=== PATIENT | female | born 1975 | race Caucasian/White ===

== ENCOUNTER 2019-01-23 21:19 | Inpatient (IN) | payer BC ==
[~2019-01-23] VITALS: Ht 167.6 cm; Wt 119.1 kg
[2019-01-23] MEDS: SODIUM CHLORIDE 0.9% 1000ML 1,000 ML IV SCH (01:00)
[~2019-01-23 21:19] MED LIST: METOPROLOL TART50 MG PO; NEXIUM40 MG PO; XANAX0.25 MG PO
--- OUTSIDE RECORDS SUMMARY | 2019-01-23 21:22 | XMS REPORT | Summary of Care ---
Author Organization Unknown Address Unknown Phone Unavailable Encounter HQ Alex(MARIAN) [id number] Date(s): 04/15/14 - 04/16/14 [facility] [address] [address] Discharge Disposition: Home Physician Attending: Rebecca De Dios MD Physician_Referring: Rebecca De Dios MD Reason for Visit 625.3/626.2/218.9 Vital Signs 1 2 3 Most recent to oldest [Reference Range]: 167.64 cm (04/10/14 11:31 AM) Height 98.6 DegF (04/16/14 11:45 AM) 98.0 DegF (04/16/14 8:07 AM) 97.7 DegF (04/16/14 4:16 AM) Temperature Oral [96.4-99.1 DegF] 126 mmHg (04/16/14 11:45 AM) 116 mmHg (04/16/14 8:07 AM) 100 mmHg (04/16/14 4:16 AM) Systolic Blood Pressure [90-140 mmHg] 78 mmHg (04/16/14 11:45 AM) 72 mmHg (04/16/14 8:07 AM) 66 mmHg (04/16/14 4:16 AM) Diastolic Blood Pressure [60-90 mmHg] 16 BRMIN (04/16/14 11:45 AM) 16 BRMIN (04/16/14 8:07 AM) 16 BRMIN (04/16/14 4:16 AM) Respiratory Rate [14-20 BRMIN] 81 bpm (04/16/14 11:45 AM) 76 bpm (04/16/14 8:07 AM) 84 bpm (04/16/14 4:16 AM) Peripheral Pulse Rate [60-100 bpm] 113.182 kg (04/10/14 11:31 AM) Weight 40.27 m2 (04/10/14 11:31 AM) Body Mass Index Problem List Condition Effective Dates Status Health Status Informant Back pain(Confirmed) Active Dysmenorrhea(Confirm Active ed) GERD - Active Gastro-esophageal reflux disease(Confirmed) Hypertension(Confirm Active ed) Menorrhagia(Confirme Active d) Uterine Active fibroid(Confirmed) Allergies, Adverse Reactions, Alerts Substance Reaction Severity Status Advil Cold & Sinus Active Bactrim Active Vicodin Active Medications Al hydroxide/Mg hydroxide/simethicone 200 mg-200 mg-20 mg/5 mL oral suspension 30 mL, Route: PO, Drug Form: SUSP, Dosing Weight 113.182, kg, Q4H, PRN Indigesti on, Start date: 04/15/14 10:59:00, Duration: 30 day, Stop date: 05/15/14 10:58:0 0 Notes: (aluminum hydroxide-magnesium hyd-simethicone [phone]/5ml 30 ml S ) Start Date: 04/15/14 Stop Date: 04/16/14 Status: Discontinued bisacodyl 10 mg, 1 supp, Route: MS, Drug form: SUPP, Q12H, Dosing Weight 113.182, kg, PRN Constipation, Start date: 04/15/14 10:59:00, Duration: 30 day, Stop date: 10:58:00 Notes: (Same As: Dulcolax, Bisco-Lax) Start Date: 04/15/14 Stop Date: 04/16/14 Status: Discontinued cefOXitin (SCIP) + Sodium Chloride 0.9% IV 100 mL 1 gm, Route: IVPB, Q6H, Dosing Weight 113.182, kg, Start date: 04/15/14 18:00:00 , Duration: 1 doses or times, Stop date: 04/15/14 18:00:00 Notes: (Same As: Mefoxin) Start Date: 04/15/14 Stop Date: 04/15/14 Status: Completed cefOXitin (SCIP) + Sodium Chloride 0.9% IV 100 mL 1 gm, Route: IVPB, Q6H, Dosing Weight 113.182, kg, Start date: 04/15/14 12:00:00 , Duration: 1 doses or times, Stop date: 04/15/14 12:00:00 Notes: (Same As: Mefoxin) Start Date: 04/15/14 Stop Date: 04/15/14 Status: Deleted cefOXitin + Sodium Chloride 0.9% IV 100 mL 2 gm, Route: IVPB, ONCALL, Dosing Weight 113.182, kg, Start date: 04/10/14 12:00 :00, Duration: 6 day, Stop date: 04/16/14 11:59:00 Notes: (Same As: Mefoxin) Start Date: 04/10/14 Stop Date: 04/15/14 Status: Completed cyclobenzaprine 5 mg, PO, as needed for muscle spasm, 0 Refill(s) Start Date: 04/10/14 Status: Ordered Demerol HCl 50 mg, 1 mL, Route: IV, Drug form: INJ, Q6H, Dosing Weight 113.182, kg, PRN Pain Score 7-10, Start date: 04/15/14 11:08:00, Duration: 3 doses or times, Stop yunior e: Limited # of times Notes: (Same as: Demerol) "Use Precaution in Elderly, Seizure disorders, and Re nal impairment" Start Date: 04/15/14 Stop Date: 04/16/14 Status: Completed diphenhydrAMINE 12.5 mg, Route: IVP, Drug form: INJ, Q6H, Dosing Weight 113.182, kg, PRN Itching , Start date: 04/15/14 11:14:00, Duration: 30 day, Stop date: 05/15/14 11:13:00 Start Date: 04/15/14 Stop Date: 04/15/14 Status: Discontinued fentaNYL 50 microgram, Route: IVP, Q5Min, Dosing Weight 113.182, kg, PRN Pain Score 7-10, Start date: 04/15/14 11:14:00, Duration: 2 doses or times, Stop date: Limited # of times Start Date: 04/15/14 Stop Date: 04/15/14 Status: Discontinued fentaNYL 25 microgram, Route: IVP, Q5Min, Dosing Weight 113.182, kg, PRN Pain Score 4-6, Start date: 04/15/14 11:14:00, Duration: 4 doses or times, Stop date: Limited # of times Start Date: 04/15/14 Stop Date: 04/15/14 Status: Discontinued flumazenil 0.2 mg, Route: IVP, PRN, Dosing Weight 113.182, kg, PRN Benzodiazepine Reversal, Initial dose, Start date: 04/15/14 11:14:00, Duration: 30 day, Stop date: 05/15 11:13:00 Start Date: 04/15/14 Stop Date: 04/15/14 Status: Discontinued hydromorphone 0.5 mg, Route: IVP, Q5Min, Dosing Weight 113.182, kg, PRN Pain Score 7-10, Start date: 04/15/14 11:14:00, Duration: 4 doses or times, Stop date: Limited # of ti mes Start Date: 04/15/14 Stop Date: 04/15/14 Status: Discontinued Lactated Ringers Injection IV 1,000 mL 1,000 mL, Rate: 125 ml/hr, Infuse over: 8 hr, Route: IV, Dosing Weight 113.182 k g, Total Volume: 1,000, Start date: 04/15/14 10:59:00, Duration: 30 day, Stop da te: 05/15/14 10:58:00 Start Date: 04/15/14 Stop Date: 04/16/14 Status: Discontinued Lactated Ringers Injection IV 1000 mL 1,000 mL, Rate: 125 ml/hr, Infuse over: 8 hr, Route: IV, Dosing Weight 113.182 k g, Total Volume: 1,000, Start date: 04/15/14 11:14:00, Duration: 30 day, Stop da te: 05/15/14 11:13:00 Start Date: 04/15/14 Stop Date: 04/15/14 Status: Discontinued Lactated Ringers Injection IV 1000 mL 1,000 mL, Rate: 25 ml/hr, Infuse over: 40 hr, Route: IV, Dosing Weight 113.182 k g, Total Volume: 1,000, Start date: 04/15/14 7:41:00, Duration: 30 day, Stop yunior e: 05/15/14 7:40:00 Start Date: 04/15/14 Stop Date: 04/15/14 Status: Discontinued magnesium hydroxide 30 ml, Route: PO, Drug Form: SUSP, Dosing Weight 113.182, kg, Daily, PRN Constip ation, Start date: 04/15/14 10:59:00, Duration: 30 day, Stop date: 05/15/14 10:5 8:00 Notes: (Same as: Milk of Page, MOM) Start Date: 04/15/14 Stop Date: 04/16/14 Status: Discontinued meloxicam 15 mg oral tablet 15 mg=1 tab, PO, Daily, 0 Refill(s) Start Date: 04/10/14 Status: Ordered meperidine 12.5 mg, Route: IVP, Q30Min, Dosing Weight 113.182, kg, PRN Other -See Comment, For shivering, Start date: 04/15/14 11:14:00, Duration: 2 doses or times, Stop d ate: Limited # of times Start Date: 04/15/14 Stop Date: 04/15/14 Status: Discontinued metoprolol 50 mg oral tablet, extended release 50 mg=1 tab, PO, Daily, 0 Refill(s) Start Date: 04/10/14 Status: Ordered morphine Sulfate 4 mg, Route: IVP, Q5Min, Dosing Weight 113.182, kg, PRN Pain Score 7-10, Start d ate: 04/15/14 11:14:00, Duration: 3 doses or times, Stop date: Limited # of time s Start Date: 04/15/14 Stop Date: 04/15/14 Status: Discontinued morphine Sulfate 2 mg, Route: IVP, Q5Min, Dosing Weight 113.182, kg, PRN Pain Score 4-6, Start da te: 04/15/14 11:14:00, Duration: 5 doses or times, Stop date: Limited # of times Start Date: 04/15/14 Stop Date: 04/15/14 Status: Discontinued naloxone 0.04 mg, Route: IVP, Q2MIN, Dosing Weight 113.182, kg, PRN Narcotic Reversal, St art date: 04/15/14 11:14:00, Duration: 8 doses or times, Stop date: Limited # of times Start Date: 04/15/14 Stop Date: 04/15/14 Status: Discontinued NexIUM 40 mg oral delayed release capsule 40 mg=1 cap, PO, Daily, 0 Refill(s) Start Date: 04/10/14 Status: Ordered ondansetron 4 mg, Route: IVP, ONCE, Dosing Weight 113.182, kg, PRN Nausea & Vomiting, Start date: 04/15/14 11:14:00 Start Date: 04/15/14 Stop Date: 04/15/14 Status: Discontinued ondansetron 4 mg, 2 mL, Route: IVP, Drug form: INJ, Q6H, Dosing Weight 113.182, kg, PRN Naus ea & Vomiting, Start date: 04/15/14 10:59:00, Duration: 30 day, Stop date: 05/15/14 10:58:00 Notes: (Same as: Bhupendra) Start Date: 04/15/14 Stop Date: 04/16/14 Status: Discontinued oxyCODONE 5 mg, Route: PO, Drug form: TAB, Q4H, Dosing Weight 113.182, kg, PRN Pain Score 4-6, Start date: 04/15/14 11:14:00, Duration: 30 day, Stop date: 05/15/14 11:13: 00 Start Date: 04/15/14 Stop Date: 04/15/14 Status: Discontinued oxyCODONE 10 mg, Route: PO, Drug form: TAB, Q4H, Dosing Weight 113.182, kg, PRN Pain Score 7-10, Start date: 04/15/14 11:14:00, Duration: 30 day, Stop date: 05/15/14 11:1 3:00 Start Date: 04/15/14 Stop Date: 04/15/14 Status: Discontinued oxyCODONE 5 mg/5 mL oral solution 5 mg, Route: NG, Drug form: LIQ, Q4H, Dosing Weight 113.182, kg, PRN Pain Score 4-6, Start date: 04/15/14 11:14:00, Duration: 30 day, Stop date: 05/15/14 11:13: 00 Start Date: 04/15/14 Stop Date: 04/15/14 Status: Discontinued oxyCODONE 5 mg/5 mL oral solution 10 mg, Route: NG, Drug form: LIQ, Q4H, Dosing Weight 113.182, kg, PRN Pain Score 7-10, Start date: 04/15/14 11:14:00, Duration: 30 day, Stop date: 05/15/14 11:1 3:00 Start Date: 04/15/14 Stop Date: 04/15/14 Status: Discontinued promethazine 6.25 mg, Route: IVPB, ONCE, Dosing Weight 113.182, kg, PRN Nausea & Vomiting, Start date: 04/15/14 11:14:00 Start Date: 04/15/14 Stop Date: 04/15/14 Status: Discontinued promethazine 12.5 mg, 0.5 mL, Route: IM, Drug form: INJ, Q4H, Dosing Weight 113.182, kg, PRN Nausea & Vomiting, Start date: 04/15/14 10:59:00, Duration: 30 day, Stop date: 05/15/14 10:58:00 Notes: Do not give IV push. (Same as: Phenergan) Start Date: 04/15/14 Stop Date: 04/16/14 Status: Discontinued simethicone 160 mg, 2 tab, Route: PO, Drug form: CHEWTAB, Q2H, Dosing Weight 113.182, kg, MS N Gas, Start date: 04/15/14 10:59:00, Duration: 30 day, Stop date: 05/15/14 10:5 8:00 Notes: (Same as: Mylicon) Start Date: 04/15/14 Stop Date: 04/16/14 Status: Discontinued Tylenol with Codeine #3 oral tablet 2 tab, Route: PO, Drug Form: TAB, Dosing Weight 113.182, kg, Q6H, PRN Pain Score 4-6, Start date: 04/16/14 9:13:00, Duration: 30 day, Stop date: 05/16/14 9:12:00 Notes: Do not exceed 4gm/day of acetaminophen. (Same as: Tylenol with Codeine # 3) Start Date: 04/16/14 Stop Date: 04/16/14 Status: Discontinued Tylenol with Codeine #3 oral tablet 1 tab, PO, Q6H, for pain, # 30 tab, 0 Refill(s) Start Date: 04/16/14 Status: Ordered Tylenol with Codeine #3 oral tablet 1 tab, Route: PO, Drug Form: TAB, Dosing Weight 113.182, kg, Q6H, PRN Pain Score 1-3, Start date: 04/16/14 9:11:00, Duration: 30 day, Stop date: 05/16/14 9:10:00 Notes: Do not exceed 4gm/day of acetaminophen. (Same as: Tylenol with Codeine # 3) Start Date: 04/16/14 Stop Date: 04/16/14 Status: Discontinued Results BLOOD BANK RESULTS Most recent to 1 2 oldest [Reference Range]: ABO/Rh A POS *Unknown* (04/10/14 12:35 PM) Antibody Scrn Negative (04/10/14 12:35 PM) CHEM PANEL Most recent to 1 2 oldest [Reference Range]: Glucose Lvl [70-99 92 mg/dL 1 mg/dL] (04/10/14 12:35 PM) 1Interpretive Data: Adult reference range values reflect the clinical guidelines of the [place] [employer]. URINE CHEM Most recent to 1 2 oldest [Reference Range]: U Preg [Negative] Negative (04/15/14 6:15 AM) IMMUNOLOGY Most recent to 1 2 oldest [Reference Range]: Treponemal Scr [Non Non Reactive Reactive] *NA* (04/10/14 12:35 PM) HIV 1/2 Ab Negative [Negative] *NA* (04/10/14 12:35 PM) Hep Bs Ag [Negative] Negative *NA* (04/10/14 12:35 PM) Hep C Ab Negative *NA* (04/10/14 12:35 PM) HEMATOLOGY Most recent to 1 2 oldest [Reference Range]: WBC [3.7-10.4 K/CMM] 10.3 K/CMM 10.6 K/CMM (04/16/14 6:20 AM) *HI* (04/10/14 12:35 PM) RBC [4.20-5.40 4.25 M/CMM 5.14 M/CMM M/CMM] (04/16/14 6:20 AM) (04/10/14 12:35 PM) Hgb [12.0-16.0 g/dL] 12.3 g/dL 14.9 g/dL (04/16/14 6:20 AM) (04/10/14 12:35 PM) Hct [36.0-48.0 %] 37.1 % 44.9 % (04/16/14 6:20 AM) (04/10/14 12:35 PM) MCV [80.0-98.0 fL] 87.3 fL 87.2 fL (04/16/14 6:20 AM) (04/10/14 12:35 PM) MCH [27.0-31.0 pg] 29.0 pg 29.0 pg (04/16/14 6:20 AM) (04/10/14 12:35 PM) MCHC [32.0-36.0 33.3 g/dL 33.2 g/dL g/dL] (04/16/14 6:20 AM) (04/10/14 12:35 PM) RDW [11.5-14.5 %] 13.6 % 13.3 % (04/16/14 6:20 AM) (04/10/14 12:35 PM) Platelet [133-450 241 K/CMM 275 K/CMM K/CMM] (04/16/14 6:20 AM) (04/10/14 12:35 PM) MPV [7.4-10.4 fL] 7.8 fL 8.2 fL (04/16/14 6:20 AM) (04/10/14 12:35 PM) Segs [45.0-75.0 %] 73.3 % 66.7 % (04/16/14 6:20 AM) (04/10/14 12:35 PM) Lymphocytes 19.2 % 25.8 % [20.0-40.0 %] *LOW* (04/10/14 12:35 PM) (04/16/14 6:20 AM) Monocytes [2.0-12.0 5.7 % 5.0 % %] (04/16/14 6:20 AM) (04/10/14 12:35 PM) Eosinophils [0.0-4.0 1.3 % 1.4 % %] (04/16/14 6:20 AM) (04/10/14 12:35 PM) Basophils [0.0-1.0 0.5 % 1.1 % %] (04/16/14 6:20 AM) *HI* (04/10/14 12:35 PM) Segs-Bands # 7.5 K/CMM 7.1 K/CMM [1.5-8.1 K/CMM] (04/16/14 6:20 AM) (04/10/14 12:35 PM) Lymphocytes # 2.0 K/CMM 2.7 K/CMM [1.0-5.5 K/CMM] (04/16/14 6:20 AM) (04/10/14 12:35 PM) Monocytes # [0.0-0.8 0.6 K/CMM 0.5 K/CMM K/CMM] (04/16/14 6:20 AM) (04/10/14 12:35 PM) Eosinophils # 0.1 K/CMM 0.2 K/CMM [0.0-0.5 K/CMM] (04/16/14 6:20 AM) (04/10/14 12:35 PM) Basophils # [0.0-0.2 0.1 K/CMM K/CMM] (04/10/14 12:35 PM) Medications Administered During Your Visit No data available for this section Immunizations No data available for this section Procedures Procedure Type Body Site Date of Procedure Related Diagnosis Arm repair1 Cholecystectomy Foot joint operations Lumpectomy of breast Tonsillectomy 1unable to full extend due to tension bands Social History Social History Type Response Substance Abuse Use: None Alcohol Use: Never Smoking Status Never smoker, Exposure to Tobacco Smoke None, Cigarette Smoking Last 365 Days No, Reg Smoking Cessation Counseling No
--- OUTSIDE RECORDS SUMMARY | 2019-01-23 21:22 | XMS REPORT | Summary of Care ---
Author Author [facility] Organization [facility] Address Unknown Phone Unavailable Encounter HQ Deannantr_nicole(FIN) [id number] Date(s): 06/02/17 - 06/03/17 [facility] [address], [address] [place], [place] [id number]- [phone] Vital Signs No data available for this section Problem List Condition Effective Dates Status Health Status Informant Anxiety(Confirmed) Resolved Asthma(Confirmed) Active Depression(Confirmed Resolved ) GERD - Active Gastro-esophageal reflux disease(Confirmed) History of liver Active disease(Confirmed) Hypertension(Confirm Active ed) Hypertriglyceridemia Active (Confirmed) Morbid Active obesity(Confirmed) Allergies, Adverse Reactions, Alerts Substance Reaction Severity Status acetaminophen1 Active sulfamethoxazole-trimetho Active prim2 ibuprofen-pseudoephedrine Active 3 Advil Cold & Sinus Active Bactrim Active Vicodin Active acetaminophen-HYDROcodone Active 4 guaiFENesin5 Active 1Data migrated from [employer] on 09/30/14. Originally documented as TYLENOL. 2Data migrated from [employer] on 09/30/14. Originally documented as BACTRIM. 3Data migrated from [employer] on 09/30/14. Originally documented as ADVIL COLD SINUS. 4Data migrated from [employer] on 09/30/14. Originally documented as VICODIN. 5Data migrated from [employer] on 09/30/14. Originally documented as ROBITUSIN. Medications No data available for this section Results No data available for this section Immunizations Given and Recorded Vaccine Date Status Refusal Reason Hx influenza vaccine-unspecified 05/05/17 Recorded Procedures Procedure Date Related Diagnosis Body Site Microscopic examination of cervical 03/05/15 Papanicolaou smear1 Partial hysterectomy 04/05/14 Colonoscopy2 03/05/14 Arm repair3 Cholecystectomy Foot joint operations Lumpectomy of breast Mammogram4 Tonsillectomy 1negative 2negative 3unable to full extend due to tension bands 4negative Social History Social History Type Response Substance Abuse Use: None. Exercise 1 Employment/School Status: Employed. Work/School description: [employer]. Alcohol Never Smoking Status Never smoker; Exposure to Tobacco Smoke None; Cigarette Smoking Last 365 Days No; Reg Smoking Cessation Counseling No 1not currently Assessment and Plan No data available for this section
--- OUTSIDE RECORDS SUMMARY | 2019-01-23 21:22 | XMS REPORT | Summary of Care ---
Author Author [facility] Organization [facility] Address Unknown Phone Unavailable Encounter NAKIA Johnson(MARIAN) [id number] Date(s): 01/15/16 - 01/15/16 [facility] [address] [place] [address]- [phone] Discharge Disposition: Home or Self Care Attending Physician: Job Ryder Referring Physician: Job Ryder Vital Signs No data available for this section Problem List Condition Effective Dates Status Health Status Informant Allergy(Confirmed)1 Resolved Anxiety(Confirmed) Resolved Back pain(Confirmed) Active Depression(Confirmed Resolved ) Dysmenorrhea(Confirm Active ed) GERD - Active Gastro-esophageal reflux disease(Confirmed) History of liver Resolved disease(Confirmed) Hypertension(Confirm Active ed) Menorrhagia(Confirme Active d) Morbid Active obesity(Confirmed) Uterine Active fibroid(Confirmed) 1multiple Allergies, Adverse Reactions, Alerts Substance Reaction Severity Status acetaminophen1 Active acetaminophen-HYDROcodone Active 2 Advil Cold & Sinus Active Bactrim Active guaiFENesin3 Active ibuprofen-pseudoephedrine Active 4 sulfamethoxazole-trimetho Active prim5 Vicodin Active 1Data migrated from [employer] on 09/30/14. Originally documented as TYLENOL. 2Data migrated from [employer] on 09/30/14. Originally documented as VICODIN. 3Data migrated from [employer] on 09/30/14. Originally documented as ROBITUSIN. 4Data migrated from [employer] on 09/30/14. Originally documented as ADVIL COLD SINUS. 5Data migrated from [employer] on 09/30/14. Originally documented as BACTRIM. Medications No data available for this section Results No data available for this section Immunizations No data available for this section Procedures Procedure Date Related Diagnosis Body Site Microscopic examination of cervical 03/05/15 Papanicolaou smear1 Partial hysterectomy 04/05/14 Colonoscopy2 03/05/14 Arm repair3 Cholecystectomy Foot joint operations Lumpectomy of breast Mammogram4 Tonsillectomy 1negative 2negative 3unable to full extend due to tension bands 4negative Social History Social History Type Response Substance Abuse Use: None. Exercise 1 Employment/School Status: Employed. Alcohol Never Smoking Status Never smoker; Exposure to Tobacco Smoke None; Cigarette Smoking Last 365 Days No; Reg Smoking Cessation Counseling No 1not currently Assessment and Plan No data available for this section
--- OUTSIDE RECORDS SUMMARY | 2019-01-23 21:22 | XMS REPORT | Summary of Care ---
Author Organization Unknown Address Unknown Phone Unavailable Encounter HQ Encntr_nicole([facility]) [id number] Date(s): 11/15/13 - 11/15/13 [facility] Outpatient Imaging - [address] [address] [place] Discharge Disposition: Home Physician Attending: Roel Parker MD Reason for Visit 724.5 - BACKACHE NOS Problem List No data available for this section Allergies, Adverse Reactions, Alerts Substance Reaction Severity Status Advil Cold & Sinus Active Medications No data available for this section Medications Administered During Your Visit No data available for this section Immunizations No data available for this section
--- OUTSIDE RECORDS SUMMARY | 2019-01-23 21:22 | XMS REPORT | Summary of Care ---
Author Organization Unknown Address Unknown Phone Unavailable Encounter HQ Deannantr_nicole(MARIAN) [id number] Date(s): 03/05/14 - 03/05/14 [facility] [address] Discharge Disposition: Home Physician Attending: Rebecca De Dios MD Physician_Referring: Rebecca De Dois MD Reason for Visit 626.2-ABNORMAL MENSTRUAL PERIODS Problem List No data available for this section Allergies, Adverse Reactions, Alerts Substance Reaction Severity Status Advil Cold & Sinus Active Medications No data available for this section Medications Administered During Your Visit No data available for this section Immunizations No data available for this section
--- OUTSIDE RECORDS SUMMARY | 2019-01-23 21:22 | XMS REPORT | Summary of Care ---
Author Author [facility] Organization [facility] Address Unknown Phone Unavailable Encounter NAKIA Johnson(MARIAN) [id number] Date(s): 01/01/18 - 01/01/18 [facility] [address] [place] [address]- Discharge Disposition: Home or Self Care Attending Physician: Rebecca De Dios MD Referring Physician: Rebecca De Dios MD Vital Signs No data available for this [...] Procedures Procedure Date Related Diagnosis Body Site Status Microscopic examination of cervical 03/05/15 Completed Papanicolaou smear1 Partial hysterectomy 04/05/14 Completed Colonoscopy2 03/05/14 Completed Arm repair3 Completed Cholecystectomy Completed Foot joint operations Completed Lumpectomy of breast Completed Mammogram4 Completed Tonsillectomy Completed 1negative 2negative 3unable to full extend due to tension bands 4negative Social History Social History Type Response Substance Abuse Use: None. Exercise 1 Employment/School Status: Employed. Work/School description: [employer]. Alcohol Never Smoking Status Never smoker; Exposure to Tobacco Smoke None; Cigarette Smoking Last 365 Days No; Reg Smoking Cessation Counseling No entered on: 05/31/17 1not currently Assessment and Plan No data available for this section
--- OUTSIDE RECORDS SUMMARY | 2019-01-23 21:22 | XMS REPORT | Summary of Care ---
Author Author [facility] Outpatient Imaging [facility] Outpatient Imaging [facility] Address Unknown Phone Unavailable Encounter NAKIA Johnson(MARIAN) [id number] Date(s): 12/31/14 - 12/31/14 [facility] Outpatient Imaging [facility] [address] [facility] [place], [place] [address] [place] [address] [phone] Discharge Disposition: Home Attending Physician: Rosalie Mcpherson MD Vital Signs No data available for [...] Procedures Procedure Date Related Diagnosis Body Site Arm repair1 Cholecystectomy Foot joint operations Lumpectomy of breast Tonsillectomy 1unable to full extend due to tension bands Social History Social History Type Response Substance Abuse Use: None. Alcohol Never Smoking Status Never smoker; Exposure to Tobacco Smoke None; Cigarette Smoking Last 365 Days No; Reg Smoking Cessation Counseling No Assessment and Plan No data available for this section
--- OUTSIDE RECORDS SUMMARY | 2019-01-23 21:22 | XMS REPORT | Summary of Care ---
Author Author [facility] Outpatient Imaging [facility] Outpatient Imaging [facility] Address Unknown Phone Unavailable Encounter NAKIA Johnson(MARIAN) [id number] Date(s): 03/03/15 - 03/03/15 [facility] Outpatient Imaging [facility] [address] [facility] [address] [address] [phone] Final: Abdominal Pain, Right Upper Quadrant Final: HEPATOMEGALY Final: Unspecified Disorder of Liver Discharge Disposition: Home Attending Physician: Luis Schafer MD Vital Signs No data available for [...]
--- OUTSIDE RECORDS SUMMARY | 2019-01-23 21:22 | XMS REPORT | Summary of Care ---
Author Organization Unknown Address Unknown Phone Unavailable Encounter HQ Samir_nicole(FIN) [id number] Date(s): 09/03/14 - 09/03/14 [facility] Outpatient Imaging - [place] [address] [place] [address] [facility] [phone] Discharge Disposition: Home Physician Attending: JASE HUNTER Vital Signs No data available for this section Problem List Condition Effective Dates Status Health Status Informant Back pain(Confirmed) Active Dysmenorrhea(Confirm Active ed) GERD - Active Gastro-esophageal reflux disease(Confirmed) Hypertension(Confirm Active ed) Menorrhagia(Confirme Active d) Uterine Active fibroid(Confirmed) Allergies, Adverse Reactions, Alerts Substance Reaction Severity Status Advil Cold & Sinus Active Bactrim Active Vicodin Active Medications No data available for this [...]
--- OUTSIDE RECORDS SUMMARY | 2019-01-23 21:22 | XMS REPORT | Continuity of Care Document ---
Author Author [employer] Organization [employer] Address Unknown Phone Unavailable Care Team Providers Care Carton Folder Name Role Phone [employer] Unavailable Unavailable Problems Problem Status Onset Date Classification Date Reported Comments Source Unspecified ovarian cyst, left side 01/06/2018 07/21/2018 [facility] R10.2 Active 12/25/2017 [facility] DX: M79.661=PAIN IN RIGHT LOWER LEG/S86. Active 01/11/2016 [facility] 789.01 - ABDMNAL PAIN RT Active 03/03/2015 [facility] 625.3/626.2/218.9 Active 03/28/2014 [facility] UNK Active 03/28/2014 [facility] 626.2-ABNORMAL MENSTRUAL PERIODS Active 03/03/2014 [facility] 724.5 - BACKACHE NOS Active 11/19/2013 [facility] Anxiety (finding) Resolved Problem 07/21/2018 [facility] Asthma (disorder) Active Problem 07/21/2018 [facility] Depressive disorder (disorder) Resolved Problem 07/21/2018 [facility] Gastroesophageal reflux disease (disorder) Active Problem 07/21/2018 [facility] [place] History of - liver disease (context-dependent category) Active Problem 07/21/2018 [facility] Hypertensive disorder, systemic arterial (disorder) Active Problem 07/21/2018 [facility] [place] Hypertriglyceridemia (disorder) Active Problem 07/21/2018 [facility] Morbid obesity (disorder) Active Problem 07/21/2018 [facility] Final: Abdominal Pain, Right Upper Quadrant 03/06/2015 [facility] Mahajan Final: HEPATOMEGALY 03/06/2015 [facility] [place] Final: Unspecified Disorder of Liver 03/06/2015 [facility] Mahajan Backache (finding) Active Problem [facility]/18[facility]2016 [facility] Dysmenorrhea (disorder) Active Problem 01/18/2016 [facility] Wu,[facility] Menorrhagia (finding) Active Problem 01/18/2016 [facility] Wu,[facility] Uterine leiomyoma (disorder) Active Problem 01/18/2016 [facility] Wu,[facility] Allergic disposition (disorder) Resolved Problem 01/18/2016 multiple [facility] Acquired absence of both cervix and uterus 07/21/2018 [facility] Medications Medication Details Route Status Patient Instructions Ordering Provider Order Date Source amoxicillin 500 mg oral tablet 500 mg=1 tab, PO, BID, X 10 day, # 20 tab, 0 Refill(s), Pharmacy: [facility] [id number] Active 06/02/2017 [facility] Fluticasone propionate 0.05 MG/ACTUAT Metered Dose Nasal [place] See Instructions, # 48 mL, Refill(s) 2, SHAKE LIQUID AND USE 1 SPRAY IN EACH NOSTRIL DAILY, Pharmacy: [facility] [id number] Active 06/01/2017 [facility] Fluticasone propionate 0.05 MG/ACTUAT Metered Dose Nasal [place] 1 spray, NASAL, Daily, # 1 ea, 2 Refill(s), Pharmacy: [facility] [id number] No Longer Active 05/31/2017 [facility] benzonatate 100 mg oral capsule 100 mg=1 cap, PO, TID, do not crush or chew, X 10 day, # 30 cap, 0 Refill(s), Pharmacy: [facility] [id number] Active 05/31/2017 [facility] 200 ACTUAT Albuterol 0.09 MG/ACTUAT Metered Dose Inhaler [ProAir HFA] 1 puff, INHALER, Q4H, PRN for wheezing, # 8.5 gm, 0 Refill(s), [facility] [id number] Active 05/31/2017 [facility] Acetaminophen 300 MG / Codeine Phosphate 30 MG Oral Tablet [Tylenol with Codeine #3] 1 tab, PO, Q6H, for pain, # 30 tab, 0 Refill(s) Active 04/16/2014 [facility] Acetaminophen 300 MG / Codeine Phosphate 30 MG Oral Tablet [Tylenol with Codeine #3] 2 tab, Route: PO, Drug Form: TAB, Dosing Weight 113.182, kg, Q6H, PRN Pain Score 4-6, Start date: 04/16/14 9:13:00, Duration: 30 day, Stop date: 05/16/14 9:12:00Notes: Do not exceed 4gm/day of acetaminophen. (Same as: Tylenol with Codeine # 3) Inactive 04/16/2014 [facility] Acetaminophen 300 MG / Codeine Phosphate 30 MG Oral Tablet [Tylenol with Codeine #3] 1 tab, Route: PO, Drug Form: TAB, Dosing Weight 113.182, kg, Q6H, PRN Pain Score 1-3, Start date: 04/16/14 9:11:00, Duration: 30 day, Stop date: 05/16/14 9:10:00Notes: Do not exceed 4gm/day of acetaminophen. (Same as: Tylenol with Codeine # 3) Inactive 04/16/2014 [facility] cefOXitin (SCIP) + Sodium Chloride 0.9% IV 100 mL 1 gm, Route: IVPB, Q6H, Dosing Weight 113.182, kg, Start date: 04/15/14 18:00:00, Duration: 1 doses or times, Stop date: 04/15/14 18:00:00Notes: (Same As: Mefoxin) Inactive 04/16/2014 [facility] Cefoxitin 20 MG/ML Injectable Solution 1 gm, Route: IVPB, Q6H, Dosing Weight 113.182, kg, Start date: 04/15/14 12:00:00, Duration: 1 doses or times, Stop date: 04/15/14 12:00:00Notes: (Same As: Mefoxin) Inactive 04/15/2014 [facility] Oxycodone 5 mg, Route: PO, Drug form: TAB, Q4H, Dosing Weight 113.182, kg, PRN Pain Score 4-6, Start date: 04/15/14 11:14:00, Duration: 30 day, Stop date: 05/15/14 11:13:00 Inactive 04/15/2014 [facility] Promethazine 6.25 mg, Route: IVPB, ONCE, Dosing Weight 113.182, kg, PRN Nausea & Vomiting, Start date: 04/15/14 11:14:00 Inactive 04/15/2014 [facility] Ondansetron 4 mg, Route: IVP, ONCE, Dosing Weight 113.182, kg, PRN Nausea & Vomiting, Start date: 04/15/14 11:14:00 Inactive 04/15/2014 [facility] Fentanyl 50 microgram, Route: IVP, Q5Min, Dosing Weight 113.182, kg, PRN Pain Score 7-10, Start date: 04/15/14 11:14:00, Duration: 2 doses or times, Stop date: Limited # of times Inactive 04/15/2014 [facility] Morphine 4 mg, Route: IVP, Q5Min, Dosing Weight 113.182, kg, PRN Pain Score 7-10, Start date: 04/15/14 11:14:00, Duration: 3 doses or times, Stop date: Limited # of times Inactive 04/15/2014 [facility] Meperidine 12.5 mg, Route: IVP, Q30Min, Dosing Weight 113.182, kg, PRN Other -See Comment, For shivering, Start date: 04/15/14 11:14:00, Duration: 2 doses or times, Stop date: Limited # of times Inactive 04/15/2014 [facility] Oxycodone Hydrochloride 1 MG/ML Oral Solution 5 mg, Route: NG, Drug form: LIQ, Q4H, Dosing Weight 113.182, kg, PRN Pain Score 4-6, Start date: 04/15/14 11:14:00, Duration: 30 day, Stop date: 05/15/14 11:13:00 Inactive 04/15/2014 [facility] Diphenhydramine 12.5 mg, Route: IVP, Drug form: INJ, Q6H, Dosing Weight 113.182, kg, PRN Itching, Start date: 04/15/14 11:14:00, Duration: 30 day, Stop date: 05/15/14 11:13:00 Inactive 04/15/2014 [facility] Naloxone 0.04 mg, Route: IVP, Q2MIN, Dosing Weight 113.182, kg, PRN Narcotic Reversal, Start date: 04/15/14 11:14:00, Duration: 8 doses or times, Stop date: Limited # of times Inactive 04/15/2014 [facility] Flumazenil 0.2 mg, Route: IVP, PRN, Dosing Weight 113.182, kg, PRN Benzodiazepine Reversal, Initial dose, Start date: 04/15/14 11:14:00, Duration: 30 day, Stop date: 05/15/14 11:13:00 Inactive 04/15/2014 [facility] Hydromorphone 0.5 mg, Route: IVP, Q5Min, Dosing Weight 113.182, kg, PRN Pain Score 7-10, Start date: 04/15/14 11:14:00, Duration: 4 doses or times, Stop date: Limited # of times Inactive 04/15/2014 [facility] Calcium Chloride 0.0014 MEQ/ML / Potassium Chloride 0.004 MEQ/ML / Sodium Chloride 0.103 MEQ/ML / Sodium Lactate 0.028 MEQ/ML Injectable Solution 1,000 mL, Rate: 125 ml/hr, Infuse over: 8 hr, Route: IV, Dosing Weight 113.182 kg, Total Volume: 1,000, Start date: 04/15/14 11:14:00, Duration: 30 day, Stop date: 05/15/14 11:13:00 Inactive 04/15/2014 [facility] Demerol HCl 50 mg, 1 mL, Route: IV, Drug form: INJ, Q6H, Dosing Weight 113.182, kg, PRN Pain Score 7-10, Start date: 04/15/14 11:08:00, Duration: 3 doses or times, Stop date: Limited # of timesNotes: (Same as: Emiliano gruber) "Use Precaution in Elderly, Seizure disorders, and Renal impairment" No Longer Active 04/15/2014 [facility] Magnesium Hydroxide 30 ml, Route: PO, Drug Form: SUSP, Dosing Weight 113.182, kg, Daily, PRN Constipation, Start date: 04/15/14 10:59:00, Duration: 30 day, Stop date: 05/15/14 10:58:00Notes: (Same as: Milk of Magnesia, MOM) No Longer Active 04/15/2014 [facility] Aluminum Hydroxide 40 MG/ML / Magnesium Hydroxide 40 MG/ML / Simethicone 4 MG/ML Oral Suspension 30 mL, Route: PO, Drug Form: SUSP, Dosing Weight 113.182, kg, Q4H, PRN Indigestion, Start date: 04/15/14 10:59:00, Duration: 30 day, Stop date: 05/15/14 10:58:00Notes: (aluminum hydroxide- magnesium hyd-simethicone [phone]/5ml 30 ml ud MELODY) No Longer Active 04/15/2014 [facility] Calcium Chloride 0.0014 MEQ/ML / Potassium Chloride 0.004 MEQ/ML / Sodium Chloride 0.103 MEQ/ML / Sodium Lactate 0.028 MEQ/ML Injectable Solution 1,000 mL, Rate: 125 ml/hr, Infuse over: 8 hr, Route: IV, Dosing Weight 113.182 kg, Total Volume: 1,000, Start date: 04/15/14 10:59:00, Duration: 30 day, Stop date: 05/15/14 10:58:00 No Longer Active 04/15/2014 [facility] Promethazine 12.5 mg, 0.5 mL, Route: IM, Drug form: INJ, Q4H, Dosing Weight 113.182, kg, PRN Nausea & Vomiting, Start date: 04/15/14 10:59:00, Duration: 30 day, Stop date: 05/15/14 10:58:00Notes: Do not give IV p ush. (Same as: Phenergan) No Longer Active 04/15/2014 [facility] Bisacodyl 10 mg, 1 supp, Route: VA, Drug form: SUPP, Q12H, Dosing Weight 113.182, kg, PRN Constipation, Start date: 04/15/14 10:59:00, Duration: 30 day, Stop date: 05/15/14 10:58:00Notes: (Same As: Dulcolax, Bisco- Lax) No Longer Active 04/15/2014 [facility] Simethicone 160 mg, 2 tab, Route: PO, Drug form: [place]AB, Q2H, Dosing Weight 113.182, kg, PRN Gas, Start date: 04/15/14 10:59:00, Duration: 30 day, Stop date: 05/15/14 10:58:00Notes: (Same as: Mylicon) No Longer Active 04/15/2014 [facility] Ondansetron 4 mg, 2 mL, Route: IVP, Drug form: INJ, Q6H, Dosing Weight 113.182, kg, PRN Nausea & Vomiting, Start date: 04/15/14 10:59:00, Duration: 30 day, Stop date: 05/15/14 10:58:00Notes: (Same as: Zofran) No Longer Active 04/15/2014 [facility] Calcium Chloride 0.0014 MEQ/ML / Potassium Chloride 0.004 MEQ/ML / Sodium Chloride 0.103 MEQ/ML / Sodium Lactate 0.028 MEQ/ML Injectable Solution 1,000 mL, Rate: 25 ml/hr, Infuse over: 40 hr, Route: IV, Dosing Weight 113.182 kg, Total Volume: 1,000, Start date: 04/15/14 7:41:00, Duration: 30 day, Stop date: 05/15/14 7:40:00 Inactive 04/15/2014 [facility] meloxicam 15 mg oral tablet 15 mg=1 tab, PO, Daily, 0 Refill(s) Active 04/10/2014 [facility] cyclobenzaprine 5 mg, PO, as needed for muscle spasm, 0 Refill(s) Active 04/10/2014 [facility] Esomeprazole 40 MG Enteric Coated Capsule [Nexium] 40 mg=1 cap, PO, Daily, 0 Refill(s) Active 04/10/2014 [facility] metoprolol 50 mg oral tablet, extended release 50 mg=1 tab, PO, Daily, 0 Refill(s) Active 04/10/2014 [facility] Cefoxitin 2 gm, Route: IVPB, ONCALL, Dosing Weight 113.182, kg, Start date: 04/10/14 12:00:00, Duration: 6 day, Stop date: 04/16/14 11:59:00Notes: (Same As: Mefoxin) No Longer Active 04/10/2014 [facility] Allergies, Adverse Reactions, Alerts Substance Category Reaction Severity Reaction type Status Date Reported Comments Source acetaminophen<sup>1</sup> Assertion Drug allergy Active Data migrated from [employer] on 09/30/14. Originally documented as TYLENOL. [facility] sulfamethoxazole-trimethoprim<sup>2</sup> Assertion Drug allergy Active Data migrated from [employer] on 09/30/14. Originally documented as BACTRIM. [facility] ibuprofen-pseudoephedrine<sup>3</sup> Assertion Drug allergy Active Data migrated from [employer] on 09/30/14. Originally documented as ADVIL COLD SINUS. [facility] Advil Cold & Sinus Assertion Drug allergy Active [facility] Bactrim Assertion Drug allergy Active [facility] Vicodin Assertion Drug allergy Active [facility] acetaminophen-HYDROcodone<sup>4</sup> Assertion Drug allergy Active Data migrated from [employer] on 09/30/14. Originally documented as VICODIN. [facility] guaiFENesin<sup>5</sup> Assertion Drug allergy Active Data migrated from [employer] on 09/30/14. Originally documented as ROBITUSIN. [facility] acetaminophen-HYDROcodone<sup>2</sup> Assertion Drug allergy Active Data migrated from [employer] on 09/30/14. Originally documented as VICODIN. [facility] guaiFENesin<sup>3</sup> Assertion Drug allergy Active Data migrated from [employer] on 09/30/14. Originally documented as ROBITUSIN. [facility] ibuprofen-pseudoephedrine<sup>4</sup> Assertion Drug allergy Active Data migrated from [employer] on 09/30/14. Originally documented as ADVIL COLD SINUS. [facility] sulfamethoxazole-trimethoprim<sup>5</sup> Assertion Drug allergy Active Data migrated from [employer] on 09/30/14. Originally documented as BACTRIM. [facility] Immunizations Immunization Date Given Site Status Last Updated Comments Source Hx influenza vaccine-unspecified 05/05/2017 completed [facility] Results Order Name Results Value Reference Range Date Interpretation Comments Source HEMATOLOGY Lymphocytes 19.2 20.0 - 40.0 04/16/2014 [facility] HEMATOLOGY Segs 73.3 45.0 - 75.0 04/16/2014 [facility] HEMATOLOGY Monocytes 5.7 2.0 - 12.0 04/16/2014 [facility] HEMATOLOGY Eosinophils 1.3 0.0 - 4.0 04/16/2014 [facility] HEMATOLOGY Basophils 0.5 0.0 - 1.0 04/16/2014 [facility] HEMATOLOGY Lymphocytes # 2.0 1.0 - 5.5 04/16/2014 [facility] HEMATOLOGY Segs-Bands # 7.5 1.5 - 8.1 04/16/2014 [facility] HEMATOLOGY Monocytes # 0.6 0.0 - 0.8 04/16/2014 [facility] HEMATOLOGY Eosinophils # 0.1 0.0 - 0.5 04/16/2014 [facility] RBC 4.25 4.20 - 5.40 04/16/2014 [facility] Hgb 12.3 12.0 - 16.0 04/16/2014 [facility] MCHC 33.3 32.0 - 36.0 04/16/2014 [facility] MCH 29.0 27.0 - 31.0 04/16/2014 [facility] MCV 87.3 80.0 - 98.0 04/16/2014 [facility] HEMATOLOGY MPV 7.8 7.4 - 10.4 04/16/2014 [facility] Hct 37.1 36.0 - 48.0 04/16/2014 [facility] Platelet 241 133 - 450 04/16/2014 [facility] RDW 13.6 11.5 - 14.5 04/16/2014 [facility] WBC 10.3 3.7 - 10.4 04/16/2014 [facility] URINE CHEM U Preg Negative (04/15/14 6:15 AM) Negative 04/15/2014 [facility] BLOOD BANK RESULTS ABO/Rh A POS 04/10/2014 [facility] BLOOD BANK RESULTS Antibody Scrn Negative (04/10/14 12:35 PM) 04/10/2014 [facility] CHEM PANEL Glucose Lvl 92 70 - 99 04/10/2014 <sup>1</sup>Interpretive Data: Adult reference range values reflect the clinical guidelines
of the [place] [employer]. [facility] Platelet 275 133 - 450 04/10/2014 [facility] MPV 8.2 7.4 - 10.4 04/10/2014 [facility] RDW 13.3 11.5 - 14.5 04/10/2014 [facility] WBC 10.6 3.7 - 10.4 04/10/2014 [facility] Hgb 14.9 12.0 - 16.0 04/10/2014 [facility] RBC 5.14 4.20 - 5.40 04/10/2014 [facility] MCV 87.2 80.0 - 98.0 04/10/2014 [facility] Hct 44.9 36.0 - 48.0 04/10/2014 [facility] MCHC 33.2 32.0 - 36.0 04/10/2014 [facility] MCH 29.0 27.0 - 31.0 04/10/2014 [facility] HEMATOLOGY Monocytes # 0.5 0.0 - 0.8 04/10/2014 [facility] HEMATOLOGY Eosinophils # 0.2 0.0 - 0.5 04/10/2014 [facility] HEMATOLOGY Basophils # 0.1 0.0 - 0.2 04/10/2014 [facility] HEMATOLOGY Segs 66.7 45.0 - 75.0 04/10/2014 [facility] Lymphocytes 25.8 20.0 - 40.0 04/10/2014 [facility] HEMATOLOGY Eosinophils 1.4 0.0 - 4.0 04/10/2014 [facility] Monocytes 5.0 2.0 - 12.0 04/10/2014 [facility] Basophils 1.1 0.0 - 1.0 04/10/2014 [facility] Lymphocytes # 2.7 1.0 - 5.5 04/10/2014 [facility] Segs-Bands # 7.1 1.5 - 8.1 04/10/2014 [facility] Treponemal Scr Non Reactive *NA* (04/10/14 12:35 PM) Non Reactive 04/10/2014 [facility] HIV 1/2 Ab Negative *NA* (04/10/14 12:35 PM) Negative 04/10/2014 [facility] Hep C Ab Negative *NA* (04/10/14 12:35 PM) 04/10/2014 [facility] Hep Bs Ag Negative *NA* (04/10/14 12:35 PM) Negative 04/10/2014 [facility] Pathology Reports No Data Provided for This Section Diagnostic Reports Report Value Date Source Pelvis w Pelvis Transvaginal US EXAM: US PELVIS HISTORY: 42 years year-old Female with - pelvic pain COMPARISON: US Pelvis 03/05/2014. TECHNIQUE: Real-time grayscale and Doppler ultrasound of the pelvis was obtained via transabdominal and transvaginal approaches. Endovaginal ultrasound was performed to try and better evaluate the endometrial stripe and adnexal regions. FINDINGS: Uterus: Prior hysterectomy. Ovaries \\T\\ Adnexa: Of note, the bilateral ovaries are seen only on the transabdominal view. The right ovary measures 4.6 x 2.2 x 3.0 cm and the left measures 4.5 x 3.0 x 3.2 cm. A complex 2.4 x 1.4 x 2.1 cm cyst is noted in the left ovary. No adnexal masses identified. Color flow is preserved to both ovaries. Other: No free fluid. IMPRESSION: 1. Prior hysterectomy. 2. Complex left ovarian cyst, possibly a hemorrhagic cyst. Can consider repeat ultrasound in 6-12 weeks to document resolution. SL: [id number] 01/01/2018 [facility] Fib wo contrast MRI MRI RIGHT TIBIA-FIBULA WITHOUT CONTRAST HISTORY: Right leg pain. Medial gastrocnemius tear. 40-year-old female reports right leg pain posteriorly for approximately one month, felt a pop while walking COMPARISON: None available. FINDINGS: There is mild feathery intramuscular edema/inflammatory signal in both the medial and lateral gastrocnemius muscles. The signal abnormality is most prominent at the distalmost aspect of the medial gastrocnemius along the gastrocnemius-soleus myotendinous complex. Trace fluid collects between the distal medial gastrocnemius and soleus. There is no soft tissue hematoma. No muscular or tendon tear is seen. No musculotendinous retraction is identified. Bone marrow signal is normal. No soft tissue mass is identified. IMPRESSION: 1. Grade 1 medial and lateral gastrocnemius myotendinous strain, slightly greater involving the medial gastrocnemius. 2. Trace fluid between the distal medial gastrocnemius and soleus muscle without soft tissue hematoma, tendon tear, or muscle tear. SL: [id number] 01/15/2016 [facility] Abdomen complete US EXAM: ABDOMINAL ULTRASOUND CLINICAL INDICATION: Right upper quadrant abdominal pain COMPARISON: September 03, 2014 DISCUSSION: Transverse and longitudinal images of the upper abdomen were obtained. Examination is somewhat limited by patient body habitus and large amount of overlying bowel gas. The liver demonstrates diffuse increased echogenicity compatible fatty infiltration. The liver is enlarged measuring 19.9 cm the midclavicular line.. The spleen is normal in echogenicity and size measuring 10.8 centimeters in length. No focal masses are seen in either the liver or spleen. The gallbladder has been removed. The sonographic Schafer's sign is negative. There is no intrahepatic biliary dilatation. The common bile duct is normal in caliber and measure 4 mm. Pancreas is obscured. The right kidney measures 10.4 centimeters in length and the left kidney measures 11.0 centimeters. There is normal renal cortical echogenicity and no hydronephrosis. The previously seen echogenic focus within the right kidney is not identified on today's study. An 8mm echogenic focus is seen within the superior pole of the right kidney. This is thought to be associated with a cyst on the prior study although a cystic component is not well visualized on today's exam. The visualized portions of the great vessels are normal. No free fluid is seen. IMPRESSION: 1. Hepatomegaly with increased echogenicity compatible with diffuse fatty infiltration and or other underlying liver disease. 2. Previously seen right renal echogenic focus is not identified on today's study. This may represent a passed stone versus limitations on today's exam. No hydronephrosis is seen 3. Echogenic focus in the superior pole of the left kidney was thought to be associated with a renal cyst on the previous study. Today, the cystic component is not well visualized. No hydronephrosis is seen. 4. Status post cholecystectomy Dictated by staff: Dr. Milton. 03/03/2015 [facility] Sacroiliac joints series DX EXAM: X-RAY SACROILIAC JOINTS 2 VIEWS DATE: 12/31/2014 COMPARISON EXAMS: Lumbar spine 3 views of 11/16/2003 CLINICAL INDICATION: Unspecified polyarthropathy. DATA: None TECHNIQUE: AP and oblique views of the sacroiliac joints DISCUSSION: No fractures, osseous malalignment, or osseous destructive lesions are seen. The bilateral sacroiliac joint spaces are well-maintained with no ankylosis, diastases, erosive changes, or other osseous pathology. Surgical clips are again demonstrated within the pelvis. IMPRESSION: No abnormalities of the sacroiliac joints are demonstrated. 12/31/2014 [facility] Knee 3 Views Bilateral DX EXAM: X-RAY BILATERAL KNEES 3 VIEWS DATE: 12/31/2014 COMPARISON EXAMS: Right knee series of 11/15/2013 CLINICAL INDICATION: Unspecified polyarthropathy DATA: None TECHNIQUE: AP, lateral, and patellar sunrise views. DISCUSSION: No fractures, osseous malalignment, or osseous destructive lesions are seen. No periarticular erosive changes are seen. Bilateral knee joint spaces are well-maintained with no knee joint effusions or soft tissue abnormalities. IMPRESSION: No abnormalities of the bilateral knees are seen. A small right knee joint effusion has resolved. 12/31/2014 [facility] Foot 3 views bilateral DX EXAM: X-RAY BILATERAL FEET 3 VIEWS DATE: 12/31/2014 COMPARISON EXAMS: None. CLINICAL INDICATION: Unspecified polyarthropathy. DATA: None TECHNIQUE: AP, lateral, and oblique views of the bilateral feet DISCUSSION: There is mild narrowing of multiple interphalangeal joints of both toes. No associated osseous erosive changes are seen. There is mild medial subluxation of the proximal interphalangeal joint of the right fifth digit with some osseous deformity of the fused middle and distal phalanx, all likely posttraumatic in nature. No acute fractures are seen. Bilateral plantar calcaneal spurs and Achilles tendon insertion site enthesophytes are demonstrated. Mineralization is normal in appearance. No regional soft tissue pathology is seen. IMPRESSION: 1. Nonspecific narrowing of multiple interphalangeal joints of the toes, likely from mild osteoarthritis. 2. Bilateral plantar calcaneal spurs and Achilles tendon insertion site enthesophytes. 3. Deformity of the right fifth toe at the proximal interphalangeal joint, as described above, likely from prior trauma. 12/31/2014 [facility] Spine cervical 2 or 3 view DX EXAM: X-RAY CERVICAL SPINE 3 VIEWS DATE: 12/31/2014 COMPARISON EXAMS: None. CLINICAL INDICATION: Unspecified polyarthropathy DATA: None TECHNIQUE: AP, lateral, and open-mouth odontoid views DISCUSSION: C1 through the top of T1 are adequate visualized on the lateral view. No fractures, osseous malalignment, or osseous destructive lesions are seen. Vertebral body heights and intervertebral disc space heights are well- maintained. Trace anterior spondylosis is present at C4-C5 and at C5-C6. No osseous spinal stenosis or paravertebral soft tissue abnormalities are noted. No abnormalities of the atlantoaxial articulation are seen with portions of this articulation and odontoid process obscured by overlying osseous and soft tissue structures. Hair artifact is seen on the AP and odontoid views. IMPRESSION: 1. Mild anterior spondylosis at C4-C5 and at C5-C6. No associated disc space narrowing is seen. 2. No other abnormalities of the cervical spine are seen. 12/31/2014 [facility] Abdomen complete US EXAM: Abdomen ultrasound. INDICATION: Chronic nonalcoholic liver disease. TECHNIQUE: Grayscale and Doppler sonogram of the abdomen. COMPARISON: None. FINDINGS: Pancreas: Visualized portion is unremarkable. Aorta: Visualized portion is unremarkable. IVC: Visualized portion is unremarkable. Liver: Echotexture: Echogenic and mildly heterogeneous. Length: 19.7 cm. Main portal vein: Measures 1.6 cm. Normal directional flow. Gallbladder: Not identified, presumably surgically absent. Common bile duct: Measures 0.4 cm. Right kidney: Length 12.3 cm. No hydronephrosis. Lower pole 1 cm echogenic focus is likely a nonobstructing calculus. Left kidney: Length 11.7 cm. No hydronephrosis. Upper pole 1.8 cm cyst with dependent echogenicity which may represent layering milk of calcium. Spleen: Measures 10.4 cm. No splenomegaly. IMPRESSION: 1. Echogenic and mildly heterogeneous liver consistent with fatty infiltration or other chronic hepatocellular disease. 2. Nonvisualization of the gallbladder. Correlate with surgical history. 3. Right renal nonobstructing calculus. 4. Left renal cyst with probable layering milk of calcium. Consider followup. 09[facility]03[facility] K[facility] 3 views No fracture is identified. No radiopaque foreign body is identified. Small volume suprapatellar bursal effusion is present. Impression: 1. No acute osseous abnormality. [facility] [place] Spine lumbar 2 or 3 views No acute osseous injury is identified. Minimal levocurvature of the lumbar spine is present. There are 5 lumbar type vertebra. Moderate L3-L4 to L5-S1 facet osteoarthritis is present. Minimal anterior osteophytes seen at several lumbar spine levels. No vertebral compression fracture is seen. Right pelvic presumed surgical clip is noted. IMPRESSION: 1. Mild to moderate degenerative changes as above. [facility] [place] [facility] Notes No Data Provided for This Section Discharge Summaries No Data Provided for This Section History and Physicals No Data Provided for This Section Vital Signs Vital Sign Value Date Comments Source Heart Rate 103 05/31/2017 [facility] Systolic (mm Hg) 132 05/31/2017 [facility] Diastolic (mm Hg) 84 05/31/2017 [facility] Heart Rate 100 05/31/2017 [facility] Temperature Oral (F) 98.4 F 05/31/2017 [facility] Height 167.64 cm 05/31/2017 [facility] Respitory Rate 14 05/31/2017 [facility] BMI Calculated 45.77 05/31/2017 [facility] Weight 128.636 05/31/2017 [facility] Systolic (mm Hg) 132 05/31/2017 [facility] Diastolic (mm Hg) 84 05/31/2017 [facility] Temperature Oral (F) 98.6 F 04/16/2014 [facility] Heart Rate 81 04/16/2014 [facility] Respitory Rate 16 04/16/2014 [facility] Diastolic (mm Hg) 78 04/16/2014 [facility] Systolic (mm Hg) 126 04/16/2014 [facility] Respitory Rate 16 04/16/2014 [facility] Heart Rate 76 04/16/2014 [facility] Temperature Oral (F) 98.0 F 04/16/2014 [facility] Systolic (mm Hg) 116 04/16/2014 [facility] Diastolic (mm Hg) 72 04/16/2014 [facility] Heart Rate 84 04/16/2014 [facility] Respitory Rate 16 04/16/2014 [facility] Temperature Oral (F) 97.7 F 04/16/2014 [facility] Diastolic (mm Hg) 66 04/16/2014 [facility] Systolic (mm Hg) 100 04/16/2014 [facility] Height 167.64 cm 04/10/2014 [facility] BMI Calculated 40.27 04/10/2014 [facility] Weight 113.182 04/10/2014 [facility] Encounters Location Location Details Encounter Type Encounter Number Reason For Visit Attending Provider ADM Date DC Date Status Source [facility] [place] [facility] [id number] Roel Parker 11/15/2013 11/16/2013 [facility] Outpatient [id number] Rebecca De Dios 03/05/2014 03/06/2014 [facility] OBS Observation Patient [id number] Dennissinancarly Va 04/15/2014 04/16/2014 [facility] [place] [facility] [id number] JASE HUNTER 09/03/2014 09/04/2014 [facility] [place] [facility] [id number] Rosalie Mcpherson 12/31/2014 01/01/2015 [facility] [place] [facility] [id number] Luis Schafer 03/03/2015 03/04/2015 [facility] Outpatient [id number] RL LEONE 11/09/2015 [facility] Outpatient [id number] Job Ryder 01/15/2016 01/16/2016 [facility] Outpatient [id number] RL LEONE 02/03/2016 [facility] [id number] LINH DHALIWAL 05/31/2017 Active [facility] Outpatient [id number] Caleb Hamilton 05/31/2017 06/01/2017 Medical [facility] Phone Message [id number] 06/02/2017 06/04/2017 Medical [facility] Outpatient [id number] Rebecca De Dios 01/01/2018 01/02/2018 [facility] Procedures Procedure Code Date Perfomer Comments Source Microscopic examination of cervical Papanicolaou smear<sup>1</sup> [id number] 03/05/2015 negative [facility] Partial hysterectomy [id number] 04/05/2014 [facility] Colonoscopy<sup>2</sup> [id number] 03/05/2014 negative [facility] Arm repair<sup>3</sup> [id number] unable to full extend due to tension bands [facility] Cholecystectomy [id number] [facility] [place], [facility] [place] Foot joint operations [id number] [facility] [place], [facility] [place] Lumpectomy of breast [id number] [facility] [place] [place] Mammogram<sup>4</sup> [id number] negative [facility] Tonsillectomy [id number] [facility] [place],[facility], [facility] [place] Arm repair<sup>1</sup> [id number] unable to full extend due to tension bands [facility] [place],[facility], [facility] [place] Assessment and Plan No Data Provided for This Section Plan of Care No Data Provided for This Section Social History Social History Date Source Social History TypeResponse Substance Abuse Use: None. Exercise 1 Employment/School Status: Employed. Work/School description: [employer]. Alcohol Never Smoking Status Never smoker; Exposure to Tobacco Smoke None; Cigarette Smoking Last 365 Days No; Reg Smoking Cessation Counseling No entered on: 05/31/17 1not currently 04/10/2014 [facility] Social History TypeResponse Substance Abuse Use: None. Exercise 1 Employment/School Status: Employed. Work/School description: [employer]. Alcohol Never Smoking Status Never smoker; Exposure to Tobacco Smoke None; Cigarette Smoking Last 365 Days No; Reg Smoking Cessation Counseling No 1not currently 04/10/2014 [facility] Social History TypeResponse Substance Abuse Use: None. Alcohol Never Smoking Status Never smoker; Exposure to Tobacco Smoke None; Cigarette Smoking Last 365 Days No; Reg Smoking Cessation Counseling No 04/10/2014 [facility] Social History TypeResponse Substance Abuse Use: None. Alcohol Never Smoking Status Never smoker; Exposure to Tobacco Smoke None; Cigarette Smoking Last 365 Days No; Reg Smoking Cessation Counseling No 04/10/2014 [facility] Family History No Data Provided for This Section Advance Directives No Data Provided for This Section Functional Status No Data Provided for This Section
--- OUTSIDE RECORDS SUMMARY | 2019-01-23 21:22 | XMS REPORT | Summary of Care ---
Author Author [facility] Organization [facility] Address Unknown Phone Unavailable Encounter HQ Alex(FIN) [id number] Date(s): 05/31/17 - 05/31/17 [facility] [address], [address] [place], [place] [address]- [phone] Discharge Disposition: Home or Self Care Attending Physician: Caleb Hamilton MD Vital Signs Most recent to 1 2 oldest [Reference Range]: Height 167.64 cm (05/31/17 12:57 PM) Temperature Oral 98.4 DegF [96.4-99.1 DegF] (05/31/17 12:57 PM) Blood Pressure 132/84 mmHg 132/84 mmHg [90-140/60-90 mmHg] (05/31/17 1:17 PM) (05/31/17 12:57 PM) Respiratory Rate 14 BRMIN [14-20 BRMIN] (05/31/17 12:57 PM) Peripheral Pulse 103 bpm 100 bpm Rate [60-100 bpm] *HI* (05/31/17 12:57 PM) (05/31/17 1:17 PM) Weight 128.636 kg (05/31/17 12:57 PM) Body Mass Index 45.77 m2 (05/31/17 12:57 PM) Problem List Condition Effective Dates Status Health [...] Active 4 [id number] Active [facility] 09[facility] Originally documented as TYLENOL. 2Data migrated from [employer] on 09/30/14. Originally documented as BACTRIM. 3Data migrated from [employer] on 09/30/14. Originally documented as ADVIL COLD SINUS. 4Data migrated from [employer] on 09/30/14. Originally documented as VICODIN. 5Data migrated from [employer] on 09/30/14. Originally documented as ROBITUSIN. Medications amoxicillin 500 mg oral tablet 500 mg=1 tab, PO, BID, X 10 day, # 20 tab, 0 Refill(s), Pharmacy: [facility] [id number] Start Date: 06/02/17 Stop Date: 06/12/17 Status: Ordered benzonatate 100 mg oral capsule 100 mg=1 cap, PO, TID, do not crush or chew, X 10 day, # 30 cap, 0 Refill(s), Ph armacy: [facility] [id number] Start Date: 05/31/17 Stop Date: 06/10/17 Status: Ordered fluticasone nasal 0.05 mg/inh spray 1 spray, NASAL, Daily, # 1 ea, 2 Refill(s), [id number] Start Date: 05/31/17 Stop Date: 06/01/17 Status: Completed fluticasone nasal 0.05 mg/inh spray See Instructions, # 48 mL, Refill(s) 2, SHAKE LIQUID AND USE 1 SPRAY IN EACH NOS TRIL DAILY, Pharmacy: [facility] [id number] Start Date: 06/01/17 Status: Ordered ProAir HFA 90 mcg/inh inhalation aerosol with adapter 1 puff, INHALER, Q4H, PRN for wheezing, # 8.5 gm, 0 Refill(s), Pharmacy: [facility] [id number] Start Date: 05/31/17 Status: Ordered Results No data available for this section [...]
--- OUTSIDE RECORDS SUMMARY | 2019-01-23 21:23 | XMS REPORT | Summary of Care ---
Author Author [facility] Organization [facility] Address Unknown Phone Unavailable Encounter HQ Alex(MARIAN) [id number] Date(s): 01/01/18 - 01/01/18 [facility] [address] [place] [address]- Encounter Diagnosis Unspecified ovarian cyst, left side (Final) - 01/05/18 Acquired absence of both cervix and uterus (Final) - Discharge Disposition: Home or Self Care Attending [...]
[2019-01-23] MEDS ORDERED: DONNATAL/LIDOCAINE/MAALOX 30 ML SUSP PO ONE (21:45)
[2019-01-23] MEDS ORDERED: LIDOCAINE VISC 2% SOLN 15 ML UDC ONE (22:06)
[2019-01-23] MEDS ORDERED: BELLADONNA ALK/PHENOBARBITAL 5 ML UDC ONE (22:06)
[2019-01-23] MEDS ORDERED: BELLADONNA ALK/PHENOBARBITAL 5 ML UDC PO ONE (22:15)
[2019-01-23] MEDS ORDERED: MAGNESIUM/ALUMINUM/SIMETHICONE 30 ML UDC PO ONE (22:15)
[2019-01-23] MEDS ORDERED: LIDOCAINE VISC 2% SOLN 15 ML UDC PO ONE (22:15)
--- NOTE | 2019-01-23 23:07 | Diagnostic Imaging Report ---
EXAM: CT Abdomen and Pelvis WITHOUT contrast INDICATION: Abdominal pain epigastric pain COMPARISON: None. TECHNIQUE: Abdomen and pelvis were scanned utilizing a multidetector helical scanner from the lung base to the pubic symphysis without administration of IV contrast. Absence of intravenous contrast decreases sensitivity for detection of focal lesions and vascular pathology. Coronal and sagittal reformations were obtained. Routine protocol was performed. IV CONTRAST: None ORAL CONTRAST: None COMPLICATIONS: None RADIATION DOSE: Total DLP: 799 mGy*cm Estimated effective dose: (DLP x 0.015 x size factor) mSv CTDIvol has been reviewed. It is below the limits set by the Radiation Protocol Committee (RPC). Dose modulation, iterative reconstruction, and/or weight based adjustment of the mA/kV was utilized to reduce the radiation dose to as low as reasonably achievable. FINDINGS: LINES and TUBES: None. LOWER THORAX: Unremarkable HEPATOBILIARY: Diffuse decreased hepatic attenuation. Mild hepatic enlargement. No focal hepatic lesions. No biliary ductal dilation. GALLBLADDER: There are cholecystectomy clips. SPLEEN: No splenomegaly. PANCREAS: Mild peripancreatic fat stranding at the uncinate process. No Focal masses or ductal dilatation. ADRENALS: No adrenal nodules KIDNEYS/URETERS: No hydronephrosis. No cystic or solid mass lesions. Punctate nonobstructive calculus in a left renal interpolar calyx seen on coronal series. GI TRACT: No abnormal distention, wall thickening, or evidence of bowel obstruction. Appendix is normal. PELVIC ORGANS/BLADDER: Hysterectomy. No adnexal masses.. LYMPH NODES: No lymphadenopathy. VESSELS: Unremarkable. PERITONEUM / RETROPERITONEUM: No free air or fluid. BONES: Unremarkable. SOFT TISSUES: Unremarkable. IMPRESSION: 1. Findings suspicious for mild acute edematous pancreatitis at the pancreatic uncinate process. No fluid collections. Correlate with laboratory values. 2. Punctate nonobstructive left renal nephrolithiasis. 3. Hepatomegaly with hepatic steatosis. Signed by: Bennett Michael DO on 01/23/2019 11:04 PM
[2019-01-23] MEDS ORDERED: FAMOTIDINE 20 MG/2 ML VIAL IV ONE (23:32)
[2019-01-23] MEDS ORDERED: SODIUM CHLORIDE 0.9% 1000ML 1,000 ML ONE (23:33)
[2019-01-23] MEDS ORDERED: FAMOTIDINE 20 MG/2 ML VIAL IV STA (23:38)
[2019-01-23] MEDS ORDERED: MORPHINE SULFATE 2 MG/ML SYR 1ML IV PRN (23:45)
[2019-01-23] MEDS ORDERED: ONDANSETRON HCL INJ 2MG/ML 2ML 2 MG/ML VIAL IV PRN (23:45)
[2019-01-23] MEDS ORDERED: SODIUM CHLORIDE 0.9% 1000ML 1,000 ML IV SCH (23:45)
--- NOTE | 2019-01-23 23:52 | NUR ---
[facility] NOTIFIED ETA 30 MINUTES
--- OUTSIDE RECORDS SUMMARY | 2019-01-23 23:58 | XMS REPORT | Continuity of Care Document ---
Author Author [employer] Organization [employer] Address Unknown Phone Unavailable Care Team Providers Care Service Administrator Name Role Phone [employer] Unavailable Unavailable Problems Problem Status Onset Date Classification Date Reported Comments Source Unspecified ovarian cyst, left side 01/06/2018 07/21/2018 [facility] R10.2 Active 12/25/2017 [facility] DX: M79.661=PAIN IN RIGHT LOWER LEG/S86. Active 01/11/2016 [facility] 789.01 - ABDMNAL PAIN RT Active 03/03/2015 [facility] 625.3/626.2/218.9 Active 03/28/2014 [facility] UNK Active 03/28/2014 [facility] 626.2-ABNORMAL MENSTRUAL PERIODS Active 03/03/2014 [facility] 724.5 - BACKACHE NOS Active 11/19/2013 [facility] Anxiety (finding) Resolved Problem 07/21/2018 [facility] Asthma (disorder) Active Problem 07/21/2018 [facility] Depressive disorder (disorder) Resolved Problem 07/21/2018 [facility] Gastroesophageal reflux disease (disorder) Active Problem 07/21/2018 [facility] [place] History of - liver disease (context-dependent category) Active Problem 07/21/2018 [facility] Hypertensive disorder, systemic arterial (disorder) Active Problem 07/21/2018 [facility] [place] Hypertriglyceridemia (disorder) Active Problem 07/21/2018 [facility] Morbid obesity (disorder) Active Problem 07/21/2018 [facility] Final: Abdominal Pain, Right Upper Quadrant 03/06/2015 [facility] Mahajan Final: HEPATOMEGALY 03/06/2015 [facility] [place] Final: Unspecified Disorder of Liver 03/06/2015 [facility] Mahajan Backache (finding) Active Problem 01/18[facility]2016 [facility] Dysmenorrhea (disorder) Active Problem 01/18/2016 [facility] Wu,[facility] Menorrhagia (finding) Active Problem 01/18/2016 [facility] Wu,[facility] Uterine leiomyoma (disorder) Active Problem 01/18/2016 [facility] Wu,[facility] Allergic disposition (disorder) Resolved Problem 01/18/2016 multiple [facility] Acquired absence of both cervix and uterus 07/21/2018 [facility] Medications Medication Details Route Status Patient Instructions Ordering Provider Order Date Source amoxicillin 500 mg oral tablet 500 mg=1 tab, PO, BID, X 10 day, # 20 tab, 0 Refill(s), Pharmacy: [email or web address] [id number] Active 06/02/2017 [facility] Fluticasone propionate 0.05 MG/ACTUAT Metered Dose Nasal [place] See Instructions, # 48 mL, Refill(s) 2, SHAKE LIQUID AND USE 1 SPRAY IN EACH NOSTRIL DAILY, Pharmacy: [email or web address] [id number] Active 06/01/2017 [facility] Fluticasone propionate 0.05 MG/ACTUAT Metered Dose Nasal [place] 1 spray, NASAL, Daily, # 1 ea, 2 Refill(s), Pharmacy: [email or web address] [id number] No Longer Active 05/31/2017 [facility] benzonatate 100 mg oral capsule 100 mg=1 cap, PO, TID, do not crush or chew, X 10 day, # 30 cap, 0 Refill(s), Pharmacy: [email or web address] [id number] Active 05/31/2017 [facility] 200 ACTUAT Albuterol 0.09 MG/ACTUAT Metered Dose Inhaler [ProAir HFA] 1 puff, INHALER, Q4H, PRN for wheezing, # 8.5 gm, 0 Refill(s), [email or web address] [id number] Active 05/31/2017 [facility] Acetaminophen 300 MG / Codeine Phosphate 30 MG Oral Tablet [Tylenol with Codeine #3] 1 tab, PO, Q6H, for pain, # 30 tab, 0 Refill(s) Active 04/16/2014 [facility] Acetaminophen 300 MG / Codeine Phosphate 30 MG Oral Tablet [Tylenol with Codeine #3] 2 tab, Route: PO, Drug Form: TAB, Dosing Weight 113.182, kg, Q6H, PRN Pain Score 4-6, Start date: 04/16/14 9:13:00, Duration: 30 day, Stop date: 05/16/14 9:12:00Notes: Do not exceed 4gm/day of acetaminophen. (Same as: Tylenol with Codeine # 3) Inactive 04/16/2014 [facility] Acetaminophen 300 MG / Codeine Phosphate 30 MG Oral Tablet [Tylenol with Codeine #3] 1 tab, Route: PO, Drug Form: TAB, Dosing Weight 113.182, kg, Q6H, PRN Pain Score 1-3, Start date: 04/16/14 9:11:00, Duration: 30 day, Stop date: 05/16/14 9:10:00Notes: Do not exceed 4gm/day of acetaminophen. (Same as: Tylenol with Codeine # 3) Inactive 04/16/2014 [facility] cefOXitin (SCIP) + Sodium Chloride 0.9% IV 100 mL 1 gm, Route: IVPB, Q6H, Dosing Weight 113.182, kg, Start date: 04/15/14 18:00:00, Duration: 1 doses or times, Stop date: 04/15/14 18:00:00Notes: (Same As: Mefoxin) Inactive 04/16/2014 [facility] Cefoxitin 20 MG/ML Injectable Solution 1 gm, Route: IVPB, Q6H, Dosing Weight 113.182, kg, Start date: 04/15/14 12:00:00, Duration: 1 doses or times, Stop date: 04/15/14 12:00:00Notes: (Same As: Mefoxin) Inactive 04/15/2014 [facility] Oxycodone 5 mg, Route: PO, Drug form: TAB, Q4H, Dosing Weight 113.182, kg, PRN Pain Score 4-6, Start date: 04/15/14 11:14:00, Duration: 30 day, Stop date: 05/15/14 11:13:00 Inactive 04/15/2014 [facility] Promethazine 6.25 mg, Route: IVPB, ONCE, Dosing Weight 113.182, kg, PRN Nausea & Vomiting, Start date: 04/15/14 11:14:00 Inactive 04/15/2014 [facility] Ondansetron 4 mg, Route: IVP, ONCE, Dosing Weight 113.182, kg, PRN Nausea & Vomiting, Start date: 04/15/14 11:14:00 Inactive 04/15/2014 [facility] Fentanyl 50 microgram, Route: IVP, Q5Min, Dosing Weight 113.182, kg, PRN Pain Score 7-10, Start date: 04/15/14 11:14:00, Duration: 2 doses or times, Stop date: Limited # of times Inactive 04/15/2014 [facility] Morphine 4 mg, Route: IVP, Q5Min, Dosing Weight 113.182, kg, PRN Pain Score 7-10, Start date: 04/15/14 11:14:00, Duration: 3 doses or times, Stop date: Limited # of times Inactive 04/15/2014 [facility] Meperidine 12.5 mg, Route: IVP, Q30Min, Dosing Weight 113.182, kg, PRN Other -See Comment, For shivering, Start date: 04/15/14 11:14:00, Duration: 2 doses or times, Stop date: Limited # of times Inactive 04/15/2014 [facility] Oxycodone Hydrochloride 1 MG/ML Oral Solution 5 mg, Route: NG, Drug form: LIQ, Q4H, Dosing Weight 113.182, kg, PRN Pain Score 4-6, Start date: 04/15/14 11:14:00, Duration: 30 day, Stop date: 05/15/14 11:13:00 Inactive 04/15/2014 [facility] Diphenhydramine 12.5 mg, Route: IVP, Drug form: INJ, Q6H, Dosing Weight 113.182, kg, PRN Itching, Start date: 04/15/14 11:14:00, Duration: 30 day, Stop date: 05/15/14 11:13:00 Inactive 04/15/2014 [facility] Naloxone 0.04 mg, Route: IVP, Q2MIN, Dosing Weight 113.182, kg, PRN Narcotic Reversal, Start date: 04/15/14 11:14:00, Duration: 8 doses or times, Stop date: Limited # of times Inactive 04/15/2014 [facility] Flumazenil 0.2 mg, Route: IVP, PRN, Dosing Weight 113.182, kg, PRN Benzodiazepine Reversal, Initial dose, Start date: 04/15/14 11:14:00, Duration: 30 day, Stop date: 05/15/14 11:13:00 Inactive 04/15/2014 [facility] Hydromorphone 0.5 mg, Route: IVP, Q5Min, Dosing Weight 113.182, kg, PRN Pain Score 7-10, Start date: 04/15/14 11:14:00, Duration: 4 doses or times, Stop date: Limited # of times Inactive 04/15/2014 [facility] Calcium Chloride 0.0014 MEQ/ML / Potassium Chloride 0.004 MEQ/ML / Sodium Chloride 0.103 MEQ/ML / Sodium Lactate 0.028 MEQ/ML Injectable Solution 1,000 mL, Rate: 125 ml/hr, Infuse over: 8 hr, Route: IV, Dosing Weight 113.182 kg, Total Volume: 1,000, Start date: 04/15/14 11:14:00, Duration: 30 day, Stop date: 05/15/14 11:13:00 Inactive 04/15/2014 [facility] Demerol HCl 50 mg, 1 mL, Route: IV, Drug form: INJ, Q6H, Dosing Weight 113.182, kg, PRN Pain Score 7-10, Start date: 04/15/14 11:08:00, Duration: 3 doses or times, Stop date: Limited # of timesNotes: (Same as: Emiliano gruber) "Use Precaution in Elderly, Seizure disorders, and Renal impairment" No Longer Active 04/15/2014 [facility] Magnesium Hydroxide 30 ml, Route: PO, Drug Form: SUSP, Dosing Weight 113.182, kg, Daily, PRN Constipation, Start date: 04/15/14 10:59:00, Duration: 30 day, Stop date: 05/15/14 10:58:00Notes: (Same as: Milk of Magnesia, MOM) No Longer Active 04/15/2014 [facility] Aluminum Hydroxide 40 MG/ML / Magnesium Hydroxide 40 MG/ML / Simethicone 4 MG/ML Oral Suspension 30 mL, Route: PO, Drug Form: SUSP, Dosing Weight 113.182, kg, Q4H, PRN Indigestion, Start date: 04/15/14 10:59:00, Duration: 30 day, Stop date: 05/15/14 10:58:00Notes: (aluminum hydroxide- magnesium hyd-simethicone [phone]/5ml 30 ml ud MELODY) No Longer Active 04/15/2014 [facility] Calcium Chloride 0.0014 MEQ/ML / Potassium Chloride 0.004 MEQ/ML / Sodium Chloride 0.103 MEQ/ML / Sodium Lactate 0.028 MEQ/ML Injectable Solution 1,000 mL, Rate: 125 ml/hr, Infuse over: 8 hr, Route: IV, Dosing Weight 113.182 kg, Total Volume: 1,000, Start date: 04/15/14 10:59:00, Duration: 30 day, Stop date: 05/15/14 10:58:00 No Longer Active 04/15/2014 [facility] Promethazine 12.5 mg, 0.5 mL, Route: IM, Drug form: INJ, Q4H, Dosing Weight 113.182, kg, PRN Nausea & Vomiting, Start date: 04/15/14 10:59:00, Duration: 30 day, Stop date: 05/15/14 10:58:00Notes: Do not give IV p ush. (Same as: Phenergan) No Longer Active 04/15/2014 [facility] Bisacodyl 10 mg, 1 supp, Route: AL, Drug form: SUPP, Q12H, Dosing Weight 113.182, kg, PRN Constipation, Start date: 04/15/14 10:59:00, Duration: 30 day, Stop date: 05/15/14 10:58:00Notes: (Same As: Dulcolax, Bisco- Lax) No Longer Active 04/15/2014 [facility] Simethicone 160 mg, 2 tab, Route: PO, Drug form: CHEWTAB, Q2H, Dosing Weight 113.182, kg, PRN Gas, Start date: 04/15/14 10:59:00, Duration: 30 day, Stop date: 05/15/14 10:58:00Notes: (Same as: Mylicon) No Longer Active 04/15/2014 [facility] Ondansetron 4 mg, 2 mL, Route: IVP, Drug form: INJ, Q6H, Dosing Weight 113.182, kg, PRN Nausea & Vomiting, Start date: 04/15/14 10:59:00, Duration: 30 day, Stop date: 05/15/14 10:58:00Notes: (Same as: Zofran) No Longer Active 04/15/2014 [facility] Calcium Chloride 0.0014 MEQ/ML / Potassium Chloride 0.004 MEQ/ML / Sodium Chloride 0.103 MEQ/ML / Sodium Lactate 0.028 MEQ/ML Injectable Solution 1,000 mL, Rate: 25 ml/hr, Infuse over: 40 hr, Route: IV, Dosing Weight 113.182 kg, Total Volume: 1,000, Start date: 04/15/14 7:41:00, Duration: 30 day, Stop date: 05/15/14 7:40:00 Inactive 04/15/2014 [facility] meloxicam 15 mg oral tablet 15 mg=1 tab, PO, Daily, 0 Refill(s) Active 04/10/2014 [facility] cyclobenzaprine 5 mg, PO, as needed for muscle spasm, 0 Refill(s) Active 04/10/2014 [facility] Esomeprazole 40 MG Enteric Coated Capsule [Nexium] 40 mg=1 cap, PO, Daily, 0 Refill(s) Active 04/10/2014 [facility] metoprolol 50 mg oral tablet, extended release 50 mg=1 tab, PO, Daily, 0 Refill(s) Active 04/10/2014 [facility] Cefoxitin 2 gm, Route: IVPB, ONCALL, Dosing Weight 113.182, kg, Start date: 04/10/14 12:00:00, Duration: 6 day, Stop date: 04/16/14 11:59:00Notes: (Same As: Mefoxin) No Longer Active 04/10/2014 [facility] Allergies, Adverse Reactions, Alerts Substance Category Reaction Severity Reaction type Status Date Reported Comments Source acetaminophen<sup>1</sup> Assertion Drug allergy Active Data migrated from [employer] on 09/30/14. Originally documented as TYLENOL. [facility] sulfamethoxazole-trimethoprim<sup>2</sup> Assertion Drug allergy Active Data migrated from [employer] on 09/30/14. Originally documented as BACTRIM. [facility] ibuprofen-pseudoephedrine<sup>3</sup> Assertion Drug allergy Active Data migrated from [employer] on 09/30/14. Originally documented as ADVIL COLD SINUS. [facility] Advil Cold & Sinus Assertion Drug allergy Active [facility] Bactrim Assertion Drug allergy Active [facility] Vicodin Assertion Drug allergy Active [facility] acetaminophen-HYDROcodone<sup>4</sup> Assertion Drug allergy Active Data migrated from [employer] on 09/30/14. Originally documented as VICODIN. [facility] guaiFENesin<sup>5</sup> Assertion Drug allergy Active Data migrated from [employer] on 09/30/14. Originally documented as ROBITUSIN. [facility] acetaminophen-HYDROcodone<sup>2</sup> Assertion Drug allergy Active Data migrated from [employer] on 09/30/14. Originally documented as VICODIN. [facility] guaiFENesin<sup>3</sup> Assertion Drug allergy Active Data migrated from [employer] on 09/30/14. Originally documented as ROBITUSIN. [facility] ibuprofen-pseudoephedrine<sup>4</sup> Assertion Drug allergy Active Data migrated from [employer] on 09/30/14. Originally documented as ADVIL COLD SINUS. [facility] sulfamethoxazole-trimethoprim<sup>5</sup> Assertion Drug allergy Active Data migrated from [employer] on 09/30/14. Originally documented as BACTRIM. [facility] Immunizations Immunization Date Given Site Status Last Updated Comments Source Hx influenza vaccine-unspecified 05/05/2017 completed [facility] Results Order Name Results Value Reference Range Date Interpretation Comments Source HEMATOLOGY Lymphocytes 19.2 20.0 - 40.0 04/16/2014 [facility] HEMATOLOGY Segs 73.3 45.0 - 75.0 04/16/2014 [facility] HEMATOLOGY Monocytes 5.7 2.0 - 12.0 04/16/2014 [facility] HEMATOLOGY Eosinophils 1.3 0.0 - 4.0 04/16/2014 [facility] HEMATOLOGY Basophils 0.5 0.0 - 1.0 04/16/2014 [facility] HEMATOLOGY Lymphocytes # 2.0 1.0 - 5.5 04/16/2014 [facility] HEMATOLOGY Segs-Bands # 7.5 1.5 - 8.1 04/16/2014 [facility] HEMATOLOGY Monocytes # 0.6 0.0 - 0.8 04/16/2014 [facility] HEMATOLOGY Eosinophils # 0.1 0.0 - 0.5 04/16/2014 [facility] RBC 4.25 4.20 - 5.40 04/16/2014 [facility] Hgb 12.3 12.0 - 16.0 04/16/2014 [facility] MCHC 33.3 32.0 - 36.0 04/16/2014 [facility] MCH 29.0 27.0 - 31.0 04/16/2014 [facility] MCV 87.3 80.0 - 98.0 04/16/2014 [facility] HEMATOLOGY MPV 7.8 7.4 - 10.4 04/16/2014 [facility] Hct 37.1 36.0 - 48.0 04/16/2014 [facility] Platelet 241 133 - 450 04/16/2014 [facility] RDW 13.6 11.5 - 14.5 04/16/2014 [facility] WBC 10.3 3.7 - 10.4 04/16/2014 [facility] URINE CHEM U Preg Negative (04/15/14 6:15 AM) Negative 04/15/2014 [facility] BLOOD BANK RESULTS ABO/Rh A POS 04/10/2014 [facility] BLOOD BANK RESULTS Antibody Scrn Negative (04/10/14 12:35 PM) 04/10/2014 [facility] CHEM PANEL Glucose Lvl 92 70 - 99 04/10/2014 <sup>1</sup>Interpretive Data: Adult reference range values reflect the clinical guidelines
of the [place] [employer]. [facility] Platelet 275 133 - 450 04/10/2014 [facility] MPV 8.2 7.4 - 10.4 04/10/2014 [facility] RDW 13.3 11.5 - 14.5 04/10/2014 [facility] WBC 10.6 3.7 - 10.4 04/10/2014 [facility] Hgb 14.9 12.0 - 16.0 04/10/2014 [facility] RBC 5.14 4.20 - 5.40 04/10/2014 [facility] MCV 87.2 80.0 - 98.0 04/10/2014 [facility] Hct 44.9 36.0 - 48.0 04/10/2014 [facility] MCHC 33.2 32.0 - 36.0 04/10/2014 [facility] MCH 29.0 27.0 - 31.0 04/10/2014 [facility] HEMATOLOGY Monocytes # 0.5 0.0 - 0.8 04/10/2014 [facility] HEMATOLOGY Eosinophils # 0.2 0.0 - 0.5 04/10/2014 [facility] HEMATOLOGY Basophils # 0.1 0.0 - 0.2 04/10/2014 [facility] HEMATOLOGY Segs 66.7 45.0 - 75.0 04/10/2014 [facility] Lymphocytes 25.8 20.0 - 40.0 04/10/2014 [facility] HEMATOLOGY Eosinophils 1.4 0.0 - 4.0 04/10/2014 [facility] Monocytes 5.0 2.0 - 12.0 04/10/2014 [facility] Basophils 1.1 0.0 - 1.0 04/10/2014 [facility] Lymphocytes # 2.7 1.0 - 5.5 04/10/2014 [facility] Segs-Bands # 7.1 1.5 - 8.1 04/10/2014 [facility] Treponemal Scr Non Reactive *NA* (04/10/14 12:35 PM) Non Reactive 04/10/2014 [facility] HIV 1/2 Ab Negative *NA* (04/10/14 12:35 PM) Negative 04/10/2014 [facility] Hep C Ab Negative *NA* (04/10/14 12:35 PM) 04/10/2014 [facility] Hep Bs Ag Negative *NA* (04/10/14 12:35 PM) Negative 04/10/2014 [facility] Pathology Reports No Data Provided for [...] in 6-12 weeks to document resolution. SL: [id number] 01/01/2018 [facility] Fib wo contrast MRI MRI RIGHT [...] hematoma, tendon tear, or muscle tear. SL: [id number] 01/15/2016 [facility] Abdomen complete US EXAM: ABDOMINAL ULTRASOUND [...] cholecystectomy Dictated by staff: Dr. Milton. 03/03/2015 [facility] Sacroiliac joints series DX EXAM: X-RAY [...] of the sacroiliac joints are demonstrated. 12/31/2014 [facility] Knee 3 Views Bilateral DX EXAM: [...] right knee joint effusion has resolved. 12/31/2014 [facility] Foot 3 views bilateral DX EXAM: [...] described above, likely from prior trauma. 12/31/2014 [facility] Spine cervical 2 or 3 view [...] of the cervical spine are seen. 12/31/2014 [facility] Abdomen complete US EXAM: Abdomen ultrasound. [...] layering milk of calcium. Consider followup. [facility] No fracture is identified. No radiopaque foreign body is identified. Small volume suprapatellar bursal effusion is present. Impression: 1. No acute osseous abnormality. 11/15/2013 [facility] [place] Spine lumbar 2 or 3 views No [...] to moderate degenerative changes as above. [facility]/15[facility] [place] Consultation Notes No Data Provided for This [...] [facility] Diastolic (mm Hg) 84 05/31/2017 [facility] Temperature Oral (F) 98.6 F 04/16/2014 [facility] Heart Rate 81 04/16/2014 [facility] Respitory Rate 16 04/16/2014 [facility] Diastolic (mm Hg) 78 04/16/2014 [facility] Systolic (mm Hg) 126 04/16/2014 [facility] Respitory Rate 16 04/16/2014 [facility] Heart Rate 76 04/16/2014 [facility] Temperature Oral (F) 98.0 F 04/16/2014 [facility] Systolic (mm Hg) 116 04/16/2014 [facility] Diastolic (mm Hg) 72 04/16/2014 [facility] Heart Rate 84 04/16/2014 [facility] Respitory Rate 16 04/16/2014 [facility] Temperature Oral (F) 97.7 F 04/16/2014 [facility] Diastolic (mm Hg) 66 04/16/2014 [facility] Systolic (mm Hg) 100 04/16/2014 [facility] Height 167.64 cm 04/10/2014 [facility] BMI Calculated 40.27 04/10/2014 [facility] Weight 113.182 04/10/2014 [facility] Encounters Location Location Details Encounter Type Encounter Number Reason For Visit Attending Provider ADM Date DC Date Status Source [facility] [place] [facility] Di[facility] Services [id number] Roel Parker 11/15/2013 11/16/2013 [facility] Outpatient [id number] Rebecca De Dios 03/05/2014 03/06/2014 [facility] OBS Observation Patient [id number] Dennissinancarly Va 04/15/2014 04/16/2014 [facility] [place] Out[facility] [id number] JASE HUNTER 09/03/2014 09/04/2014 [facility] - [place] Outpt Diag Services [id number] Rosalie Mcpherson 12/31/2014 01/01/2015 [facility] - [place] Outpt Diag Services [id number] Luis Schafer 03/03/2015 03/04/2015 [facility] Outpatient [id number] RL LEONE 11/09/2015 [facility] Outpatient [id number] Job Ryder 01/15/2016 01/16/2016 [facility] Outpatient [id number] RL LEONE 02/03/2016 Active [facility] Outpatient [id number] LINH DHALIWAL 05/31/2017 Active [facility] Outpatient [id number] Caleb Hamilton 05/31/2017 06/01/2017 Medical [facility] Phone Message [id number] 06/02/2017 06/04/2017 Medical [facility] Outpatient [id number] Rebecca De Dios 01/01/2018 01/02/2018 [facility] Procedures Procedure Code Date Perfomer Comments Source Microscopic examination of cervical Papanicolaou smear<sup>1</sup> [id number] 03/05/2015 negative [facility] Partial hysterectomy [id number] 04/05/2014 [facility] Colonoscopy<sup>2</sup> [id number] 03/05/2014 negative [facility] Arm repair<sup>3</sup> [id number] unable to full extend due to tension bands [facility] Cholecystectomy [id number] [facility] [place], [facility] [place] Foot joint operations [id number] [facility] [place],[facility], [facility] [place] Lumpectomy of breast [id number] [facility], [facility] [place],[facility], [facility] [place] Mammogram<sup>4</sup> [id number] negative [facility] Tonsillectomy [id number] [facility], [facility] [place],[facility], [facility] [place] Arm repair<sup>1</sup> [id number] unable to full extend due to tension bands [facility] [place],[facility], [facility] [place] Assessment and Plan No Data Provided for [...] No entered on: 05/31/17 1not currently 04/10/2014 [facility] Social History TypeResponse Substance Abuse Use: [...]
--- OUTSIDE RECORDS SUMMARY | 2019-01-23 23:59 | XMS REPORT ---
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 Allergies, Adverse Reactions, Alerts This patient has no known allergies or adverse reactions. Medications This patient has no known medications. Results Test Description Test Time Test Comments Text Results Atomic Results Result Comments CT ABD/PEL WO CONTRAST-HOPD 2019-01-23 22:42:00 [place] [address] Patient Name: VIDHI GREENE MR #: [id number] : 1975 Age/Sex: 43/F Req #: [id number] Adm Physician: Ordered by: BRITTANI SANDERSON MD Report #: [id number] Location: [facility] Room/Bed: Procedure: [id number] HOPD/CT ABD/PEL WO CONTRAST-HOPD Exam Date: 01/23/19 Exam Time: 8 REPORT STATUS: Signed EXAM: CT Abdomen and Pelvis WITHOUT contrast INDICATION: Abdominal pain epigastric pain COMPARISON: None. TECHNIQUE: Abdomen and pelvis were scanned utilizing a multidetector helical scanner from the lung base to the pubic symphysis without administration of IV contrast. Absence of intravenous contrast decreases sensitivity for detection of focal lesions and vascular pathology. Coronal and sagittal reformations were obtain ed. Routine protocol was performed. IV CONTRAST: None ORAL CONTRAST: None COMPLICATIONS: None RADIATION DOSE: Total DLP: 799 mGy*cm Estimated effective dose: (DLP x 0.015 x size factor) mSv CTDIvol has been reviewed. It is below the limits set by the Radiation Protocol Committee (RPC). Dose modulation, iterative reconstruction, and/or weight based adjustment of the mA/kV was utilized to reduce the radiation dose to as low as reasonably achievable. FINDINGS: LINES and TUBES: None. LOWER THORAX: Unremarkable HEPATOBILIARY: Diffuse decreased hepatic attenuation. Mild hepatic enlargement. No focal hepatic lesions. No biliary ductal dilation. GALLBLADDER: There are cholecystectomy clips. SPLEEN: No splenomegaly. PANCREAS: Mild peripancreatic fat stranding at the uncinate process. No Focal masses or ductal dilatation. ADRENALS: No adrenal nodules KIDNEYS/URETERS: No hydronephrosis. No cystic or solid mass lesions. Punctate nonobstructive calculus in a left renal interpolar calyx seen on coronal series. GI TRACT: No abnormal distention, wall thickening, or evidence of bowel obstruction. Appendix is normal. PELVIC ORGANS/BLADDER: Hysterectomy. No adnexal masses.. LYMPH NODES: No lymphadenopathy. VESSELS: Unremarkable. PERITONEUM / RETROPERITONEUM: No free air or fluid. BONES: Unremarkable. SOFT TISSUES: Unremarkable. IMPRESSION: 1. Findings suspicious for mild acute edematous pancreatitis at the pancreatic uncinate process. No fluid collections. Correlate with laboratory values. 2. Punctate nonobstructive left renal nephrolithiasis. 3. Hepatomegaly with hepatic steatosis. Signed by: Bennett Michael DO on 01/23/2019 11:04 PM Dictated By: BENNETT MICHAEL DO Transcribed By: ANDREW on 01/23/191 COPY TO: BRITTANI SANDERSON MD
[2019-01-24] VITALS (7 sets, daily range): BP systolic 107–140; BP diastolic 58–74
--- NOTE | 2019-01-24 00:38 | NUR ---
Pt arrived on the unit (from [facility] free-standing ER)being escorted by EMT on a stretcher bed. Patient is a new admit with diagnosis of Acute Pancreatitis. Patient alert and oriented x4. Ambulatory in room prn. On IVF (NS at 100ml/hr). at bedside. Patient denies pain at this time. Call combs within reach. Will monitor pt closely.
--- NOTE | 2019-01-24 00:45 | NUR ---
REPORT GIVEN TO [facility], PT STABLE AT TIME OF TRANSFER.
[2019-01-24] MEDS ORDERED: METFORMIN HCL500 M2 PO (02:04)
[2019-01-24] MEDS ORDERED: HYDROCHLOROTHIA25 MG PO (02:04)
[2019-01-24] MEDS ORDERED: MELOXICAM7.5 MG PO (02:04)
[2019-01-24] MEDS ORDERED: ALBUTEROL0.63 MG/3 INH (02:04)
--- NOTE | 2019-01-24 07:00 | NUR ---
Pt received resting in bed. Alert and oriented x4 with right hand IV receiving IV fluid as ordered. Oriented to staff and surroundings. Encouraged to press call combs if help needed. Call combs within reach. Will monitor
[2019-01-24 08:25] LABS: BASOPHILS # (AUTO) 0.1 (0.0-0.1); BASOPHILS % 0.6 % (0.0-1.0); EOSINOPHILS # (AUTO) 0.2 (0.0-0.4); EOSINOPHILS % 2.3 % (0.0-6.0); HEMATOCRIT 40.9 % (34.2-44.1); HEMOGLOBIN 13.9 g/dL (12.0-16.0); LYMPHOCYTES # (AUTO) 2.2 (1.0-3.2); LYMPHOCYTES % 24.2 % (18.0-39.1); MEAN CORPUSCULAR HEMOGLOBIN 29.2 pg (28-32); MEAN CORPUSCULAR VOLUME 85.9 fL (81-99); MONOCYTES # (AUTO) 0.6 (0.2-0.8); MONOCYTES % 6.1 % (4.4-11.3); NEUTROPHILS % 66.4 % (38.7-80.0); PLATELET COUNT 271 x10e3/uL (140-360); RED BLOOD COUNT 4.76 x10e6/uL (3.6-5.1); RED CELL DISTRIBUTION WIDTH 13.2 % (11.7-14.4)
[2019-01-24] MEDS: FAMOTIDINE 20 MG/2 ML VIAL IV SCH (08:28)
[2019-01-24] MEDS: SODIUM CHLORIDE 0.9% 1000ML 1,000 ML IV SCH ×2 (08:28→15:40)
--- NOTE | 2019-01-24 08:28 | NUR ---
Saline lock #20 inserted into left forearm per pt's request. All meds given as ordered. Call cobms within reach. Will monitor
[2019-01-24 08:36] LABS: ALANINE AMINOTRANSFERASE 12 IU/L (0-55); ALBUMIN 3.2 g/dL (3.5-5.0); ALBUMIN/GLOBULIN RATIO 1.1 (0.8-2.0); ALKALINE PHOSPHATASE 76 IU/L (40-150); ANION GAP 10.7 mmol/L (8-16); BLOOD UREA NITROGEN 10 mg/dL (7-26); BUN/CREATININE RATIO 16 (6-25); CALCIUM 8.6 mg/dL (8.4-10.2); CARBON DIOXIDE 26 mmol/L (22-29); CHLORIDE 102 mmol/L (98-107); CREATININE, SERUM 0.61 mg/dL (0.57-1.11); EST GLOMERULAR FILTRATION RATE > 60 ML/MIN (60-); GLUCOSE 127 mg/dL (74-118); POTASSIUM 3.7 mmol/L (3.5-5.1); SODIUM 135 mmol/L (136-145)
[2019-01-24] MEDS: METOPROLOL TARTRATE 50 MG TAB PO SCH (09:00)
[2019-01-24] MEDS: ACETAMINOPHEN 325 MG TAB PO PRN (09:24)
[2019-01-24 10:49] LABS: CHOL/HDL RATIO 4.5 (3.0-3.6)
--- NOTE | 2019-01-24 11:09 | History and Physical ---
CHIEF COMPLAINT: Abdominal pain. HISTORY OF PRESENT ILLNESS: This is a 43-year-old female, morbidly obese, history of type 2 diabetes, hypertension, who presented to the emergency department with complaints of abdominal pain epigastrically that radiated through her back. The patient reports that she noticed this pain on Monday of this week suddenly after she ate a meal. She noticed the pain continued to get progressively worse and described it more as a stabbing sensation that went through her back. Reports some nausea, some vomiting, and decreased oral intake. She never experienced any pain like this before. No reports of any chest pain or any palpitations. She does report that she has been diagnosed with diabetes about 6 months ago, but has not followed up with her PCP. She is not aware of her having elevated triglycerides in the past. No reports or any history of any pancreatitis before. The patient is seen and evaluated at bedside on the medical floor. She is currently doing well and stable. Vital signs stable when I evaluated her. She is currently on IV fluids and n.p.o. GI has been consulted. REVIEW OF SYSTEMS: Pertinent positives: Epigastric abdominal pain with radiation to her back. Nausea, vomiting, decreased oral intake. Pertinent negatives: Denies any chest pain, palpitation, dysuria, hematuria, frequency, urgency, lightheadedness, dizziness, cough, congestion, shortness of breath, fever, or any other complaints. The rest of 14-point review of systems have been reviewed with the patient and are negative. ALLERGIES: CODEINE, IBUPROFEN, PSEUDOEPHEDRINE, SULFA, METHIMAZOLE, BACTRIM, TRIMETHOPRIM. MICROBIOLOGY: None. IMAGING STUDIES: CT abdomen and pelvis shows findings suspicious for mild acute edematous pancreatitis and pancreatic uncinate process. No fluid collections. Nonobstructive left renal nephrolithiasis. Hepatomegaly with hepatic steatosis. LABORATORY DATA: Labs show white count 9, hemoglobin 13.9, hematocrit 40.19, platelets of 271. Chemistry; sodium 135, potassium 3.7, chloride 102, bicarb 26, anion gap of 10, BUN is 10, creatinine is 0.61, glucose 127, calcium 8.6, total bilirubin is 0.7, AST 12, ALT 12, alkaline phosphatase 76, albumin 3.2, lipase is 23. MEDICATIONS: At home, the patient takes albuterol as needed, hydrochlorothiazide 12.5 mg daily, meloxicam 7.5 mg p.o. b.i.d., metformin 500 mg daily, metoprolol 50 mg daily. PAST MEDICAL HISTORY: Hypertension, morbidly obese, and diabetes. PAST SURGICAL HISTORY: Reports none. FAMILY HISTORY: Hypertension and diabetes. SOCIAL HISTORY: No drugs. She is a social drinker. Does not smoke. Works. We talked about the vitals now. PHYSICAL EXAMINATION: GENERAL: Not in acute distress. Alert and oriented x3. Cooperative on examination. HEENT: Head; normocephalic and atraumatic. Eyes; pupils are equal, round, and reactive to light bilaterally. Extraocular Movements are intact bilaterally. Throat; no evidence of erythema or exudates in the posterior pharynx. Has poor dentition. NECK: Supple. Good range of motion. PULMONARY: Clear to auscultation bilaterally. No wheezing, no rales, no rhonchi, and no crackles appreciated. CARDIOVASCULAR: Positive S1 and S2. No murmurs, rubs, or gallops appreciated. GI: Abdomen is soft, nondistended to palpation. Bowel sounds present. She is tender to palpation in the epigastric region on exam, but no rebound, no guarding. MUSCULOSKELETAL: Strength is 5/5 throughout. No evidence of any muscle deficits on examination. No weakness appreciated. NEUROLOGIC: Cranial nerves II through XII grossly intact. No evidence of any neurological deficits on exam. SKIN: Intact. Warm to touch. Good cap refill. PSYCHIATRIC: Normal affect and mood. EXTREMITIES: No edema. Good range of motion throughout. IMPRESSION: 1. Acute pancreatitis with history of cholecystectomy. 2. Hypertension. 3. Type 2 diabetes. 4. Morbid obesity. PLAN: At this time, continue with IV fluids, pain control, n.p.o. and GI consultation. Lipase level is actually normal, but it could have been high last night when she presented. Imaging studies are consistent with acute pancreatitis. We will get a lipid panel, TSH, A1c to evaluate for elevated glucose levels or hypertriglyceridemia. Restart all her home medications with no changes. She will continue n.p.o. with just ice chips. Put on Lovenox for DVT prophylaxis. Encourage ambulation as well. Await recommendations by GI. More orders will be placed based on the clinical course. At this time, we will continue following very closely. MD MINA Valencia/BAUTISTA /[id number]
[2019-01-24 11:12] LABS: THYROID STIMULATING HORMONE 1.615 uIU/mL (0.350-4.940)
[2019-01-24] MEDS ORDERED: ENOXAPARIN SOD INJ 40 MG/0.4 ML SYR SC SCH (17:00)
--- NOTE | 2019-01-24 18:21 | NUR ---
Dr. Amezquita here to see pt. Emotional support given. Call combs within reach. Will endorse to next shift
[2019-01-24] MEDS ORDERED: SODIUM CHLORIDE 0.9% 50ML 50 ML ONE (18:54)
[2019-01-24] MEDS ORDERED: IOPAMIDOL 370 MG/ML 200 ML INFUS..BTL INJ ONE (18:55)
--- NOTE | 2019-01-24 19:00 | NUR ---
Pt visited in room during nursing rounds. Patient is a new admit with diagnosis of Acute Pancreatitis. Patient alert and oriented x4. Ambulatory in room prn. On IVF (NS at 100ml/hr). NPO except ice chips diet. at bedside. Patient denies pain at this time. Call combs within reach. Will monitor pt closely.
--- NOTE | 2019-01-24 19:08 | Consultation ---
DATE OF CONSULTATION: 01/24/2019 HISTORY OF PRESENT ILLNESS: Ms. Vuong is a 43-year-old lady in good health except for overweight and hypertension. She also takes nonsteroidal anti-inflammatory drugs regularly for arthritis. She came with abdominal pain. She had a CT scan without contrast in emergency room, diagnosis was pancreatitis. The CT scan show edematous pancreas and was admitted, and I was asked to see her for evaluation. She stated her pain started 2 days ago after eating, it comes and goes in the epigastric area always after eating and lasts only a few minutes, [id number]. No relieving or contributing factor, using nonsteroidal anti-inflammatory drug regularly. Nausea, but no vomiting. No fever. She had loose bowel movements since her gallbladder surgery and she does complain of acid reflux, which she used OTC medication for. REVIEW OF SYSTEMS: Unremarkable. ALLERGIES: CODEINE, IBUPROFEN, PSEUDOEPHEDRINE, AND BACTRIM. CURRENT MEDICATIONS: 1. Lovenox. 2. Pepcid. 3. Lopressor. 4. Zofran. PAST SURGICAL HISTORY: Left breast biopsy, partial hysterectomy, left arm surgery and cholecystectomy. SOCIAL HISTORY: She does not smoke or drink. FAMILY HISTORY: Noncontributory. PHYSICAL EXAMINATION: GENERAL: Awake, alert, and oriented. VITAL SIGNS: Hemodynamically stable. Afebrile. HEENT: Normal sclerae. NECK: Supple. No node or mass. LUNGS: Clear to auscultation. HEART: Regular rate and regular rhythm. ABDOMEN: Obese, soft, not tender. No acute sign. Bowel sounds present. EXTREMITIES: No edema. CENTRAL NERVOUS SYSTEM: Motor function grossly intact. LABORATORY DATA: CBC normal. Comprehensive panel normal. TSH normal. Liver function normal. Lipase 23. IMPRESSION: Abdominal discomfort, probably related to using nonsteroidal anti-inflammatory drugs. Because of the CT scan without contrast showed edematous pancreas, I am repeating the CT with contrast of the pancreas. Also with her loose stools since the gallbladder surgery, I am ordering cholestyramine every day. I will change her Pepcid to Protonix and we will follow. Tamar Amezquita MD RD/MODL /[id number]
[2019-01-25] VITALS: BP 117/69
[2019-01-25] MEDS: SODIUM CHLORIDE 0.9% 1000ML 1,000 ML IV SCH ×2 (02:01→09:00)
[2019-01-25 04:00] VITALS: BP 125/69
[2019-01-25 06:10] LABS: BASOPHILS # (AUTO) 0.1 (0.0-0.1); BASOPHILS % 0.7 % (0.0-1.0); EOSINOPHILS # (AUTO) 0.2 (0.0-0.4); EOSINOPHILS % 2.4 % (0.0-6.0); HEMATOCRIT 38.5 % (34.2-44.1); HEMOGLOBIN 12.6 g/dL (12.0-16.0); LYMPHOCYTES % 27.4 % (18.0-39.1); MEAN CORPUSCULAR HEMOGLOBIN 28.8 pg (28-32); MEAN CORPUSCULAR HGB CONC 32.7 g/dL (31-35); MEAN CORPUSCULAR VOLUME 87.9 fL (81-99); MONOCYTES # (AUTO) 0.4 (0.2-0.8); MONOCYTES % 5.8 % (4.4-11.3); NEUTROPHILS # (AUTO) 4.7 (2.1-6.9); NEUTROPHILS % 63.4 % (38.7-80.0); PLATELET COUNT 233 x10e3/uL (140-360); RED BLOOD COUNT 4.38 x10e6/uL (3.6-5.1); RED CELL DISTRIBUTION WIDTH 13.2 % (11.7-14.4)
[2019-01-25 06:23] LABS: ANION GAP 11.6 mmol/L (8-16); BLOOD UREA NITROGEN 8 mg/dL (7-26); BUN/CREATININE RATIO 13 (6-25); CALCIUM 8.1 mg/dL (8.4-10.2); CARBON DIOXIDE 24 mmol/L (22-29); CHLORIDE 107 mmol/L (98-107); CREATININE, SERUM 0.61 mg/dL (0.57-1.11); EST GLOMERULAR FILTRATION RATE > 60 ML/MIN (60-); GLUCOSE 122 mg/dL (74-118); POTASSIUM 3.6 mmol/L (3.5-5.1); SODIUM 139 mmol/L (136-145)
--- NOTE | 2019-01-25 07:00 | NUR ---
received am report from GRETCHEN Fry and morning rounds done. pt is alert resting in bed, no s/s of distress. call light is within reach, instructed to call nurse for help
[2019-01-25] MEDS ORDERED: PANTOPRAZOLE SOD 40 MG TABEC PO SCH (07:30)
--- NOTE | 2019-01-25 07:53 | Diagnostic Imaging Report ---
EXAM: CT Abdomen and Pelvis WITH contrast INDICATION: Abdominal pain, pancreatitis COMPARISON: Abdominal CT 01/23/2019 TECHNIQUE: Abdomen and pelvis were scanned utilizing a multidetector helical scanner from the lung base to the pubic symphysis after administration of IV contrast. Coronal and sagittal reformations were obtained. Routine protocol was performed. Scan was performed when during portal venous phase. IV CONTRAST: 100 mL of Isovue 370 ORAL CONTRAST: None COMPLICATIONS: None RADIATION DOSE: Total DLP: 817 mGy*cm Estimated effective dose: (DLP x 0.015 x size factor) mSv CTDIvol has been reviewed. It is below the limits set by the Radiation Protocol Committee (RPC). Dose modulation, iterative reconstruction, and/or weight based adjustment of the mA/kV was utilized to reduce the radiation dose to as low as reasonably achievable. FINDINGS: LINES and TUBES: None. LOWER THORAX: Unremarkable HEPATOBILIARY: Diffuse decreased hepatic attenuation. The liver is mildly enlarged. No focal hepatic lesions. No biliary ductal dilation. GALLBLADDER: There are cholecystectomy clips. SPLEEN: No splenomegaly. PANCREAS: No focal masses or ductal dilatation. ADRENALS: No adrenal nodules KIDNEYS/URETERS: Kidneys enhance symmetrically. There are 2 simple cysts in the inferior pole of the right kidney, the largest measures 1.2 cm. No solid masses. No stones. GI TRACT: No abnormal distention, wall thickening, or evidence of bowel obstruction. Mild submucosal edema in the gastric antrum (series 2 image 34). Appendix is normal. PELVIC ORGANS/BLADDER: Surgical clips in the right pelvis. Hysterectomy. No adnexal masses.. LYMPH NODES: Slightly prominent mesenteric lymph nodes at the mesenteric root. VESSELS: Unremarkable. PERITONEUM / RETROPERITONEUM: Minimal fat stranding along the mesenteric root. No free air or fluid. BONES: Unremarkable. SOFT TISSUES: There is a fat containing para-umbilical hernia. 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 Low suspicion for pancreatitis. Subtle findings suggestive of mild antral gastritis. Signed by: Bennett Michael DO on 01/25/2019 7:50 AM
[2019-01-25 08:00] VITALS: BP 141/71
[2019-01-25 08:14] VITALS: BP 141/71
[2019-01-25] MEDS ORDERED: CHOLESTYRAMINE 4 GM PACKET PO SCH (09:00)
[2019-01-25] MEDS: METOPROLOL TARTRATE 50 MG TAB PO SCH (09:19)
[2019-01-25] MEDS: FAMOTIDINE 20 MG/2 ML VIAL IV SCH (09:19)
[2019-01-25] MEDS: ACETAMINOPHEN 325 MG TAB PO PRN (09:20)
[2019-01-25 12:00] VITALS: BP 110/69
[2019-01-25] MEDS ORDERED: ONDANSETRON HCL 4 MG ORAL DISINTEGRATING TAB PO PRN (13:00)
--- NOTE | 2019-01-26 01:09 | Discharge Summary ---
FINAL DISCHARGE DIAGNOSES: 1. Acute gastritis. There is no evidence of any acute pancreatitis on imaging studies. This is likely secondary to NSAID usage. 2. Hypertension. 3. Prediabetes. 4. Morbid obesity. CONSULTANTS: GI. PHYSICAL EXAMINATION: VITAL SIGNS: Temperature is 97, pulse 86, respiratory rate is 18, blood pressure 141/71, pulse ox 94% on room air. LAB FINDINGS: Show white count 7.4, hemoglobin 12.6, hematocrit is 38, and platelets of 233. Chemistry; sodium 139, potassium 3.6, chloride 107, bicarb 24, anion gap of 11, BUN is 8, creatinine 0.61, glucose is 122, calcium is 8.1, total bilirubin is 0.7, AST is 12, ALT 12, alkaline phosphatase 76. Troponins were negative. Albumin was 3.2. LDL was 72. Lipase level was 21. TSH was 1.6. MICROBIOLOGY: None. IMAGING STUDIES: Initial CT abdomen and pelvis without contrast shows suspicious for mild acute edematous pancreatitis with pancreatic uncinate process. No fluid collection. Splenomegaly with hepatic steatosis. Repeat CT abdomen and pelvis with IV contrast shows minimal fat stranding along the mesenteric root and slightly prominent mesenteric root. Lymph nodes can be seen as a mesenteric panniculitis. Low suspicious for pancreatitis. Subtle findings suggestive of mild antral gastritis. HOSPITAL COURSE: A 43-year-old female, who came into the ED with reportedly initially concern for underlying acute pancreatitis with a normal lipase level. The patient was admitted and GI was consulted. Repeat CT imaging finding with IV contrast shows no evidence of any pancreatitis, but does show evidence of antral gastritis, likely secondary to her NSAID usage she uses at home. While here, she was initially n.p.o., then advanced from clear liquid to advance as tolerated. She was on IV fluids. Pain control as well. Per GI, no further workup needed. Outpatient followup with him in his office. All lab findings were reviewed prior to being discharged and reviewed them with the patient as well. Her A1c is 5.9. I am recommending holding the metformin upon discharge and following up with her PCP. Also, discontinue the meloxicam upon discharge. On discharge, vital signs were stable. Labs reviewed and stable. The patient is seen and evaluated, examined thoroughly on the day of discharge. No other complaints. The patient verbalized understanding and agreed to plan of care to follow up accordingly as an outpatient with primary care physician in 1 week and GI specialist in 2 weeks' time. MEDICATIONS: See med reconciliation form. DISPOSITION: Home. CONDITION: Stable. DIET: Heart healthy. In the event of any worsening symptoms, the patient advised to come back to the ED for further evaluation. Discharge summary took greater than 35 minutes. MD MINA Valencia/BAUTISTA /[id number]
[2019-01-26] MEDS ORDERED: FAMOTIDINE 20 MG TAB PO SCH (07:30)
== END 2019-01-25 14:01 | disposition home or self-care (01) | DRG 439 ==
LOC: FSED 21:19 → ERHOLD 23:40 → MED/SURG3 01-24 00:41
PROVIDERS: ADMIT Internal Medicine; ATTEND Internal Medicine
DX: K85.90 Acute pancreatitis without necrosis or infection, unspecified (principal); Z68.41 Body mass index [BMI] 40.0-44.9, adult; I10 Essential (primary) hypertension; E11.9 Type 2 diabetes mellitus without complications; K29.70 Gastritis, unspecified, without bleeding; E66.01 Morbid (severe) obesity due to excess calories; E78.1 Pure hyperglyceridemia
CPT/HCPCS: 36415; 74176; 74177; 80048; 80053; 80061; 80076; 82948; 83036; 83690; 84443; 84484; 85025; 96361; 96374; 99284; J1650; J7030; Q9967

== ENCOUNTER 2020-04-03 19:51 | Emergency (ER) | payer BC, OTHER ==
[~2020-04-03] VITALS: Ht 167.6 cm; Wt 126.1 kg
[~2020-04-03 19:51] MED LIST changes: +ALBUTEROL0.63 MG/3 INH; +HYDROCHLOROTHIA25 MG PO; +MELOXICAM7.5 MG PO; +METFORMIN HCL500 M2 PO
[2020-04-03] MEDS ORDERED: ASPIRIN 325 MG TAB PO ONE (20:30)
[2020-04-03] MEDS ORDERED: SODIUM CHLORIDE FLUSH 10 ML SYR INJ PRN (20:30)
[2020-04-03] MEDS ORDERED: SODIUM CHLORIDE 0.9% 1000ML 1,000 ML IV STA (20:39)
[2020-04-03] MEDS ORDERED: SODIUM CHLORIDE 0.9% 1000ML 1,000 ML ONE (21:01)
[2020-04-03] MEDS ORDERED: ASPIRIN 325 MG TAB ONE (21:01)
--- NOTE | 2020-04-03 21:39 | Diagnostic Imaging Report ---
EXAMINATION: CXR 2 VIEW - HOPD INDICATION: CP COMPARISON: None FINDINGS: TUBES and LINES: None. LUNGS: Normal lung volumes. Lungs are clear. No consolidations. PLEURA: No pleural effusion or pneumothorax. HEART AND MEDIASTINUM: The cardiomediastinal silhouette is unremarkable. BONES AND SOFT TISSUES: No acute osseous lesion. Soft tissues are unremarkable. UPPER ABDOMEN: No free air under the diaphragm. IMPRESSION: No acute thoracic radiographic abnormality. Signed by: Rich Ya MD on 04/03/2020 9:36 PM
[2020-04-03] MEDS ORDERED: ONDANSETRON ODT8 MG PO (22:14)
--- NOTE | 2020-04-03 22:15 | Emergency Department Note ---
History of Present Illnes History of Present Illness Chief Complaint: PALPITATIONS/LIGHTHEADEDNESS History of Present Illness This is a 44 year old female . was doing well until 1 days ago then intermittent palpitations then lightheadness only when palpitations. h/o chronic diarrhea since cholecystectomy and stop taking taking antidiarrheal med x 2 days Historian: Patient Arrival Mode: Car History limited by: condition of the patient (normal) Direct Marketing Representative Required: No Onset (how long ago): day(s) (1) Location: see above Quality: moderate Radiation: Reports non-radiation Severity: moderate Onset quality: sudden Duration (how long): day(s) (1) Timing of current episode: intermittent Progression: unchanged Chronicity: new Context: Denies recent illness, Denies recent surgery, Denies recent immobilization, Denies recent travel, Denies trauma/injury, Denies new medi cations, Denies hx of DVT/PE, Denies non-compliance w/ medications Relieving factors: none Exacerbating factors: none Associated symptoms: Reports denies other symptoms Treatments prior to arrival: none Past Medical/Family History Physician Review I have reviewed the patient's past medical and family history. Any updates have been documented here. Past Medical History Recent Fever: No Clinical Suspicion of Infectio: No New/Unexplained Change in Ment: No Past Medical History: Hypertension, Diabetes Other Medical History: Arthritis (back),Asthma, Pneumonia Past Surgical History: Cholecysctectomy Other Surgery: Partial hysterectomy, breast biopsies (x3), left arm surgery Social History Smoking Cessation: Never Smoker Counseling Performed: No Alcohol Use: Social Any Illegal Drug Use: No TB Exposure/Symptoms: No Physically hurt or threatened: No Family History Family history of heart diseas: No Other Last Tetanus: UNK Any Pre-Existing Lines (PICC,: No Is patient up to date on immun: No Review of Systems Review of Systems Constitutional: Reports no symptoms EENTM: Reports no symptoms Cardiovascular: Reports as per HPI Respiratory: Reports no symptoms Gastrointestinal: Reports no symptoms Genitourinary: Reports no symptoms Musculoskeletal: Reports no symptoms Integumentary: Reports no symptoms Neurological: Reports as per HPI Psychological: Reports no symptoms Endocrine: Reports no symptoms Hematological/Lymphatic: Reports no symptoms Review of other systems: All other systems negative Physical Exam Related Data Allergies: Coded Allergies: codeine (Verified Allergy, Unknown, 01/23/19) ibuprofen (Verified Allergy, Unknown, 01/23/19) pseudoephedrine HCl (Verified Allergy, Unknown, 01/23/19) sulfamethoxazole (Verified Allergy, Unknown, 01/23/19) trimethoprim (Verified Allergy, Unknown, 01/23/19) Vital signs reviewed: Yes Physical Exam CONSTITUTIONAL Constitutional: Present well-developed, Present well-nourished HENT HENT: Present normocephalic, Present atraumatic, Present mucosae dry, Present nose normal HENT L/R: Present left ext ear normal, Present right ext ear normal EYES Eyes: Reports PERRL, Reports conjunctivae normal NECK Neck: Present ROM normal, Present supple PULMONARY Pulmonary: Present effort normal, Present breath sounds normal CARDIOVASCULAR Cardiovascular: Present regular rhythm, Present heart sounds normal, Present capillary refill normal, Present normal rate GASTROINTESTINAL Abdominal: Present soft, Present nontender, Present bowel sounds normal GENITOURINARY Genitourinary: Present exam deferred SKIN Skin: Present warm, Present dry MUSCULOSKELETAL Musculoskeletal: Present ROM normal NEUROLOGICAL Neurological: Present alert, Present oriented x 3, Present no gross motor or sensory deficits PSYCHOLOGICAL Psychological: Present mood/affect normal, Present judgement normal Results Laboratory Lab results reviewed: Yes Laboratory comments CBC/CMP/D DIMER/CARDIAC ENZYMES NORMAL, Imaging Imaging results reviewed: Yes Impressions [place] [address] Patient Name: VIDHI GREENE MR #: [id number] : 1975 Age/Sex: 44/F Req #: [id number] Adm Physician: Ordered by: NIKO PUGA Report #: [id number] Location: [facility] Room/Bed: Procedure: [id number] HOPD/CXR 2 VIEW - HOPD Exam Date: 04/03/20 Exam Time: 2039 REPORT STATUS: Signed EXAMINATION: CXR 2 VIEW - HOPD INDICATION: CP COMPARISON: None FINDINGS: TUBES and LINES: None. LUNGS: Normal lung volumes. Lungs are clear. No consolidations. PLEURA: No pleural effusion or pneumothorax. HEART AND MEDIASTINUM: The cardiomediastinal silhouette is unremarkable. BONES AND SOFT TISSUES: No acute osseous lesion. Soft tissues are unremarkable. UPPER ABDOMEN: No free air under the diaphragm. IMPRESSION: No acute thoracic radiographic abnormality. Signed by: Nena Melara MD on 04/03/2020 9:36 PM Dictated By: NENA MELARA MD 35 Transcribed By: ANDREW on 04/03/202135 COPY TO: NIKO PUGA~ Procedures 12 Lead ECG Interpretation ECG Interpretation : ECG: ECG 1 Direct Marketing Representative: Interpreted by ED physician Date: Apr 03, 2020 Time: 20:04 Rhythm: sinus rhythm (NORMAL) Rate: normal BPM: 81 QRS axis: normal ST segments normal: Yes T waves normal: Yes Clinical Impression: abnormal ECG (POOR R WAVE PROGRESSION IN ANTERIOR LEADS) Assessment & Plan Medical Decision Making MDM see below Reassessment Reassessment time: 22:00 Reassessment feels much better Assessment & Plan Final Impression: (1) Palpitations (2) Dehydration (3) Chronic diarrhea Depart Disposition: HOME, SELF-detention Meds Active Scripts Ondansetron (ONDANSETRON ODT) 8 Mg Tab.rapdis, 4 MG PO Q4HR PRN for NAUSEA AND VOMITING, #30 TAB Prov:NIKO PUGA 04/03/20 Reported Medications Albuterol Sulfate (ALBUTEROL SULFATE) 0.63 Mg/3 Ml Vial.neb, 1 INH DAILY PRN for shortness of breath 01/24/19 Hydrochlorothiazide (HYDROCHLOROTHIAZIDE) 25 Mg Tablet, 12.5 MG PO DAILY, #30 TAB 01/24/19 Metoprolol Tartrate (METOPROLOL TARTRATE) 50 Mg Tablet, 50 MG PO DAILY 01/13/13 Medications in the ED Sodium Chloride 10 ml PRN PRN INJ IV SITE FLUSH Last administered on 04/03/20at 21:00; Admin Dose 10 ML; Start 04/03/20 at 20:30; Stop 05/03/20 at 20:29 Aspirin 324 mg ONCE ONCE PO Last administered on 04/03/20at 21:00; Admin Dose 324 MG; Start 04/03/20 at 20:30; Stop 04/03/20 at 20:40; Status DC Sodium Chloride 1,000 ml @ 1,000 mls/hr Q1H STAT IV Last administered on 04/03at 21:00; Admin Dose 1,000 MLS/HR; Start 04/03/20 at 20:39; Stop 04/03/20 at 21:38; Status DC Aspirin 325 mg STK-MED ONCE .ROUTE ; Start 04/03/20 at 21:01; Stop 04/03/20 at 20:54; Status DC Sodium Chloride 1,000 ml @ ud STK-MED ONCE .ROUTE ; Start 04/03/20 at 21:01; Stop 04/03/20 at 20:54; Status DC NIKO PUGA Apr 03, 2020 22:15
--- OUTSIDE RECORDS SUMMARY | 2020-04-09 18:15 | XMS REPORT | Continuity of Care Document ---
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 [place] UNK Active 1 [facility] Unspecified ovarian cyst, left side 01/06/2018 07/21/2018 [facility] R10.2 Active 12/25/2017 [facility] DX: M79.661=PAIN IN RIGHT LOWER LEG/S86. Active 01/11/2016 [facility] 789.01 - ABDMNAL PAIN RT Active 03/03/2015 [facility] 625.3/626.2/218.9 Active 03/28/2014 [facility] 626.2-ABNORMAL MENSTRUAL PERIODS Active 03/03/2014 [facility] 724.5 - BACKACHE NOS Active 11/19/2013 [facility] Acquired absence of both cervix and uterus 07/21/2018 [facility] Gastroesophageal reflux disease (disorder) Active Problem 06/07/2019 [facility] [place] Hypertensive disorder, systemic arterial (disorder) Active Problem 06/07/2019 [facility] [place] Final: Abdominal Pain, Right Upper Quadrant 03/06/2015 [facility] [place] Final: HEPATOMEGALY 03/06/2015 [facility] [place] Final: Unspecified Disorder of Liver 03/06/2015 [facility] [place] Backache (finding) Active Problem 01/18/2016 [facility] [place] [place] Dysmenorrhea (disorder) Active Problem 01/18/2016 [facility] [place] [place] Menorrhagia (finding) Active Problem 01/18/2016 [facility] [place] [place] Uterine leiomyoma (disorder) A ctive Problem [facility] [place] [place] [place] Anxiety (finding) Resolved Problem 06/07/2019 [facility] [place] [place] Asthma (disorder) Active Problem 06/07/2019 [facility] [place] [place] Depressive disorder (disorder) Resolved Problem 08/2019 [facility] [place] [place] History of - liver disease (context-dependent category ) Active Problem 06/07/2019 [facility] [place] [place] Hypertriglyceridemia (disorder) Active Problem 08/2019 [facility] [place] [place] Morbid obesity (disorder) Acti ve Problem 08/2019 [facility] [place] [place] Allergic disposition (disorder) Resolved Problem multiple [facility] Hypertension Active 08/07/2013 [facility] Lower Back Pain Active 08/07/2013 [facility] Irritable Bowel Syndrome Active 08/07/2013 [facility] Back Pain Active 08/07/2013 [facility] Upper Back Pain (Between Shoulder Blades) Active 08/07/2013 [facility] Vitamin D Deficiency Active 08/07/2013 [facility] Acute Gastritis Active 08/07/2013 [facility] Acute Upper Respiratory Infection Active 08/07/2013 [facility] Acute Pharyngitis Active 08/07/2013 [facility] Medications Medication Details Route Status Patient Instructions Ordering Provider Order Date Source amoxicillin 500 mg oral tablet 500 mg = 1 tab, PO, BID, X 10 day, # 20 tab, 0 Refill(s), Pharmacy: [facility] [id number] Active 06/02/2017 [facility] Fluticasone propionate 0.05 MG/ACTUAT Me tered Dose Nasal [place] See Instructions, # 48 mL, Refill(s) 2, SHAKE LIQUID AND USE 1 SPRAY IN EACH NOSTRIL DAILY, Pharmacy: [facility] [id number] Active 06/01/2017 [facility] Fluticasone propionate 0.05 MG/ACTUAT Me tered Dose Nasal [place] 1 spray, NASAL, Daily, # 1 ea, 2 Refill( s), Pharmacy: [facility] [id number] No Longer Active 05/31/2017 [facility] benzonatate 100 mg oral capsule 100 mg = 1 cap, PO, TID, do not crush or chew, X 10 day, # 30 cap, 0 Refill(s), Pharmacy: [facility] [id number] Active 05/31/2017 [facility] 200 ACTUAT Albuterol 0.09 MG/ACTUAT [place] red Dose Inhaler [ProAir HFA] 1 puff, INHALER, Q4H, PRN for wheezing, # 8.5 gm, 0 Refill(s), Pharmacy: [facility] [id number] Active 05/31/2017 [facility] Acetaminophen 300 MG / Codeine Phosphate 30 MG Oral Tablet [Tylenol with Codeine #3] 1 tab, PO, Q6H, for pain, # 30 tab, 0 Re fill(s) Active 04/16/2014 [facility] Acetaminophen 300 MG / Codeine Phosphate 30 MG Oral Tablet [Tylenol with Codeine #3] Notes: Do not exceed 4gm/day of acetamin ophen. (Same as: Tylenol with Codeine # 3) Inactive 04/16/2014 [facility] Acetaminophen 300 MG / Codeine Phosphate 30 MG Oral Tablet [Tylenol with Codeine #3] Notes: Do not exceed 4gm/day of acetamin ophen. (Same as: Tylenol with Codeine # 3) Inactive 04/16/2014 [facility] cefOXitin (SCIP) + Sodium Chloride 0.9% IV 100 mL Notes: (Same As: Mefoxin) Inactive 04/16/2014 [facility] Cefoxitin 20 MG/ML Injectable Solution Notes: (Same As: Mefoxin) Inactive 04/15/2014 [facility] Oxycodone 5 mg, Route: PO, Ashutosh g form: TAB, Q4H, Dosing Weight 113.182, kg, PRN Pain Score 4-6, Start date: 04/15/14 11:14:00, Duration: 30 day, Stop date: 05/15/14 11:13:00 Inactive 04/15/2014 [facility] Promethazine 6.25 mg, Route: I VPB, ONCE, Dosing Weight 113.182, kg, PRN Nausea & Vomiting, Start date: 04/15/14 11:14:00 Inactive 04/15/2014 [facility] Ondansetron 4 mg, Route: IVP, ONCE, Dosing Weight 113.182, kg, PRN Nausea & Vomiting, Start date: 04/15/14 11:14:00 Inactive 04/15/2014 [facility] Fentanyl 50 microgram, Route: IVP, Q5Min, Dosing Weight 113.182, kg, PRN Pain Score 7-10, Start date: 04/15/14 11:14:00, Duration: 2 doses or times, Stop date: Limited # of times Inactive 04/15/2014 [facility] Morphine 4 mg, Route: IVP, Q5M in, Dosing Weight 113.182, kg, PRN Pain Score 7-10, Start date: 04/15/14 11:14:00, Duration: 3 doses or times, Stop date: Limited # of times Inactive 04/15/2014 [facility] Meperidine 12.5 mg, Route: IVP , Q30Min, Dosing Weight 113.182, kg, PRN Other -See Comment, For shivering, Start date: 04/15/14 11:14:00, Duration: 2 doses or times, Stop date: Limited # of times Inactive 04/15/2014 [facility] Oxycodone Hydrochloride 1 MG/ML Oral Solution 5 mg, Route: NG, Drug form: LIQ, Q4H, Dosing Weight 113.182, kg, PRN Pain Score 4-6, Start date: 04/15/14 11:14:00, Duration: 30 day, Stop date: 05/15/14 11:13:00 Inactive 04/15/2014 [facility] Diphenhydramine 12.5 mg, Route : IVP, Drug form: INJ, Q6H, Dosing Weight 113.182, kg, PRN Itching, Start date: 04/15/14 11:14:00, Duration: 30 day, Stop date: 05/15/14 11:13:00 Inactive 04/15/2014 [facility] Naloxone 0.04 mg, Route: IVP, Q2MIN, Dosing Weight 113.182, kg, PRN Narcotic Reversal, Start date: 04/15/14 11:14:00, Duration: 8 doses or times, Stop date: Limited # of times Inactive 04/15/2014 [facility] Flumazenil 0.2 mg, Route: IVP, PRN, Dosing Weight 113.182, kg, PRN Benzodiazepine Reversal, Initial dose, Start date: 04/15/14 11:14:00, Duration: 30 day, Stop date: 05/15/14 11:13:00 Inactive 04/15/2014 [facility] Hydromorphone 0.5 mg, Route: I PROCESS EXPERT, Q5Min, Dosing Weight 113.182, kg, PRN Pain Score 7-10, Start date: 04/15/14 11:14:00, Duration: 4 doses or times, Stop date: Limited # of times Inactive 04/15/2014 [facility] Calcium Chloride 0.0014 MEQ/ML / Potassi um Chloride 0.004 MEQ/ML / Sodium Chloride 0.103 MEQ/ML / Sodium Lactate 0.028 MEQ/ML Injectable Solution 1,000 mL, Rate: 125 ml/hr, Infuse over: 8 hr, Route: IV, Dosing Weight 113.182 kg, Total Volume: 1,000, Start date: 04/15/14 11:14:00, Duration: 30 day, Stop date: 05/15/14 11:13:00 Inactive 04/15/2014 [facility] Demerol HCl Notes: (Same as: Sade avendano) "Use Precaution in Elderly, Seizure disorders, and Renal impairment" No Longer Active 04/15/2014 [facility] Magnesium Hydroxide Notes: (Sa me as: Milk of Magnesia, MOM) No Longer Active 04/15/2014 [facility] Aluminum Hydroxide 40 MG/ML / Magnesium Hydroxide 40 MG/ML / Simethicone 4 MG/ML Oral Suspension Notes: (aluminum hydroxide-magnesium hyd-simethicone [phone]/5ml 30 ml ud MELODY) No Longer Active 04/15/2014 [facility] Calcium Chloride 0.0014 MEQ/ML / Potassi um Chloride 0.004 MEQ/ML / Sodium Chloride 0.103 MEQ/ML / Sodium Lactate 0.028 MEQ/ML Injectable Solution 1,000 mL, Rate: 125 ml/hr, Infuse over: 8 hr, Route: IV, Dosing Weight 113.182 kg, Total Volume: 1,000, Start date: 04/15/14 10:59:00, Duration: 30 day, Stop date: 05/15/14 10:58:00 No Longer Active 04/15/2014 [facility] Promethazine Notes: Do not giv e IV push. (Same as: Phenergan) No Longer Active 04/15/2014 [facility] Bisacodyl Notes: (Same As: Kyle colax, Bisco-Lax) No Longer Active 04/15/2014 [facility] Simethicone Notes: (Same as: Leeroy ylicon) No Longer Active 04/15/2014 [facility] Ondansetron Notes: (Same as: [place] spence) No Longer Active 04/15/2014 [facility] Calcium Chloride 0.0014 MEQ/ML / Potassi um Chloride 0.004 MEQ/ML / Sodium Chloride 0.103 MEQ/ML / Sodium Lactate 0.028 MEQ/ML Injectable Solution 1,000 mL, Rate: 25 ml/hr, Infuse over: 4 0 hr, Route: IV, Dosing Weight 113.182 kg, Total Volume: 1,000, Start date: 04/15/14 7:41:00, Duration: 30 day, Stop date: 05/15/14 7:40:00 Inactive 04/15/2014 [facility] meloxicam 15 mg oral tablet 15 mg = 1 tab, PO, Daily, 0 Refill(s) Active 04/10/2014 [facility] cyclobenzaprine 5 mg, PO, as n eeded for muscle spasm, 0 Refill(s) Active 04/10/2014 [facility] Esomeprazole 40 MG Enteric Coated Capsule [Nexium] 40 mg = 1 cap, PO, Daily, 0 Refill(s) Active 04/10/2014 [facility] metoprolol 50 mg oral tablet, extended release 50 mg = 1 tab, PO, Daily, 0 Refill(s) Active 04/10/2014 [facility] Cefoxitin Notes: (Same As: Mef oxin) No Longer Active 04/10/2014 [facility] Azithromycin 250 MG Oral Tablet ; Start Date: 08/07/2013; End Date: (Active) Active 08/07/2013 [facility] Dexamethasone 4 MG Oral Tablet ; Start Date: 08/07/2013; End Date: 08/17/2013 (Active) Active 08/07/2013 [facility] Dexamethasone 4 MG Oral Tablet ; Start Date: 06/28/2013; End Date: 07/08/2013 (Active) Active 06/28/2013 [facility] Azithromycin 250 MG Oral Tablet ; Start Date: 06/28/2013; End Date: (Active) Active 06/28/2013 [facility] Cyclobenzaprine HCl 5 MG Oral Tablet ; Start Date: 03/30/2013; End Date: 04/29/2013 (Active) Active 03/30/2013 [facility] Levbid 0.375 MG Oral Tablet Extended Release 12 Hour ; Start Date: 03/30/2013; End Date: (Active) Active 03/30/2013 [facility] Vitamin D3 5000 UNIT Oral Capsule ; Start Date: 03/30/2013 (Active) Active 03/30/2013 [facility] NexIUM 40 MG Oral Capsule Delayed Release ; Start Date: 03/30/2013; End Date: (Active) Active 03/30/2013 [facility] Metoprolol Succinate ER 50 MG Oral Table t Extended Release 24 Hour ; Start Date: 01/12/2013; End Date: 06/1899 (Active) Active 01/12/2013 [facility] Dexilant 60 MG Oral Capsule Delayed Release ; Start Date: 01/12/2013 (Active) Active 01/12/2013 [facility] Xanax 0.25 MG Oral Tablet ; St art Date: 01/12/2013 (Active) Active 01/12/2013 [facility] Allergies, Adverse Reactions, Alerts Substance Category Reaction Severity Reaction type Status Date Reported Comments Source acetaminophen<sup>1</sup> Asse rtion Drug aller gy [facility] 09/30/14[facility] Originally documented [facility]. [facility]sup>2</sup> Assertion Drug allergy [facility] 09/30. Originally documented as BACTRIM. [facility] ibuprofen-pseudoephedrine<sup>3</sup> Assertion Drug aller gy Active [facility] 09/30/14. Originally documented as ADVIL COLD SINUS. [facility] Advil Cold & Sinus Assertion Drug allergy Active [facility] Bactrim Assertion Drug allergy Active [facility] Vicodin Assertion Drug allergy Active [facility] acetaminophen-HYDROcodone<sup>4</sup> Assertion Drug aller gy Active [facility] 09/30/14. Originally documented as VICODIN. [facility] guaiFENesin<sup>5</sup> Assert ion Drug aller gy Active Data migrated from [employer] on 09/30/14. Originally documented as ROBITUSIN. [facility] acetaminophen-HYDROcodone<sup>2</sup> Assertion Drug aller gy Active Data migrated from [employer] on 09/30/14. Originally documented as VICODIN. [facility] guaiFENesin<sup>3</sup> Assert ion Drug aller gy Active Data migrated from [employer] on 09/30/14. Originally documented as ROBITUSIN. [facility] ibuprofen-pseudoephedrine<sup>4</sup> Assertion Drug aller gy Active Data migrated from [employer] on 09/30/14. Originally documented as ADVIL COLD SINUS. [facility] sulfamethoxazole-trimethoprim<sup>5</sup> Assertion Drug allergy Active Data migrated from [employer] on 09/30. Originally documented as BACTRIM. [facility] Codeine Derivatives drug aller gy drug aller gy Active [facility] Uncoded Nonscreenable Allergen drug allergy drug aller gy Active [facility] Bactrim TABS drug allergy drug allergy Active [facility] Cough & Cold TABS drug allergy drug allergy Active [facility] Immunizations Immunization Date Given Site Status Last Updated Comments Source Hx influenza vaccine-unspecified 05/05/2017 completed [facility] Influenza 02/02/2010 completed [facility] Results Order Name Results Value Reference Range Date Interpretation Comments Source HEMATOLOGY Lymphocytes 19.2 20.0 - 40.0 04/16/2014 [facility] HEMATOLOGY Segs 73.3 45.0 - 75.0 04/16/2014 [facility] HEMATOLOGY Monocytes 5.7 2.0 - 12.0 04/16/2014 [facility] HEMATOLOGY Eosinophils 1.3 0.0 - 4.0 04/16/2014 [facility] HEMATOLOGY Basophils 0.5 0.0 - 1.0 04/16/2014 [facility] HEMATOLOGY Lymphocytes # 2.0 1.0 - 5.5 04/16/2014 [facility] HEMATOLOGY Segs-Bands # 7.5 1.5 - 8.1 04/16/2014 [facility] HEMATOLOGY Monocytes # 0.6 0.0 - 0.8 04/16/2014 [facility] HEMATOLOGY Eosinophils # 0.1 0.0 - 0.5 04/16/2014 [facility] HEMATOLOGY RBC 4.25 4.20 - 5.40 04/16/2014 [facility] Hgb 12.3 12.0 - 16.0 04/16/2014 [facility] MCHC 33.3 32.0 - 36.0 04/16/2014 [facility] MCH 29.0 27.0 - 31.0 04/16/2014 [facility] MCV 87.3 80.0 - 98.0 04/16/2014 [facility] MPV 7.8 7.4 - 10.4 04/16/2014 [facility] Hct 37.1 36.0 - 48.0 04/16/2014 [facility] Platelet 241 133 - 450 04/16/2014 [facility] RDW 13.6 11.5 - 14.5 04/16/2014 [facility] WBC 10.3 3.7 - 10.4 04/16/2014 [facility] URINE CHEM U Preg Negat annika (04/15/14 6:15 AM) Negative 04/15/2014 [facility] BLOOD BANK RESULTS ABO/Rh A POS 04/10/2014 [facility] BLOOD BANK RESULTS Antibody Scrn Negative (04/10/14 12:35 PM) 04/10/2014 [facility] CHEM PANEL Glucose Lvl 92 70 - 99 04/10/2014 <sup>1</sup>Interpretive Data: Adult ref erence range values reflect the clinical guidelines
of the [place] [employer]. [facility] Platelet 275 133 - 450 04/10/2014 [facility] MPV 8.2 7.4 - 10.4 04/10/2014 [facility] RDW 13.3 11.5 - 14.5 04/10/2014 [facility] WBC 10.6 3.7 - 10.4 04/10/2014 [facility] Hgb 14.9 12.0 - 16.0 04/10/2014 [facility] RBC 5.14 4.20 - 5.40 04/10/2014 [facility] MCV 87.2 80.0 - 98.0 04/10/2014 [facility] Hct 44.9 36.0 - 48.0 04/10/2014 [facility] MCHC 33.2 32.0 - 36.0 04/10/2014 [facility] MCH 29.0 27.0 - 31.0 04/10/2014 [facility] Monocytes # 0.5 0.0 - 0.8 04/10/2014 [facility] HEMATOLOGY Eosinophils # 0.2 0.0 - 0.5 04/10/2014 [facility] HEMATOLOGY Basophils # 0.1 0.0 - 0.2 04/10/2014 [facility] HEMATOLOGY Segs 66.7 45.0 - 75.0 04/10/2014 [facility] Lymphocytes 25.8 20.0 - 40.0 04/10/2014 [facility] Eosinophils 1.4 0.0 - 4.0 04/10/2014 [facility] Monocytes 5.0 2.0 - 12.0 04/10/2014 [facility] Basophils 1.1 0.0 - 1.0 04/10/2014 [facility] Lymphocytes # 2.7 1.0 - 5.5 04/10/2014 [facility] Segs-Bands # 7.1 1.5 - 8.1 04/10/2014 [facility] Treponemal Scr Non R eactive *NA* (04/10/14 12:35 PM) Non Reactive 04/10/2014 [facility] HIV 1/2 Ab Negat annika *NA* (04/10/14 12:35 PM) Negative 04/10/2014 [facility] Hep C Ab Negat annika *NA* (04/10/14 12:35 PM) 04/10/2014 [facility] Hep Bs Ag Negat annika *NA* (04/10/14 12:35 PM) Negative 04/10/2014 [facility] Pathology Reports No Data Provided for This Section Diagnostic Reports Report Value Date Source Chest 2 views DX EXAM: XR CHES T 2 VIEWS DATE: 06/04/2019 13:02 STEWARD/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 [place] and pulmonary vasculature are normal. Cardiomediastinal silhouette is normal in appearance. No acute bony abnormality is identified. Multilevel spondylosis is seen in the thoracic spine. IMPRESSION: No acute cardiopulmonary abnormality. 06/04/2019 [facility] Pelvis Transvaginal US EXAM: US PELVIS HISTORY: [...] in 6-12 weeks to document resolution. SL: [id number] 01/01/2018 [facility] Tib Fib wo contrast MRI [facility] TIBIA[facility] WITHOUT CONTRAST HISTORY: Right leg pain. [...] IMPRESSION: 1. Grade 1 medial and lateral gastrocnem ius myotendinous strain, slightly greater involving the medial gastrocnemius. 2. Trace fluid between the distal medial gastrocnemius and soleus muscle without soft tissue hematoma, tendon tear, or muscle tear. SL: [id number] 01/15/2016 [facility] Abdomen complete US EXAM: ABDO SIVA ULTRASOUND CLINICAL INDICATION: Right upper quadrant abdominal [...] is seen. IMPRESSION: 1. Hepatomegaly with increased echogenic ity compatible with diffuse fatty infiltration and or [...] cholecystectomy Dictated by staff: Dr. Milton. 03/03/2015 [facility] Foot 3 views bilateral DX EXAM : X-RAY BILATERAL FEET 3 VIEWS DATE: 12/31/2014 [...] seen. IMPRESSION: 1. Nonspecific narrowing of multiple int erphalangeal joints of the toes, likely from mild osteoarthritis. 2. Bilateral plantar calcaneal spurs and Achilles tendon insertion site enthesophytes. 3. Deformity of the right fifth toe at t he proximal interphalangeal joint, as described above, likely from prior trauma. 12/31/2014 [facility] Knee 3 Views Bilateral DX EXAM : X-RAY BILATERAL KNEES 3 VIEWS DATE: 12/31/2014 [...] right knee joint effusion has resolved. 12/31/2014 [facility] Sacroiliac joints series DX EX AM: X-RAY SACROILIAC JOINTS 2 VIEWS DATE: 12/31/2014 [...] of the sacroiliac joints are demonstrated. 12/31/2014 [facility] Spine cervical 2 or 3 view DX [...] IMPRESSION: 1. Mild anterior spondylosis at C4-C5 an d at C5-C6. No associated disc space narrowing is seen. 2. No other abnormalities of the cervica l spine are seen. 12/31/2014 [facility] Abdomen complete US EXAM: Abdomen ultrasound. INDICATION: [...] splenomegaly. IMPRESSION: 1. Echogenic and mildly heterogeneous li sally consistent with fatty infiltration or other chronic hepatocellular disease. 2. Nonvisualization of the gallbladder. Correlate with surgical history. 3. Right renal nonobstructing calculus. 4. Left renal cyst with probable layerin g milk of calcium. Consider followup. 09/03/2014 [facility] [place] Knee 3 views No fracture is id entified. No radiopaque foreign body is identified. Small volume suprapatellar bursal effusion is present. Impression: 1. No acute osseous abnormality. [facility] 2 or 3 views No a cute osseous injury is identified. Minimal levocurvature of the lumbar spine is present. There are 5 lumbar type vertebra. Moderate L3-L4 to L5-S1 facet osteoarthritis is present. Minimal anterior osteophytes seen at several lumbar spine levels. No vertebral compression fracture is seen. Right pelvic presumed surgical clip is noted. IMPRESSION: 1. Mild to moderate degenerative changes as above. 11/15/2013 [facility] [place] Consultation Notes No Data Provided for This Section Discharge Summaries No Data Provided for This Section History and Physicals No Data Provided for This Section Vital Signs Vital Sign Value Date Comments Source Heart Rate 103 05/31/[facility] Systolic (mm Hg) 132 05/31/2017 [facility] Diastolic (mm Hg) 84 05/31/2017 [facility] Heart Rate 100 05/31/2017 [facility] Temperature Oral (F) 98.4 F 05/31/2017 [facility] Height 167.64 cm 05/31/2017 [facility] Respitory Rate 14 05/31/2017 [facility] BMI Calculated 45.77 05/31/2017 [facility] Weight 128.636 05/31/2017 [facility] Systolic (mm Hg) 132 05/31/2017 [facility] Diastolic (mm Hg) 84 05/31/2017 [facility] Temperature Oral (F) 98.6 F 04/16/2014 [facility] Heart Rate 81 04/16/2014 [facility] Respitory Rate 16 04/16/2014 [facility] Diastolic (mm Hg) 78 04/16/2014 [facility] Systolic (mm Hg) 126 04/16/2014 [facility] Respitory Rate 16 04/16/2014 [facility] Heart Rate 76 04/16/2014 [facility] Temperature Oral (F) 98.0 F 04/16/2014 [facility] Systolic (mm Hg) 116 04/16/2014 [facility] Diastolic (mm Hg) 72 04/16/2014 [facility] Heart Rate 84 04/16/2014 [facility] Respitory Rate 16 04/16/2014 [facility] Temperature Oral (F) 97.7 F 04/16/2014 [facility] Diastolic (mm Hg) 66 04/16/2014 [facility] Systolic (mm Hg) 100 04/16/2014 [facility] Height 167.64 cm 04/10/2014 [facility] BMI Calculated 40.27 04/10/2014 [facility] Weight 113.182 04/10/2014 [facility] Encounters Location Location Details Encounter Type Encounter Number Reason For Visit Attending Provider ADM Date DC Date Status Source AUDIT [id number] 01/12/2013 01/12/2013 [facility] A[facility] [id number] 03/30/2013 03/30/2013 [facility] A[facility]IT [id number] 06/28/2013 06/28/2013 [facility] AUDIT [id number] 08/07/2013 08/07/2013 [facility] [place] Out[facility] Diag Services [id number] Roel Parker 11/15/2013 11/16/2013 [facility] Outpatient [id number] Rebecca De Dios 03/05/2014 03/06/2014 [facility] OBS Observation Patient [id number] Rebecca De Dios 04/15/2014 04/16/2014 [facility] [place] Out[facility] [id number] JASE HUNTER 09/03/2014 09/04/2014 [facility] [place] [facility] [place] [facility] [id number] 03 Rosalie Mcpherson 12/31/2014 01/01/2015 [facility] [place] Outpt Di[facility] Services [id number] Luis Schafer 03/03/2015 03/04/2015 [facility] [place] Outpatient [id number] RL LEONE 11/09/2015 Active [facility] Outpatient [id number] Job Ryder 01/15/2016 01/16/2016 [facility] Outpatient [id number] RL LEONE 02/03/2016 Active [facility] Outpatient [id number] LINH DHALIWAL 05/31/2017 Active [facility] Outpatient [id number] Caleb Hamilton 05/31/2017 06/01/2017 [facility] Phone Message [id number] 06/02/2017 06/04/2017 [facility] Outpatient [id number] Dennisdawson De Dios 01/01/2018 01/02/2018 [facility] [facility] [id number] 05 Elsa Thmoas 06/04/2019 06/05/2019 [facility] Procedures Procedure Code Date Perfomer Comments Source Microscopic examination of cervical Papa nicolaou smear<sup>1</sup> [id number] 03/05/2015 negative [facility], [facility] [place] Partial hysterectomy [id number] 04/05/2014 [facility], [facility] [place] Colonoscopy<sup>2</sup> [id number] 03/05/2014 negative [facility], [facility] [place] Arm repair<sup>1</sup> [id number] unable to full extend due to tension bands DELOND [facility], [facility] [place] Cholecystectomy [id number] [facility],[facility], [facility] [place] Foot joint operations [id number] [facility] [place] Lumpectomy of breast [id number] [facility] [place],[facility] Tonsillectomy [id number] [facility] [place],[facility] [place] Arm repair<sup>3</sup> [id number] 03 unable to full extend due to tension bands [facility] Mammogram<sup>4</sup> [id number] negative [facility] [place] Assessment and Plan No Data Provided for This Section Plan of Care Plan of Care Date Source Blood Pressure 06/28/2013 Routine[QLH] C BC (INCLUDES DIFF/PLT) 06/28/2013 Routine[QLH] CMP W/EGFR 06/28/2013 Routine[Q] LIPID PANEL WITH REFLEX TO DIRECT LDL 06/28/2013 Routine[QLH] TSH, 3RD GENERATION 06/28/2013 Routine 08/07/2013 [facility] Blood Pressure 06/28/2013 Routine[QLH] C BC (INCLUDES DIFF/PLT) 06/28/2013 Routine[QLH] CMP W/EGFR 06/28/2013 Routine[Q] LIPID PANEL WITH REFLEX TO DIRECT LDL 06/28/2013 Routine[QLH] TSH, 3RD GENERATION 06/28/2013 Routine 06/28/2013 [facility] Social History Social History Date Source Social History TypeResponse Alcohol Never Employment/School Status: Employed. Work/School description: [employer]. Exercise 1 Substance Abuse Use: None. Smoking Status Never smoker; Exposure to Tobacco Smoke None; Cigarette Smoking Last 365 Days No; Reg Smoking Cessation Counseling No entered on: 03/14/19 1not currently 04/10/2014 [facility] Social History TypeResponse Substance Abuse Use: None. Exercise 1 Employment/School Status: Employed. Work/School description: [employer]. Alcohol Never Smoking Status Never smoker; Exposure to Tobacco Smoke None; Cigarette Smoking Last 365 Days No; Reg Smoking Cessation Counseling No entered on: 05/31/17 1not currently 04/10/2014 [facility] Social History TypeResponse Substance Abuse Use: [...] Smoking Cessation Counseling No 04/10/2014 [facility] Marital History - Currently (Active) Never A Smoker (Active) Being A Social Drinker (Active) 08/07/2013 [facility] Family History Value Date S ource Maternal history of Hypertension (V17.49 ); (Active) Maternal history of Diabetes Mellitus (V18.0); (Active) Family history of Diabetes Mellitus (V18.0); (Active) Maternal history of Renal Failure (Active) 08/07/2013 [facility] Maternal history of Hypertension (V17.49 ); (Active) Maternal history of Diabetes Mellitus (V18.0); (Active) Family history of Diabetes Mellitus (V18.0); (Active) Maternal history of Renal Failure (Active) 06/28/2013 [facility] Maternal history of Hypertension (V17.49 ); (Active) Maternal history of Diabetes Mellitus (V18.0); (Active) Family history of Diabetes Mellitus (V18.0); (Active) Maternal history of Renal Failure (Active) 03/30/2013 [facility] Advance Directives Order Name Results Value Date Source Advance Directives Advance Dir ectives No Advance Directives available. 08/07/2013 [facility] Advance Directives Advance Dir ectives No Advance Directives available. 06/28/2013 [facility] Advance Directives Advance Dir ectives No Advance Directives available. 03/30/2013 [facility] Advance Directives Advance Dir ectives No Advance Directives available. 01/12/2013 [facility] Functional Status No Data Provided for This Section
--- OUTSIDE RECORDS SUMMARY | 2020-04-09 18:16 | XMS REPORT | Continuity of Care Document ---
Author Author [facility] t Organization [facility] Address [address] [place] [address] Phone Unavailable Care Team Providers Care Clinical Research Management Associate Name Role Phone Leeroy STOKES PCP Marilyn PUGA Attphys Unavailable Elsa Thomas Attphys DAZAFAR, S NABEELRIES Attphys Unavailable Leeroy De Dios Attphys Caleb Hamilton Attphys Caesar Ryder Attphys Tc Schafer Attphys Keturah Mcpherson Attphys JASE HUNTER Attphys Unavailable Stiven Parker Attphys DAZAFAR, S ABUNDIO Admphys Unavailable Payers Payer Name Policy Type Policy Number Effective Date Expiration Date S [facility] [employer] [id number] 2012 00:00:00 [facility] Problems Condition Name Condition Details Condition Category Status Onset Date Resolution Date Last Treatment Date Treating Clinician Comments Source J20.8 - ACUTE BRONCHITIS DUE TO OTHER N3 J20.8 - ACUTE BRONCHITIS DUE TO OTHER N3 Active 06/04/2019 [facility] Diagnosis Active 2019-06-04 00:01:00 2019-06-04 13:09:00 M earl Drake UNK UNK Active 03/06/2019 [facility] Diagnosis Active 2019-03-06 00:00:00 2019-03-15 10:04:00 M earl Drake R10.2 R10. 2 Active 12/25/2017 [facility] Diagnosis Active 2017-12-25 00:00:00 2018-01-01 06:56:00 [facility] DX: M79.661=PAIN IN RIGHT LOWER LEG/S86. DX: M79.661=PAIN IN RIGHT LOWER LEG/S86. Active 01/11/2016 [facility] Active 2016-01-11 00:00:00 2016-01-15 13:50:00 [facility] 789.01 - ABDMNAL PAIN RT 789. 01 - ABDMNAL PAIN RT Active 03/03/2015 [facility] Diagnosis Active 2015-03-03 00:01:00 2015-03-03 12:40:00 [facility] 625.3/626.2/218.9 625. 3/626.2/218.9 Active 03/28/2014 [facility] Diagnosis Active 2014-03-28 00:00:00 2014-04-16 08:10:00 [facility] 626.2-ABNORMAL MENSTRUAL PERIODS 626.2-ABNORMAL MENSTRUAL PERIODS Active 03/03/2014 [facility] Diagnosis Ac tive 2014-03-03 00:00:00 2014-03-05 07:42:00 M emorifederico Drake 724.5 - BACKACHE NOS 724. 5 - BACKACHE NOS Active 11/19/2013 [facility] [place] Diagnosis Active 2013-11-19 00:01:00 2014-01-25 21:14:00 [facility] Acute pancreatitis Acute pancreatitis Problem Active [facility] Acquired absence of both cervix and uterus Acquired absence of both cervix and uterus 07/21/2018 [facility] Problem 2018-07-21 13:21:51 [facility] [place] Final: Abdominal Pain, Right Upper Quadrant Final: Abdominal Pain, Right Upper Quadrant 03/06/2015 [facility] [place] Problem 2015-03-06 11:07:51 [facility] Final: HEPATOMEGALY Annalise l: HEPATOMEGALY 03/06/2015 [facility] [place] Problem 2015-03-06 11:07:51 [facility] Final: Unspecified Disorder of Liver Final: Unspecified Disorder of Liver 03/06/2015 [facility] [place] Problem 2015-03-06 11:07:51 [facility] Anxiety (finding) Anxi ety (finding) Resolved Problem 06/07/2019 [facility], [facility] [place] Problem Resolved 2019-06-07 03:52:23 [facility] Depressive disorder (disorder) Depressive disorder (disorder) Resolved Problem 06/07/2019 [facility], [facility] [place] Problem Resolved 2019-06-07 03:52:23 [facility] Allergic disposition (disorder) Allergic disposition (disorder) Resolved Problem 01/18/2016 [facility] [place] Problem Resolved 2016-01-18 01:32:11 [facility] Gastroesophageal reflux disease (disorder) Gastroesophageal reflux disease (disorder) Active Problem 06/07/2019 [facility], [facility] Wu,[facility], [facility] [place] Problem Active 2019-06-07 03:52:23 [facility] Hypertensive disorder, systemic arterial (disorder) Hypertensive disorder, systemic arterial (disorder) Active Problem 06/07/2019 [facility], [facility], [facility] [place] Problem Active 2019-06-07 03:52:23 [facility] Backache (finding) Back ache (finding) Active Problem 01/18/2016 [facility], [facility] [place] Problem Active 2016-01-18 01:32:11 [facility] Dysmenorrhea (disorder) Dysm enorrhea (disorder) Active Problem 01/18/2016 [facility], [facility] [place] Problem Active 2016-01-18 01:32:11 [facility] Menorrhagia (finding) Lowry rrhagia (finding) Active Problem 01/18/2016 [facility], [facility] [place] Problem Active 2016-01-18 01:32:11 [facility] Uterine leiomyoma (disorder) U terine leiomyoma (disorder) Active Problem 01/18/2016 [facility], [facility] [place] Problem Active 2016-01-18 01:32:11 [facility] [place] Asthma (disorder) Asth ma (disorder) Active Problem 06/07/2019 [facility], [facility] [place] Problem Active 2019-06-07 03:52:23 [facility] History of - liver disease (context-dependent category ) History of - liver disease (context-dependent category) Active Problem 06/07/2019 [facility] AURA [place] Problem Active 2019-06-07 03:52:23 Amaya Drake Hypertriglyceridemia (disorder) Hypertriglyceridemia (disorder) Active Problem 06/07/2019 [facility] A[facility] [place] Problem Active 2019-06-07 03:52:23 Tomas Drake Morbid obesity (disorder) Morb id obesity (disorder) Active Problem 06/07/2019 [facility] [place] Problem Active 2019-06-07 03:52:23 Carlosor alanis Drake Hypertension Hype rtension Active 08/07/2013 [facility] Problem Active 2013-08-07 22:27:37 Tomas Drake Lower Back Pain Lowe r Back Pain Active 08/07/2013 [facility] Problem Active 2013-08-07 22:27:37 Leeroy earl Drake Irritable Bowel Syndrome Irri table Bowel Syndrome Active 08/07/2013 [facility] Problem Active 2013-08-07 22:27: 37 Amaya Drake Back Pain Back Pain Active 08/07/2013 [facility] Problem Active 2013-08-07 22:27:37 Amaya Drake Upper Back Pain (Between Shoulder Blades) Upper Back Pain (Between Shoulder Blades) Active 08/07/2013 [facility] Problem Ac tive 2013-08-07 22:27:37 [facility] willy Vitamin D Deficiency Melida min D Deficiency Active 08/07/2013 [facility] Problem Active 2013-08-07 22:27:37 [facility] [place] Acute Gastritis Acut e Gastritis Active 08/07/2013 [facility] Problem Active 2013-08-07 22:27:37 M earl Drake Acute Upper Respiratory Infection Acute Upper Respiratory Infection Active 08/07/2013 [facility] Problem Active 2013-08-07 22:27:37 [facility] [place] Acute Pharyngitis Acut e Pharyngitis Active 08/07/2013 [facility] Problem Active 2013-08-07 22:27:37 M earl Drake Unspecified ovarian cyst, left side Unspecified ovarian cyst, left side 01/06/2018 07/21/2018 [facility] Problem 2018-01-06 03:40:12 2018-07-21 13:21:51 2018-07-21 13:21:51 Amaya Drake Allergies, Adverse Reactions, Alerts Allergy Name Allergy Type Status Severity Reaction(s) Onset Date Inacti ve Date Treating Clinician Comments Source pseudoephedrine HCl Allergy to Substance Active 2019-01-23 00:00:00 [facility] Codeine Allergy to Substance Active 2019-01-23 00:00:00 [facility] Ibuprofen Allergy to Substance Active 2019-01-23 00:00:00 [facility] Sulfamethoxazole Allergy to Substance Active 2019-01-23 00: 00:00 [facility] Trimethoprim Allergy to Substance Active 2019-01-23 00:00:0 0 [facility] acetaminophen<sup>1</sup> acetaminophen<sup>1</sup> Active [facility] acetaminophen-HYDROcodone<sup>2</sup> acetaminophen-HYDROcod one<sup>2</sup> Active [facility] guaiFENesin<sup>3</sup> guaiFENesin<sup>3</sup> Active [facility] ibuprofen-pseudoephedrine<sup>4</sup> ibuprofen-pseudoephedr ine<sup>4</sup> Active [facility] sulfamethoxazole-trimethoprim<sup>5</sup> sulfamethoxazole-trimethoprim<sup>5</sup> Active [facility] Codeine Derivatives Codeine Derivatives Active [facility] Uncoded Nonscreenable Allergen Uncoded Nonscreenable Allergen Active [facility] Bactrim TABS Bactrim TABS Active [facility] Cough & Cold TABS Cough & Cold TABS Active [facility] Family History Family Member Diagnosis Comments Start Date Stop Date Source Unknown Family Member Family History 2013-03-30 16:45:30 2 16:45:30 [facility] Social History Social Habit Start Date Stop Date Quantity Comments Source Social History 2013-08-07 22:27:37 2013-08-07 22:27:37 [facility] Medications Ordered Medication Name Filled Medication Name Start Date Stop Da te Current Medication? Ordering Clinician Indication Dosage Frequency Signature (SIG) Comments Components Source amoxicillin 500 mg oral tablet 2017-06-02 16:23:00 Yes 500 mg = 1 tab, PO, BID, X 10 day, # 20 tab, 0 Refill(s), Pharmacy: [facility] [id number] [facility] Fluticasone propionate 0.05 MG/ACTUAT Metered Dose Nasal Spr ay 2017-06-01 15:48:57 Yes See Instru ctions, # 48 mL, Refill(s) 2, SHAKE LIQUID AND USE 1 SPRAY IN EACH NOSTRIL DAILY, Pharmacy: [facility] [address] Amaya Drake Fluticasone propionate 0.05 MG/ACTUAT Metered Dose Nasal Spr ay 2017-05-31 19:15:00 No 1 spray, N IVÁN, Daily, # 1 ea, 2 Refill(s), Pharmacy: [facility] [address] Carlos garcia benzonatate 100 mg oral capsule 2017-05-31 19:15:00 Yes 100 mg = 1 cap, PO, TID, do not crush or chew, X 10 day, # 30 cap, 0 Refill(s), Pharmacy: [facility] [address] Carlos garcia 200 ACTUAT Albuterol 0.09 MG/ACTUAT Metered Dose Inhaler [Pr oAir HFA] 2017-05-31 19:15:00 Yes 1 puff, INHALER, Q4H, PRN for wheezing, # 8.5 gm, 0 Refill(s), Pharmacy: [facility] [place] [address] Amaya Drake Acetaminophen 300 MG / Codeine Phosphate 30 MG Oral Tablet [Tylenol with Codeine #3] 2014-04-16 18:53:00 Yes 1 tab, PO, Q6H, for pain, # 30 tab, 0 Refill(s) Amaya Drake Acetaminophen 300 MG / Codeine Phosphate 30 MG Oral Tablet [Tylenol with Codeine #3] 2014-04-16 15:13:00 No Notes: Do not exceed 4gm/day of acetaminophen. (Same as: Tylenol with Codeine # 3) [facility] Acetaminophen 300 MG / Codeine Phosphate 30 MG Oral Tablet [Tylenol with Codeine #3] 2014-04-16 15:11:00 No Notes: Do not exceed 4gm/day of acetaminophen. (Same as: Tylenol with Codeine # 3) [facility] cefOXitin (SCIP) + Sodium Chloride 0.9% IV 100 mL 2014-04-16 00:00:00 No Notes: (Same As: Mefoxin) [facility] Cefoxitin 20 MG/ML Injectable Solution 2014-04-15 18:00:00 No Notes: (Same As: Mefoxin) [facility] Oxycodone 2014-04-15 17:14:00 No 5 mg, Route: PO, Drug form: TAB, Q4H, Dosing Weight 113.182, kg, PRN Pain Score 4-6, Start date: 04/15/14 11:14:00, Duration: 30 day, Stop date: 05/15/14 11:13:00 [facility] Promethazine 2014-04-15 17:14:00 No 6.25 mg, Route: IVPB, ONCE, Dosing Weight 113.182, kg, PRN Nausea & Vomiting, Start date: 04/15/14 11:14:00 [facility] Ondansetron 2014-04-15 17:14:00 No 4 mg, Route: IVP, ONCE, Dosing Weight 113.182, kg, PRN Nausea & Vomiting, Start date: 04/15/14 11:14:00 [facility] Fentanyl 2014-04-15 17:14:00 No 50 microgram, Route: IVP, Q5Min, Dosing Weight 113.182, kg, PRN Pain Score 7-10, Start date: 04/15/14 11:14:00, Duration: 2 doses or times, Stop date: Limited # of times [facility] Morphine 2014-04-15 17:14:00 No 4 mg, Route: IVP, Q5Min, Dosing Weight 113.182, kg, PRN Pain Score 7-10, Start date: 04/15/14 11:14:00, Duration: 3 doses or times, Stop date: Limited # of times [facility] Meperidine 2014-04-15 17:14:00 No 12.5 mg, Route: IVP, Q30Min, Dosing Weight 113.182, kg, PRN Other -See Comment, For shivering, Start date: 04/15/14 11:14:00, Duration: 2 doses or times, Stop date: Limited # of times [facility] Oxycodone Hydrochloride 1 MG/ML Oral Solution 2014-04-15 17:14:0 0 No 5 mg, Route: NG, Drug form: LIQ, Q4H, Do sing Weight 113.182, kg, PRN Pain Score 4-6, Start date: 04/15/14 11:14:00, Duration: 30 day, Stop date: 05/15/14 11:13:00 Amaya Drake Diphenhydramine 2014-04-15 17:14:00 No 12.5 mg, Route: IVP, Drug form: INJ, Q6H, Dosing Weight 113.182, kg, PRN Itching, Start date: 04/15/14 11:14:00, Duration: 30 day, Stop date: 05/15/14 11:13:00 Amaya Drake Naloxone 2014-04-15 17:14:00 No 0.04 mg, Route: IVP, Q2MIN, Dosing Weight 113.182, kg, PRN Narcotic Reversal, Start date: 04/15/14 11:14:00, Duration: 8 doses or times, Stop date: Limited # of times Amaya Drake Flumazenil 2014-04-15 17:14:00 No 0.2 mg, Route: IVP, PRN, Dosing Weight 113.182, kg, PRN Benzodiazepine Reversal, Initial dose, Start date: 04/15/14 11:14:00, Duration: 30 day, Stop date: 05/15/14 11:13:00 Amaya Drake Hydromorphone 2014-04-15 17:14:00 No 0.5 mg, Route: IVP, Q5Min, Dosing Weight 113.182, kg, PRN Pain Score 7-10, Start date: 04/15/14 11:14:00, Duration: 4 doses or times, Stop date: Limited # of times [facility] [place] Calcium Chloride 0.0014 MEQ/ML / Potassi um Chloride 0.004 MEQ/ML / Sodium Chloride 0.103 MEQ/ML / Sodium Lactate 0.028 MEQ/ML Injectable Solution 2014-04-15 17:14:00 No 1,000 mL, Rate: 125 ml/hr, Infuse over: 8 hr, Route: IV, Dosing Weight 113.182 kg, Total Volume: 1,000, Start date: 04/15/14 11:14:00, Duration: 30 day, Stop date: 05/15/14 11:13:00 Amaya Drake Demerol HCl 2014-04-15 17:08:00 No Notes: (Same as: Demerol) "Use Precaution in Elderly, Seizure disorders, and Renal impairment" Amaya Drake Magnesium Hydroxide 2014-04-15 16:59:00 No Notes: (Same as: Milk of Magnesia, MOM) Amaya Drake Aluminum Hydroxide 40 MG/ML / Magnesium Hydroxide 40 MG/ML / Simethicone 4 MG/ML Oral Suspension 2014-04-15 16:59:00 No Notes: (aluminum hydroxide- magnesium hyd-simethicone [id number]/5ml 30 ml ud MELODY) Amaya Drake Calcium Chloride 0.0014 MEQ/ML / Potassi um Chloride 0.004 MEQ/ML / Sodium Chloride 0.103 MEQ/ML / Sodium Lactate 0.028 MEQ/ML Injectable Solution 2014-04-15 16:59:00 No 1,000 mL, Rate: 125 ml/hr, Infuse over: 8 hr, Route: IV, Dosing Weight 113.182 kg, Total Volume: 1,000, Start date: 04/15/14 10:59:00, Duration: 30 day, Stop date: 05/15/14 10:58:00 Amaya Drake Promethazine 2014-04-15 16:59:00 No Notes: Do not give IV push. (Same as: Phenergan) Amaya Drake Bisacodyl 2014-04-15 16:59:00 No Notes: (Same As: Dulcolax, Bisco-Lax) Amaya Drake Simethicone 2014-04-15 16:59:00 No Notes: ( Same as: Mylicon) Amaya Drake Ondansetron 2014-04-15 16:59:00 No Notes: ( Same as: Zofran) Amaya Drake Calcium Chloride 0.0014 MEQ/ML / Potassi um Chloride 0.004 MEQ/ML / Sodium Chloride 0.103 MEQ/ML / Sodium Lactate 0.028 MEQ/ML Injectable Solution 2014-04-15 13:41:00 No 1,000 mL, Rate: 25 ml/hr, Infuse over: 40 hr, Route: IV, Dosing Weight 113.182 kg, Total Volume: 1,000, Start date: 04/15/14 7:41:00, Duration: 30 day, Stop date: 05/15/14 7:40:00 Amaya Drake meloxicam 15 mg oral tablet 2014-04-10 18:56:00 Yes 15 mg = 1 tab, PO, Daily, 0 Refill(s) Amaya Drake cyclobenzaprine 2014-04-10 18:56:00 Yes 5 mg, PO, as needed for muscle spasm, 0 Refill(s) Amaya Smith ezekiel Esomeprazole 40 MG Enteric Coated Capsule [Nexium] 2014-04 18:56:00 Yes 40 mg = 1 cap, PO, Daily, 0 Refill(s) Amaya Drake metoprolol 50 mg oral tablet, extended release 2014-04-10 18:55: 00 Yes 50 mg = 1 tab, PO, Daily, 0 Refill(s) Amaya Drake Cefoxitin 2014-04-10 18:00:00 No Notes: (Sa me As: Mefoxin) Amaya Drake Azithromycin 250 MG Oral Tablet 2013-08-07 06:00:00 Yes ; Start Date: 08/07/2013; End Date: (Active) Amaya Drake Dexamethasone 4 MG Oral Tablet 2013-08-07 06:00:00 Yes ; Start Date: 08/07/2013; End Date: 08/17/2013 (Active) [facility] [place] Dexamethasone 4 MG Oral Tablet 2013-06-28 06:00:00 Yes ; Start Date: 06/28/2013; End Date: 07/08/2013 (Active) Amaya Drake Azithromycin 250 MG Oral Tablet 2013-06-28 06:00:00 Yes ; Start Date: 06/28/2013; End Date: (Active) Amaya Drake Cyclobenzaprine HCl 5 MG Oral Tablet 2013-03-30 05:00:00 Ye s ; Start Date: 03/30/2013; End Date: 04/29/2013 (Active) Amaya Drake Levbid 0.375 MG Oral Tablet Extended Release 12 Hour 2 05:00:00 Yes ; Start Date: 03/30/2013; End Date: 06/1899 (Active) Amaya Drake Vitamin D3 5000 UNIT Oral Capsule 2013-03-30 05:00:00 Yes ; Start Date: 03/30/2013 (Active) Amaya Smith ezekiel NexIUM 40 MG Oral Capsule Delayed Release 2013-03-30 05:00:00 Yes ; Start Date: 03/30/2013; End Date: (Active) Amaya Drake Metoprolol Succinate ER 50 MG Oral Tablet Extended Release 2 4 Hour 2013-01-12 05:00:00 Yes ; Start Date: 3; End Date: (Active) Amaya Drake Dexilant 60 MG Oral Capsule Delayed Release 2013-01-12 05:00:00 Yes ; Start Date: 01/12/2013 (Active) Mitra Wells Xanax 0.25 MG Oral Tablet 2013-01-12 05:00:00 Yes ; Start Date: 01/12/2013 (Active) Amaya Drake Albuterol Sulfate 0.63 Mg/3 Ml Vial.neb Albuterol Sulfate 0. 63 Mg/3 Ml Vial.neb Yes 1 Daily as needed for Shortness O f Breath [facility] Hydrochlorothiazide 25 Mg Tablet Hydrochlorothiazide 25 Mg Tablet Yes 12.5 Daily [facility] Metoprolol Tartrate 50 Mg Tablet Metoprolol Tartrate 50 Mg Tablet Yes 50 Daily [facility] Meloxicam 7.5 Mg Tablet, 7.5 Mg Oral Meloxicam 7.5 Mg Tablet, 7. 5 Mg Oral 2019-01-25 00:00:00 No 7.5 Twice A Day [facility] Metformin Hcl (Metformin Hcl Er) 500 Mg Tab.er.24, 500 Mg Oral Metformin Hcl (Metformin Hcl Er) 500 Mg Tab.er.24, 500 Mg Oral 2019-01-25 00:00:00 No 500 Daily [facility] Alprazolam (Xanax) 0.25 Mg Tablet, 0.25 Mg Oral Alpraz olam (Xanax) 0.25 Mg Tablet, 0.25 Mg Oral 2019-01-24 00:00:00 No .25 Joy ly [facility] Esomeprazole Magnesium (Nexium) 40 Mg Capsule., 40 M g Oral Esomeprazole Magnesium (Nexium) 40 Mg Capsule., 40 Mg Oral 2019-01-24 00:00:00 No 40 Daily [facility] Vital Signs Vital Name Observation Time Observation Value Comments Source Heart Rate 2017-05-31 19:17:00 Amaya Drake Systolic (mm Hg) 2017-05-31 19:17:00 Tomas Drake Diastolic (mm Hg) 2017-05-31 19:17:00 [facility] [place] Heart Rate 2017-05-31 18:57:00 [facility] [place] Temperature Oral (F) 2017-05-31 18:57:00 98.4 F [facility] Height 2017-05-31 18:57:00 167.64 cm [facility] Respitory Rate 2017-05-31 18:57:00 [facility] [place] BMI Calculated 2017-05-31 18:57:00 [facility] [place] Weight 2017-05-31 18:57:00 [facility] Systolic (mm Hg) 2017-05-31 18:57:00 [facility] [place] Diastolic (mm Hg) 2017-05-31 18:57:00 [facility] [place] Temperature Oral (F) 2014-04-16 17:45:00 98.6 F [facility] [place] Heart Rate 2014-04-16 17:45:00 [facility] Respitory Rate 2014-04-16 17:45:00 [facility] [place] Diastolic (mm Hg) 2014-04-16 17:45:00 [facility] [place] Systolic (mm Hg) 2014-04-16 17:45:00 [facility] [place] Respitory Rate 2014-04-16 14:07:00 [facility] [place] Heart Rate 2014-04-16 14:07:00 [facility] Temperature Oral (F) 2014-04-16 14:07:00 98.0 F [facility] Systolic (mm Hg) 2014-04-16 14:07:00 [facility] [place] Diastolic (mm Hg) 2014-04-16 14:07:00 [facility] [place] Heart Rate 2014-04-16 10:16:00 [facility] Respitory Rate 2014-04-16 10:16:00 [facility] [place] Temperature Oral (F) 2014-04-16 10:16:00 97.7 F [facility] Diastolic (mm Hg) 2014-04-16 10:16:00 [facility] [place] Systolic (mm Hg) 2014-04-16 10:16:00 [facility] [place] Height 2014-04-10 17:31:00 167.64 cm [facility] BMI Calculated 2014-04-10 17:31:00 [facility] [place] Weight 2014-04-10 17:31:00 [facility] Procedures Procedure Date / Time Performed Performing Clinician Sourc e Computed tomography of abdomen and pelvis with contrast 2018 00:00:00 JENELLE ASHTON [facility] Microscopic examination of cervical Papanicolaou smear <sup>1</sup> 2015-03-05 05:00:00 [facility] Partial hysterectomy 2014-04-05 05:00:00 [facility] [place] Colonoscopy<sup>2</sup> 2014-03-05 05:00:00 [facility] [place] Cholecystectomy [facility] Foot joint operations [facility] Tonsillectomy [facility] Arm repair<sup>3</sup> [facility] Mammogram<sup>4</sup> [facility] ermann Plan of Care Planned Activity Planned Date Details Comments Source Future Scheduled Test 2013-08-07 22:27:37 Plan of Care [code = 1877 6-5] [facility] Future Scheduled Test 2013-06-28 22:49:53 Plan of Care [code = 1877 6-5] [facility] Encounters Start Date/Time End Date/Time Encounter Type Admission Type [facility] Care Department Encounter ID Source 2019-06-04 13:00:00 2019-06-04 23:59:00 Outpatient Elsa ThomasOIB M[facility]IB [id number] 2019-03-15 10:04:00 2019-03-15 10:04:00 Outpatient MHSE MHSE [id number] 2019-01-23 23:40:00 2019-01-25 14:01:00 Discharged Inpatient 1 ABUNDIO DENIS [facility] [id number] [facility] 2018-01-01 06:56:00 2018-01-01 23:59:00 Outpatient Rebecca De Dios SE MHSE [id number] 2018-01-01 06:56:00 2018-01-01 23:59:00 Outpatient Rebecca De Dios SE [facility]SE [id number] 2017-06-02 10:23:00 2017-06-03 23:59:59 Outpatient MG MG [id number] 2017-05-31 13:00:00 2017-05-31 23:59:59 Outpatient Caleb Hamilton [facility] [id number] 2016-01-15 13:10:00 2016-01-15 23:59:00 Outpatient Job Ryder MHSE MHSE [id number] 2015-03-03 12:31:00 2015-03-03 23:59:00 Outpatient Christie Schafer MHOIB M[facility]IB [id number] 2014-12-31 09:14:00 2014-12-31 23:59:00 Outpatient Rosalie Mcpherson MHOIB MHOIB [id number] 2014-09-03 06:49:00 2014-09-03 23:59:00 Outpatient YOLA HUNTER MHIE MHIE [id number] 2014-04-15 11:00:00 2014-04-16 14:30:00 Outpatient Rebecca De Dios MHIE MHIE [id number] 2014-03-05 07:40:00 2014-03-05 23:59:00 Outpatient Rebecca De Dios MHIE MHIE [id number] 2013-11-15 16:51:00 2013-11-15 23:59:00 Outpatient Leeroy Parker MHIE MHIE [id number] 2013-08-07 16:27:38 2013-08-07 16:27:37 Outpatient MHIE MHIE [id number] 2013-06-28 16:49:53 2013-06-28 16:49:53 Outpatient MHIE MHIE [id number] 2013-03-30 11:45:31 2013-03-30 11:45:30 Outpatient MHIE MHIE [id number] 2013-01-12 11:11:38 2013-01-12 11:11:17 Outpatient MHIE MHIE [id number] Results Test Description Test Time Test Comments Results Result Comments Source CXR 2 [facility] 2020-04-03 21:34:00 [facility] : 1975 Sex: [place] [address] Patient Name: VIDHI GREENE MR #: [id number] : 1975 Age/Sex: 44/F Req #: [id number] Adm Physician: Ordered by: NIKO PUGA Report #: [id number] [facility] Room/Bed: Procedure: [id number] HOPD/CXR 2 VIEW - HOPD Exam Date: 04/03/20 Exam Time: 2039 REPORT STATUS: Signed EXAMINATION: CXR 2 VIEW - HOPD INDICATION: CP COMPARISON: None FINDINGS: TUBES and LINES: None. LUNGS: Normal lung volumes. Lungs are clear. No consolidations. PLEURA: No pleural effusion or pneumothorax. HEART AND MEDIASTINUM: The cardiomediastinal silhouette is unremarkable. BONES AND SOFT TISSUES: No acute osseous lesion. Soft tissues are unremarkable. UPPER ABDOMEN: No free air under the diaphragm. IMPRESSION: No acute thoracic radiographic abnormality. Signed by: Nena Ya MD on 04/03/2020 9:36 PM Dictated By: NENA YA MD 35 Transcribed By: ANDREW on 04/03/202135 COPY TO: NIKO PUGA DIAG MAMM BILATERAL SOPHIE CAD DIGITAL 2020-02-17 16:39:50 - DIAG MAMM BILATERAL SOPHIE CAD DIGITALBILATERAL DIGITAL DIAGNOSTIC MAMMOGRAM 3D/2D WITH CAD: 02/17/2020CLINICAL: Dense breasts. Digital breast tomosynthesis was performed in addition to routine CC and MLO views. Current mammographic images were evaluated by either a ISH M-Vu or a Spartz ImageChecker CAD (computer aided detection system). Comparison is made to exams dated 10/03/2017 mammogram, mammogram, and [facility] The tissue of both breasts is heterogeneously dense. This may lower the sensitivity of mammography. No suspicious mass, architectural distortion, malignant type calcification, or lymph node abnormality detected. INCOMPLETE: ADDITIONAL IMAGING EVALUATION NEEDEDBilateral ultrasound pending for additional evaluation. - BREAST ULTRASOUND BILATERALULTRASOUND OF BOTH BREASTS AND BOTH AXILLA: 02/17/2020Comparison is made to exams dated 10/03/2017 mammogram, 03/21/2017 mammogram, and 11/27/2015 [facility] Real-time ultrasound of both breasts and both axilla and clinical breast exam were performed. No abnormalities were seen sonographically in either axilla. Benign solid masses were seen. No evidence of malignancy was seen. Unchanged from the previous exam. IMPRESSION: BENIGN There is no sonographic evidence of malignancy. Patient has been informed that she has areas of dense breast tissue that could make it difficult to find a small cancer. A screening mammogram and supplemental ultrasound for dense breast tissue is recommended in 1 year.Mitzi Clay M.D. dm/:02/17/2020 16:39:50 copy to: Noy Stokes MD, ph: [phone], fax: [phone] Technologist: Ramona Mendieta , [facility]-letter sent: BIRADS 1-2 Combo FU Letter Mammogram BI- RADS: 0 Incomplete: Additional Imaging Evaluation Needed Ultrasound BI-RADS: 2 Benign BREAST ULTRASOUND BILATERAL 2020-02-17 16:39:50 - DIAG MAMM BILATERAL SOPHIE CAD DIGITALBILATERAL DIGITAL DIAGNOSTIC MAMMOGRAM 3D/2D WITH CAD: 02/17/2020CLINICAL: Dense breasts. Digital breast tomosynthesis was performed in addition to routine CC and MLO views. Current mammographic images were evaluated by either a ISH M-Vu or a Spartz ImageChecker CAD (computer aided detection system). Comparison is made to exams dated 10/03/2017 mammogram, mammogram, and 11/27/2015 [facility] The tissue of both breasts is heterogeneously dense. This may lower the sensitivity of mammography. No suspicious mass, architectural distortion, malignant type calcification, or lymph node abnormality detected. INCOMPLETE: ADDITIONAL IMAGING EVALUATION NEEDEDBilateral ultrasound pending for additional evaluation. - BREAST ULTRASOUND BILATERALULTRASOUND OF BOTH BREASTS AND BOTH AXILLA: 02/17/2020Comparison is made to exams dated 10/03/2017 mammogram, 03/21/2017 mammogram, and 11/27/2015 [facility] Real-time ultrasound of both breasts and both axilla and clinical breast exam were performed. No abnormalities were seen sonographically in either axilla. Benign solid masses were seen. No evidence of malignancy was seen. Unchanged from the previous exam. IMPRESSION: BENIGN There is no sonographic evidence of malignancy. Patient has been informed that she has areas of dense breast tissue that could make it difficult to find a small cancer. A screening mammogram and supplemental ultrasound for dense breast tissue is recommended in 1 year.Mitzi Clay M.D. dm/:02/17/2020 16:39:50 copy to: Noy Stokes MD, ph: [phone], fax: [phone] Technologist: Ramona Mendieta , [facility] sent: BIRADS 1-2 Combo FU Letter Mammogram BI- RADS: 0 Incomplete: Additional Imaging Evaluation Needed Ultrasound BI-RADS: 2 Benign Bedside Glucose 2019-01-25 12:11:00 Test Item Bedside Glucose (test code = 32997-4) 122 70-120 H Meter ID: [id number] CenterWhite Blood Count 2019-01-25 06:49:00* Test Item Value Reference Range Interpretation Comments White Blood Count (test code = 6690-2) 7.41 4.8-10.8 [facility] CenterRed Blood Rlaun1926-08-36 06:49:00* Test Item Value Reference Range Interpretation Comments Red Blood Count (test code = 789-8) 4.38 3.6-5.1 [facility] CenterHemoglobin2019-08-23 06:49:00* Test Item Value Reference Range Interpretation Comments Hemoglobin (test code = 54468-1) 12.6 12.0-16.0 [facility] CenterHematocrit2019-08-23 06:49:00* Test Item Value Reference Range Interpretation Comments Hematocrit (test code = 4544-3) 38.5 34.2-44.1 [facility] CenterMean Corpuscular Svvvtq5016-75-37 06:49:00* Test Item Value Reference Range Interpretation Comments Mean Corpuscular Volume (test code = 787-2) 87.9 81-99 [facility] CenterMean Corpuscular Wkkhehqyis2300-72-38 06:49:00* Test Item Value Reference Range Interpretation Comments Mean Corpuscular Hemoglobin (test code = 785-6) 28.8 28-32 [facility] CenterMean Corpuscular Hemoglobin Concent 2019-01-25 06:49:00* Test Item Value Reference Range Interpretation Comments Mean Corpuscular Hemoglobin Concent (test code = 786-4) 32.7 31-35 [facility] CenterRed Cell Distribution Esxag1380-60-99 06:49:00* Test Item Value Reference Range Interpretation Comments Red Cell Distribution Width (test code = 45374-1) 13.2 11.7 -14.4 [facility] CenterPlatelet Panry9301-51-79 06:49:00* Test Item Value Reference Range Interpretation Comments Platelet Count (test code = 777-3) 233 140-360 [facility] CenterNeutrophils (%) (Auto)2019-01-25 06:49:00 * Test Item Value Reference Range Interpretation Comments Neutrophils (%) (Auto) (test code = 81335-7) 63.4 38.7-80.0 [facility] CenterLymphocytes (%) (Auto)2019-01-25 06:49:00 * Test Item Value Reference Range Interpretation Comments Lymphocytes (%) (Auto) (test code = 736-9) 27.4 18.0-39.1 [facility] CenterMonocytes (%) (Auto)2019-01-25 06:49:00* Test Item Value Reference Range Interpretation Comments Monocytes (%) (Auto) (test code = 5905-5) 5.8 4.4-11.3 [facility] CenterEosinophils (%) (Auto)2019-01-25 06:49:00 * Test Item Value Reference Range Interpretation Comments Eosinophils (%) (Auto) (test code = 713-8) 2.4 0.0-6.0 [facility] CenterBasophils (%) (Auto)2019-01-25 06:49:00* Test Item Value Reference Range Interpretation Comments Basophils (%) (Auto) (test code = 706-2) 0.7 0.0-1.0 [facility] CenterIM GRANULOCYTES %2019-01-25 06:49:00* Test Item Value Reference Range Interpretation Comments IM GRANULOCYTES % (test code = IM GRANULOCYTES %) 0.3 0.0- 1.0 [facility] CenterNeutrophils # (Auto)2019-01-25 06:49:00* Test Item Value Reference Range Interpretation Comments Neutrophils # (Auto) (test code = 751-8) 4.7 2.1-6.9 [facility] CenterLymphocytes # (Auto)2019-01-25 06:49:00* Test Item Value Reference Range Interpretation Comments Lymphocytes # (Auto) (test code = 12560-9) 2.0 1.0-3.2 [facility] CenterMonocytes # (Auto)2019-01-25 06:49:00* Test Item Value Reference Range Interpretation Comments Monocytes # (Auto) (test code = 742-7) 0.4 0.2-0.8 [facility] CenterEosinophils # (Auto)2019-01-25 06:49:00* Test Item Value Reference Range Interpretation Comments Eosinophils # (Auto) (test code = 711-2) 0.2 0.0-0.4 [facility] CenterBasophils # (Auto)2019-01-25 06:49:00* Test Item Value Reference Range Interpretation Comments Basophils # (Auto) (test code = 704-7) 0.1 0.0-0.1 [facility] CenterAbsolute Immature Granulocyte (auto 2019-01-25 06:49:00* Test Item Value Reference Range Interpretation Comments Absolute Immature Granulocyte (auto (clinton t code = Absolute Immature Granulocyte (auto) 0.02 0-0.1 [facility] CenterLipase2019-08-23 06:47:00* Test Item Value Reference Range Interpretation Comments Lipase (test code = 3040-3) 21 8-78 [facility]viewodium Wzcec6331-92-55 06:24:00* Test Item Value Reference Range Interpretation Comments Sodium Level (test code = 2951-2) 139 136-145 [facility] CenterPotassium Bydaf0040-14-95 06:24:00* Test Item Value Reference Range Interpretation Comments Potassium Level (test code = 2823-3) 3.6 3.5-5.1 [facility] CenterChloride Pxvol3981-05-05 06:24:00* Test Item Value Reference Range Interpretation Comments Chloride Level (test code = 2075-0) 107 98-107 [facility] CenterCarbon Dioxide Omswe5767-42-62 06:24:00* Test Item Value Reference Range Interpretation Comments Carbon Dioxide Level (test code = 2028-9) 24 22- [facility] CenterAnion Mdh9371-65-43 06:24:00* Test Item Value Reference Range Interpretation Comments Anion Gap (test code = 37074-8) 11.6 8-16 [facility] CenterBlood Urea Awondmty9887-11-26 06:24:00* Test Item Value Reference Range Interpretation Comments Blood Urea Nitrogen (test code = 3094-0) 8 7-26 [facility] CenterCreatinine2019-08-23 06:24:00* Test Item Value Reference Range Interpretation Comments Creatinine (test code = 2160-0) 0.61 0.57-1.11 [facility] CenterBUN/Creatinine Ijrlr4473-69-60 06:24:00* Test Item Value Reference Range Interpretation Comments BUN/Creatinine Ratio (test code = 3097-3) 13 6-25 [facility] CenterEstimat Glomerular Filtration Rate 2019-01-25 06:24:00* Test Item Value Reference Range Interpretation Comments Estimat Glomerular Filtration Rate (test code = 541024526) > 60 >60 Ranges were taken from the National Kidney Disease Education Program and the [facility] Kidney Foundation literature.Reference ranges:60 or greater: Nxsapo25-38 ( for 3 consecutive months): Chronic kidney disease 15 or less: Kidney failureCHI [facility] Herm[facility] Medical CenterGlucose Hhlip8015-38-48 06:24:00* Test Item Value Reference Range Interpretation Comments Glucose Level (test code = XCI6790) 122 74-118 H [facility] CenterCalcium Xbsvv1770-40-18 06:24:00* Test Item Value Reference Range Interpretation Comments Calcium Level (test code = 95810-9) 8.1 8.4-10.2 L [facility] CenterCT ABDOMEN/PELVIS G2374-19-86 21:30:00 [place] [address] Patient Name: VIDHI GREENE MR #: [id number] : Age/Sex: 43/F Req #: [id number] Adm Physician: ABUNDIO DENIS MD Ordered by: JENELLE ASHTON MD Report #: [id number] Location: MED/SURG3 Room/Bed: [facility] Procedure: CT/CT ABDOMEN/PELVIS W Exam Date: 01/24/19 Exam T carlin: 1850 REPORT STATUS: Signed EXAM: CT Abdomen and Pelvis WITH contrast INDICATION: Abdominal pain, pancre atitis COMPARISON: Abdominal CT 01/23/2019 TECHNIQUE: Abdomen and pelvis we re scanned utilizing a multidetector helical scanner from the lung base to the pubic symphysis after administration of IV contrast. Coronal and sagittal ref ormations were obtained. Routine protocol was performed. Scan was performed wh en during portal venous phase. IV CONTRAST: 100 mL of Isovue 370 ORAL CONTRAST: None COMPLICATIONS: None RADIATION DOSE: Total DLP: 817 mGy*cm Estimated effective dose: (DLP x 0.015 x size factor) mSv CTDIvol has been reviewed. It is below the limits set by the Radiation Protocol Committee (RPC). Dose modulation, iterative recon struction, and/or weight based adjustment of the mA/kV was utilized to reduce the radiation dose to as low as reasonably achievable. FINDINGS: LI ЮЛИЯ and TUBES: None. LOWER THORAX: Unremarkable HEPATOBILIARY: Diffus e decreased hepatic attenuation. The liver is mildly enlarged. No focal hepat ic lesions. No biliary ductal dilation. GALLBLADDER: There are cholecystec park clips. SPLEEN: No splenomegaly. PANCREAS: No focal masses or d uctal dilatation. ADRENALS: No adrenal nodules KIDNEYS/URETERS: Kidneys enhance symmetrically. There are 2 simple cysts in the inferior pole of the right kidney, the largest measures 1.2 cm. No solid masses. No stones. GI TRACT: No abnormal distention, wall thickening, or evidence of bowel o bstruction. Mild submucosal edema in the gastric antrum (series 2 image 34). Appendix is normal. PELVIC ORGANS/BLADDER: Surgical clips in the right pel vis. Hysterectomy. No adnexal masses.. LYMPH NODES: Slightly prominent me senteric lymph nodes at the mesenteric root. VESSELS: Unremarkable. PE RITONEUM / RETROPERITONEUM: Minimal fat stranding along the mesenteric root. N o free air or fluid. BONES: Unremarkable. SOFT TISSUES: There is a fat containing para-umbilical hernia. 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 Low suspicio n for pancreatitis. Subtle findings suggestive of mild antral gastritis. Signed by: Bennett Muller DO on 01/25/2019 7:50 AM Dictated By: BENNETT MULLER DO 9 Quintero scribed By: ANDREW on 01/25/19749 COPY TO: JENELLE ASHTON MD Troponin Z9943-51-22 18:54:00* Test Item Value Reference Range Interpretation Comments Troponin I (test code = CJJ8611) 0.009 0-0.300 [facility] CenterThyroid Stimulating Hormone (TSH) 2019-01-24 11:13:00* Test Item Value Reference Range Interpretation Comments Thyroid Stimulating Hormone (TSH) (test code = 12935-8) 1.615 0.350-4.940 [facility] CenterTriglycerides Xpspp7167-42-35 11:03:00* Test Item Value Reference Range Interpretation Comments Triglycerides Level (test code = 2571-8) 300 0-149 H [facility] CenterCholesterol Okeah1072-68-96 11:03:00* Test Item Value Reference Range Interpretation Comments Cholesterol Level (test code = 2093-3) 170 0-199 Less than 200 mg/dL Low Lelz395 - 239 mg/dL Borderline Lovx634 m g/dl and greater High Risk [facility] CenterLDL Kpczrticnwz1149-49-26 11:03:00* Test Item Value Reference Range Interpretation Comments LDL Cholesterol (test code = 2089-1) 72 60-130 [facility] CenterHDL Jyrikbigugp7275-46-04 11:03:00* Test Item Value Reference Range Interpretation Comments HDL Cholesterol (test code = 2085-9) 38 40-60 L [facility] CenterCholesterol/HDL Fydig8529-22-77 11:03:00 * Test Item Value Reference Range Interpretation Comments Cholesterol/HDL Ratio (test code = 9830-1) 4.5 3.0-3.6 H [facility] CenterHemoglobin A1c Goeoiga2898-39-67 10:41:00 * Test Item Value Reference Range Interpretation Comments Hemoglobin A1c Percent (test code = Hemoglobin A1c Percent) 5.9 4.0-7.0 [facility] CenterTotal Xcxyaxvmg5175-50-26 08:37:00* Test Item Value Reference Range Interpretation Comments Total Bilirubin (test code = 1975-2) 0.7 0.2-1.2 [facility] CenterAspartate Amino Transf (AST/SGOT) 2019-01-24 08:37:00* Test Item Value Reference Range Interpretation Comments Aspartate Amino Transf (AST/SGOT) (test code = Aspartate Amino Transf (AST/SGOT)) 12 5-34 [facility] CenterAlanine Aminotransferase (ALT/SGPT) 2019-01-24 08:37:00* Test Item Value Reference Range Interpretation Comments Alanine Aminotransferase (ALT/SGPT) (test code = 1742-6) 12 0-55 [facility] CenterTotal Kcmuafv8863-04-21 08:37:00* Test Item Value Reference Range Interpretation Comments Total Protein (test code = 2885-2) 6.0 6.5-8.1 L [facility] CenterAlbumin2019-08-22 08:37:00* Test Item Value Reference Range Interpretation Comments Albumin (test code = 1751-7) 3.2 3.5-5.0 L [facility] CenterGlobulin2019-08-22 08:37:00* Test Item Value Reference Range Interpretation Comments Globulin (test code = 35173-7) 2.8 2.3-3.5 [facility] CenterAlbumin/Globulin Trnyy4661-57-73 08:37:00 * Test Item Value Reference Range Interpretation Comments Albumin/Globulin Ratio (test code = 1759-0) 1.1 0.8-2.0 [facility] CenterAlkaline Xufwhtncvup5958-78-40 08:37:00* Test Item Value Reference Range Interpretation Comments Alkaline Phosphatase (test code = 6768-6) 76 40-150 [facility] CenterCT ABD/PEL WO VLWPLVRI-DJQN7308-08-21 22:42:00 [facility] [address] [place], [place] [address] Patient Name: VIDHI GREENE MR #: [id number] : 1975 Age/Sex: 43/F Req #: [id number] [facility] Physician: Ordered by: BRITTANI SANDERSON MD Report #: [id number] [facility] Room/Bed: Procedure: 0821- 0004 HOPD/CT ABD/PEL WO CONTRAST-HOPD Exam Date: 01/23/19 Exam Time: 2217 REPORT STATUS: Signed EXAM: CT Abdomen and Pelvis WITHOUT contrast INDICATION: Abdominal pain epigastric pain COMPARISON: None. TECHNIQUE: Abdomen and pelvis were scanned utilizing a multidetector helical scanner from the lung base to the p ubic symphysis without administration of IV contrast. Absence of intravenous c ontrast decreases sensitivity for detection of focal lesions and vascular path ology. Coronal and sagittal reformations were obtained. Routine protocol was p erformed. IV CONTRAST: None ORAL CONTRAST: None COMPLICATIONS: None RADIATION DOSE: Total DLP: 799 mGy*cm Est imated effective dose: (DLP x 0.015 x size factor) mSv CTDIvol has been r eviewed. It is below the limits set by the Radiation Protocol Committee (RPC). Dose modulation, iterative reconstruction, and/or weight based adjustment of the mA/kV was utilized to reduce the radiation dose to as low as reasonably achievable. FINDINGS: LINES and TUBES: None. LOWER THORAX: Unremarkable HEPATOBILIARY: Diffuse decreased hepatic attenuation. Mild he patic enlargement. No focal hepatic lesions. No biliary ductal dilation. GALLBLADDER: There are cholecystectomy clips. SPLEEN: No splenomegaly. PANCREAS: Mild peripancreatic fat stranding at the uncinate process. No Fo tarun masses or ductal dilatation. ADRENALS: No adrenal nodules KIDNEYS/URETERS: No hydronephrosis. No cystic or solid mass lesions. Punctate nonobstructive calculus in a left renal interpolar calyx seen on coronal ser ies. GI TRACT: No abnormal distention, wall thickening, or evidence of mariam l obstruction. Appendix is normal. PELVIC ORGANS/BLADDER: Hysterect bertha. No adnexal masses.. LYMPH NODES: No lymphadenopathy. VESSELS: Unr emarkable. PERITONEUM / RETROPERITONEUM: No free air or fluid. BONES: Unremarkable. SOFT TISSUES: Unremarkable. IMPRESSION: 1. Findings suspicious for mild acute edematous pancreatitis at the pancreatic uncinate process. No fluid collections. Correlate with laboratory values. 2. Punctate nonobstructive left renal nephrolithiasis. 3. Hepatomegaly with hepatic steatosis. Signed by: Bennett Muller DO on 01/23/2019 11:04 PM Dictated By: BENNETT MULLER DO 03 Transcribed By: ANDREW on 01/23/192303 COPY TO: BRITTANI BETTS MD EXWOZFGAEQ4000-79-38 12:20:0019.2[facility] LIEHHUDUWZ6031-27-60 12:20:0073.3[facility] IvkzkelMTWWUALTSR5579-73-79 12:20:00 5.7[facility] VugcsnpFDZMZKIYIR4598-61-62 12:20:001.3[facility]annHEMATOLOGY 2014-04-16 12:20:000.5[facility] OvwinejKDCARTQVOL9763-60-27 12:20:002.0[facility] SycpytlPOCJDBYQOX2931-93-21 12:20:007.5[facility] FbdresuXXHJPKOIIP3700-05-57 12:20:000.6[facility] PpvpcfpVTWDEQHAOY2826-74-07 12:20:000.1[facility] QTWCSMUPLX1961-17-42 12:20:004.25[facility] WhlhlhoGZXVAUQFZM7610-44-26 12:20:00 12.3[facility] FlfgopaXWOMGVAUVH5770-46-72 12:20:0033.3[facility]annHEMATOLOGY 2014-04-16 12:20:00* Test Item Value Reference Range Interpretation Comments MCH (test code = MCH) 29.0 pg 27.0-31.0 [facility] FoaxxofLQRPLGPNAY8059-15-12 12:20:0087.3[facility]annHEMATOLOGY 2014-04-16 12:20:007.8[facility] BugblvaWVSDTWVWCD6786-03-88 12:20:0037.1[facility] OygxazdMVHKHBTKRN5621-12-35 12:20:23006Nllvdcxr WgbmfybFKBPQGPZEO9311-31-33 12:20:0013.6[facility] AqdubdqRFQPVXDFXA4324-46-92 12:20:0010.3[facility] URINE STDE2059-05-49 12:15:00Negative (04/15/14 6:15 AM)[facility]annBLOOD BANK QKTIIFB1876-84-48 18:35:00Negative (04/10/14 12:35 PM)[facility] HermannCHEM VNGVT2893-25-16 18:35:0092[facility] NswsfraLBRELIWQBU9702-64-82 18:35:91954 [facility] WpbnlsfAVFOVEPOCR9587-70-17 18:35:008.2[facility]annHEMATOLOGY 2014-04-10 18:35:0013.3[facility] GwiagxhYKYEUCLRAD2440-25-01 18:35:0010.6[facility] OurfhtxHMMYSDOYNF9799-51-35 18:35:0014.9[facility] WzepfmvCWSKXYUJDX8305-03-41 18:35:005.14[facility] VwrumjtSIVYGUIDWM2188-64-57 18:35:0087.2[facility] ROUNGOFPFF1884-13-57 18:35:0044.9[facility] GlkirrwQFWPYTQUAP1771-24-44 18:35:00 33.2[facility] EohordfRFKZATHAYI5143-14-37 18:35:00* Test Item Value Reference Range Interpretation Comments MCH (test code = MCH) 29.0 pg 27.0-31.0 [facility] RhpmsqaVZAEEKNJWA5734-89-57 18:35:000.5[facility]annHEMATOLOGY 2014-04-10 18:35:000.2[facility] VdytbhdCRZBSHKKLB9180-03-00 18:35:000.1[facility] WdaaghuLKKZGQNHVV3633-47-13 18:35:0066.7[facility] OnqldkaOBKVDOUCDZ8434-94-37 18:35:0025.8[facility] PfknwokGAHLSDZOEE8150-01-81 18:35:001.4[facility] PJCTJEOTWC0140-65-78 18:35:005.0[facility] FriowyfFGIZXPSXXR9009-57-43 18:35:001.1 [facility] UlnmjtkABBCYEAGCZ6382-44-83 18:35:002.7[facility]annHEMATOLOGY 2014-04-10 18:35:007.1[facility] MeqzehqISNMDHFCXG7919-63-19 18:35:00Non Reactive *NA*(04/10/14 12:35 PM)[facility] ObbwycqOBOOFNZVEP1597-72-39 18:35:00Negative *NA*(04/10/14 12:35 PM)[facility] DupomqnNYPASIRQOC2520-58-41 18:35:00Negative *NA*(04/10/14 12:35 PM)[facility] MiedinmNPPPEPSSXI7813-51-26 18:35:00Negative *NA*(04/10/14 12:35 PM)[facility]
== END 2020-04-03 22:49 | disposition home or self-care (01) ==
LOC: FSED 20:20
DX: R00.2 Palpitations (principal); E86.0 Dehydration; K52.9 Noninfective gastroenteritis and colitis, unspecified; I10 Essential (primary) hypertension; E11.9 Type 2 diabetes mellitus without complications
CPT/HCPCS: 71046; 80053; 82553; 84484; 85025; 93005; 99284; J7030

== ENCOUNTER 2020-04-09 12:45 | Observation (INO) | payer OTHER ==
[~2020-04-09] VITALS: Ht 167.6 cm; Wt 126.1 kg
[~2020-04-09 12:45] MED LIST changes: +ONDANSETRON ODT8 MG PO
[2020-04-09] MEDS ORDERED: ACETAMINOPHEN 325 MG TAB PO ONE (13:15)
[2020-04-09] MEDS ORDERED: NITROGLYCERIN 2% OINT 1 GM PKT TOP ONE (13:15)
[2020-04-09] MEDS ORDERED: FAMOTIDINE 20 MG TAB PO SCH (13:30)
[2020-04-09] MEDS ORDERED: SODIUM CHLORIDE FLUSH 10 ML SYR INJ PRN (13:30)
[2020-04-09] MEDS ORDERED: MELOXICAM7.5 MG PO (13:35)
[2020-04-09] MEDS ORDERED: METFORMIN HCL500 M1 (13:35)
[2020-04-09] MEDS ORDERED: METOPROLOL SUCC50 MG (13:35)
[2020-04-09] MEDS ORDERED: HYDROCHLOROTH12.5 MG (13:35)
[2020-04-09] MEDS: METOPROLOL TARTRATE 25 MG TAB PO SCH ×2 (13:56→20:43)
[2020-04-09] MEDS: NITROGLYCERIN 2% OINT 1 GM PKT TOP SCH ×2 (13:57→17:44)
[2020-04-09] MEDS ORDERED: FAMOTIDINE 20 MG TAB ONE (14:01)
[2020-04-09] MEDS ORDERED: METOPROLOL TARTRATE 50 MG TAB ONE (14:01)
[2020-04-09] MEDS ORDERED: ACETAMINOPHEN 325 MG TAB ONE (14:01)
[2020-04-09] MEDS ORDERED: NITROGLYCERIN 2% OINT 1 GM PKT ONE (14:02)
[2020-04-09] MEDS ORDERED: DIPHENHYDRAMINE HCL INJ 50 MG/ML VIAL IV PRN (14:45)
[2020-04-09] MEDS ORDERED: ACETAMINOPHEN 325 MG TAB PO PRN (14:45)
[2020-04-09] MEDS ORDERED: CLONIDINE HCL 0.2 MG TAB PO PRN (14:45)
[2020-04-09] MEDS ORDERED: ENOXAPARIN 30 MG/0.3 ML SYR SC ONE (14:45)
[2020-04-09] MEDS ORDERED: MORPHINE SULFATE INJ 4 MG/ML INJ 1ML IV PRN (14:45)
[2020-04-09] MEDS ORDERED: ZOLPIDEM TARTRATE 5 MG TAB PO PRN (14:45)
[2020-04-09] MEDS ORDERED: ENALAPRILAT IV INJ 1.25 MG/ML VIAL IV PRN (14:45)
[2020-04-09] MEDS ORDERED: DEXTROSE 50% SYRINGE 50 ML IV PRN ×2 (14:45→15:30)
[2020-04-09 15:22] LABS: BASOPHILS # (AUTO) 0.1 (0.0-0.1); BASOPHILS % 0.6 % (0.0-1.0); EOSINOPHILS # (AUTO) 0.1 (0.0-0.4); EOSINOPHILS % 1.1 % (0.0-6.0); HEMATOCRIT 47.6 % (34.2-44.1); HEMOGLOBIN 15.4 g/dL (12.0-16.0); LYMPHOCYTES # (AUTO) 2.7 (1.0-3.2); LYMPHOCYTES % 22.9 % (18.0-39.1); MEAN CORPUSCULAR HEMOGLOBIN 28.2 pg (28-32); MEAN CORPUSCULAR HGB CONC 32.4 g/dL (31-35); MEAN CORPUSCULAR VOLUME 87.2 fL (81-99); MONOCYTES # (AUTO) 0.7 (0.2-0.8); MONOCYTES % 5.9 % (4.4-11.3); NEUTROPHILS # (AUTO) 8.2 (2.1-6.9); NEUTROPHILS % 69.1 % (38.7-80.0); PLATELET COUNT 316 x10e3/uL (140-360); RED BLOOD COUNT 5.46 x10e6/uL (3.6-5.1); RED CELL DISTRIBUTION WIDTH 13.7 % (11.7-14.4)
[2020-04-09] MEDS ORDERED: ENOXAPARIN SODIUM INJ 100 MG/ML SYR SC ONE (15:30)
[2020-04-09] MEDS ORDERED: CHOLESTYRAMINE 4 GM PACKET PO PRN (15:45)
[2020-04-09 15:52] VITALS: BP 137/94
[2020-04-09 15:57] VITALS: BP 137/94
[2020-04-09 15:59] LABS: CREATINE KINASE MB < 1.00 ng/mL (0-4.3)
[2020-04-09 16:20] LABS: CREATINE KINASE 24 IU/L (29-168)
[2020-04-09] MEDS ORDERED: INSULIN REGULAR, HUMAN 100 UNIT/1 ML 3ML VIAL SQ SCH (16:30)
[2020-04-09] MEDS: INSULIN LISPRO 100 UNIT/1 ML 3ML VIAL SQ SCH ×2 (16:30→20:42)
[2020-04-09 16:39] LABS: ALANINE AMINOTRANSFERASE 22 IU/L (0-55); ALBUMIN 3.7 g/dL (3.5-5.0); ALBUMIN/GLOBULIN RATIO 1.2 (0.8-2.0); ALKALINE PHOSPHATASE 78 IU/L (40-150); BLOOD UREA NITROGEN 9 mg/dL (7-26); BUN/CREATININE RATIO 14 (6-25); CALCIUM 9.1 mg/dL (8.4-10.2); CARBON DIOXIDE 23 mmol/L (22-29); CHLORIDE 103 mmol/L (98-107); CREATININE, SERUM 0.66 mg/dL (0.57-1.11); EST GLOMERULAR FILTRATION RATE > 60 ML/MIN (60-); GLUCOSE 103 mg/dL (74-118); SODIUM 138 mmol/L (136-145)
[2020-04-09 20:00] VITALS: BP 135/85
[2020-04-09] MEDS: ONDANSETRON HCL INJ 2MG/ML 2ML 2 MG/ML VIAL IV PRN (20:44)
[2020-04-09] MEDS: MORPHINE SULFATE 2 MG/ML SYR 1ML IV PRN (20:44)
[2020-04-09] MEDS ORDERED: ZOLPIDEM TARTRATE 10 MG TAB PO PRN (21:00)
[2020-04-09] MEDS ORDERED: SIMVASTATIN 40 MG TAB PO SCH (21:00)
[2020-04-10 02:09] VITALS: BP 112/67
[2020-04-10 05:35] LABS: BASOPHILS # (AUTO) 0.1 (0.0-0.1); BASOPHILS % 0.7 % (0.0-1.0); EOSINOPHILS # (AUTO) 0.2 (0.0-0.4); EOSINOPHILS % 1.5 % (0.0-6.0); HEMATOCRIT 42.6 % (34.2-44.1); HEMOGLOBIN 13.4 g/dL (12.0-16.0); LYMPHOCYTES # (AUTO) 3.4 (1.0-3.2); LYMPHOCYTES % 30.4 % (18.0-39.1); MEAN CORPUSCULAR HEMOGLOBIN 27.9 pg (28-32); MEAN CORPUSCULAR HGB CONC 31.5 g/dL (31-35); MEAN CORPUSCULAR VOLUME 88.6 fL (81-99); MONOCYTES # (AUTO) 0.8 (0.2-0.8); MONOCYTES % 6.7 % (4.4-11.3); NEUTROPHILS # (AUTO) 6.8 (2.1-6.9); NEUTROPHILS % 60.4 % (38.7-80.0); PLATELET COUNT 269 x10e3/uL (140-360); RED BLOOD COUNT 4.81 x10e6/uL (3.6-5.1); RED CELL DISTRIBUTION WIDTH 13.4 % (11.7-14.4)
[2020-04-10 06:05] VITALS: BP 111/77
[2020-04-10 06:09] LABS: ALANINE AMINOTRANSFERASE 18 IU/L (0-55); ALBUMIN 3.1 g/dL (3.5-5.0); ALBUMIN/GLOBULIN RATIO 1.1 (0.8-2.0); ALKALINE PHOSPHATASE 63 IU/L (40-150); ANION GAP 13.9 mmol/L (8-16); BLOOD UREA NITROGEN 12 mg/dL (7-26); BUN/CREATININE RATIO 16 (6-25); CALCIUM 8.4 mg/dL (8.4-10.2); CARBON DIOXIDE 25 mmol/L (22-29); CHLORIDE 102 mmol/L (98-107); CREATININE, SERUM 0.75 mg/dL (0.57-1.11); EST GLOMERULAR FILTRATION RATE > 60 ML/MIN (60-); GLUCOSE 117 mg/dL (74-118); POTASSIUM 3.9 mmol/L (3.5-5.1); SODIUM 137 mmol/L (136-145)
[2020-04-10] MEDS: NITROGLYCERIN 2% OINT 1 GM PKT TOP SCH ×2 (06:35)
[2020-04-10 06:56] LABS: CHOL/HDL RATIO 5.8 (3.0-3.6); CHOLESTEROL 173 MD/DL (0-199); HDL CHOLESTEROL 30 MG/DL (40-60); TRIGLYCERIDES 552 MG/DL (0-149)
[2020-04-10 07:06] LABS: CREATINE KINASE 17 IU/L (29-168)
[2020-04-10 07:19] LABS: CREATINE KINASE MB < 1.00 ng/mL (0-4.3)
[2020-04-10] MEDS: INSULIN LISPRO 100 UNIT/1 ML 3ML VIAL SQ SCH (07:30)
[2020-04-10] MEDS ORDERED: PANTOPRAZOLE SOD 40 MG TABEC PO SCH (07:30)
[2020-04-10] MEDS: MORPHINE SULFATE 2 MG/ML SYR 1ML IV PRN (08:28)
[2020-04-10 08:43] VITALS: BP 123/81
[2020-04-10] MEDS: ONDANSETRON HCL INJ 2MG/ML 2ML 2 MG/ML VIAL IV PRN (08:50)
[2020-04-10] MEDS: METOPROLOL TARTRATE 25 MG TAB PO SCH (08:54)
[2020-04-10] MEDS ORDERED: CHLORTHALIDONE 25 MG TAB PO SCH (09:00)
[2020-04-10] MEDS ORDERED: VALSARTAN 160 MG TAB PO SCH (09:00)
[2020-04-10 09:34] VITALS: BP 123/81
[2020-04-10 12:30] VITALS: BP 132/83
[2020-04-10] MEDS ORDERED: ONDANSETRON HCL 4 MG ORAL DISINTEGRATING TAB PO PRN (12:30)
[2020-04-10 15:01] LABS: CREATINE KINASE MB 0.2 ng/mL (0-5.0)
[2020-04-10] MEDS ORDERED: DIOVAN160 MG PO (16:43)
[2020-04-10 17:30] VITALS: BP 128/85
== END 2020-04-10 17:38 | disposition home or self-care (01) ==
LOC: FSED 13:10 → ERHOLD 13:23 → MED/SURG3 14:32
PROVIDERS: ADMIT Internal Medicine; ATTEND Internal Medicine
DX: R07.89 Other chest pain (principal); I10 Essential (primary) hypertension; E11.9 Type 2 diabetes mellitus without complications; E66.9 Obesity, unspecified; I16.0 Hypertensive urgency; R00.2 Palpitations; Z88.5 Allergy status to narcotic agent; Z88.2 Allergy status to sulfonamides; Z88.8 Allergy status to other drugs, medicaments and biological substances; Z20.828 Contact with and (suspected) exposure to other viral communicable diseases; Z68.41 Body mass index [BMI] 40.0-44.9, adult; Z79.84 Long term (current) use of oral hypoglycemic drugs
CPT/HCPCS: 36415 ×2; 70450; 71045; 72050; 80053 ×2; 80061; 81003; 82550 ×2; 82553 ×2; 82948; 83036; 84484 ×2; 85025 ×2; 93005; 97116; 97161; 99284; G0378 ×2; J1650; J2270 ×2; J2405 ×2; S0164; U0002

== ENCOUNTER 2021-07-24 10:51 | Emergency (ER) | payer BC, OTHER ==
[~2021-07-24] VITALS: Ht 167.6 cm; Wt 120.2 kg
[~2021-07-24 10:51] MED LIST changes: +DIOVAN160 MG PO; +HYDROCHLOROTH12.5 MG; +METFORMIN HCL500 M1 PO; +METOPROLOL SUCC50 MG
[2021-07-24] MEDS ORDERED: TRAMADOL HCL 50 MG TAB PO STA (11:08)
[2021-07-24] MEDS ORDERED: OZEMPIC0.25 MG/0. SC (11:12)
[2021-07-24] MEDS ORDERED: TRAMADOL HCL 50 MG TAB ONE (11:32)
[2021-07-24] MEDS ORDERED: ULTRAM 50MG50 MG PO (11:33)
== END 2021-07-24 12:00 | disposition home or self-care (01) ==
LOC: FSED 11:09
DX: S82.831A Other fracture of upper and lower end of right fibula, initial encounter for closed fracture (principal); W01.0XXA Fall on same level from slipping, tripping and stumbling without subsequent striking against object, initial encounter; Y93.01 Activity, walking, marching and hiking; Y92.89 Other specified places as the place of occurrence of the external cause
CPT/HCPCS: 99284

== ENCOUNTER 2021-08-13 12:58 | Emergency (ER) | payer BC ==
[~2021-08-13] VITALS: Ht 167.6 cm; Wt 121.3 kg
[~2021-08-13 12:58] MED LIST changes: +OZEMPIC0.25 MG/0. SC; +ULTRAM 50MG50 MG PO
[2021-08-13] MEDS ORDERED: SODIUM CHLORIDE 0.9% 1000ML 1,000 ML ONE ×2 (14:12→15:29)
[2021-08-13] MEDS ORDERED: ONDANSETRON HCL INJ 2MG/ML 2ML 2 MG/ML VIAL ONE (14:12)
[2021-08-13] MEDS ORDERED: FAMOTIDINE 20 MG/2 ML VIAL IV ONE (14:13)
[2021-08-13] MEDS ORDERED: FAMOTIDINE 20 MG/2 ML VIAL IV STA (14:28)
[2021-08-13] MEDS ORDERED: ONDANSETRON HCL INJ 2MG/ML 2ML 2 MG/ML VIAL IV STA (14:28)
[2021-08-13] MEDS ORDERED: SODIUM CHLORIDE 0.9% 1000ML 1,000 ML IV SCH (14:30)
[2021-08-13] MEDS ORDERED: PROMETHAZINE 12.5MG/ NACL 0.9% 12.5 MG/50 ML BAG IV ONE (14:30)
[2021-08-13] MEDS ORDERED: PROMETHAZINE HCL (IM) 25 MG/ML VIAL IM ONE (14:41)
[2021-08-13] MEDS ORDERED: SODIUM CHLORIDE 0.9% 1000ML 1,000 ML IV ONE (15:30)
[2021-08-13 16:19] VITALS: BP 126/75
[2021-08-13] MEDS ORDERED: ONDANSETRON ODT4 MG PO (16:19)
[2021-08-13] MEDS ORDERED: PROMETHAZINE12.5 M1 PO (16:21)
[2021-08-13] MEDS ORDERED: FAMOTIDINE40 MG PO (16:23)
== END 2021-08-13 16:34 | disposition home or self-care (01) ==
LOC: FSED 13:15
DX: R10.10 Upper abdominal pain, unspecified (principal); K52.9 Noninfective gastroenteritis and colitis, unspecified; R11.2 Nausea with vomiting, unspecified; E86.0 Dehydration; E11.65 Type 2 diabetes mellitus with hyperglycemia; I10 Essential (primary) hypertension; R00.0 Tachycardia, unspecified
CPT/HCPCS: 80048; 80076; 81003; 82553; 84484; 85025; 93005; 96374; 96376; 99284; J2405; J2550; J7030

== ENCOUNTER 2022-02-25 10:37 | Emergency (ER) | payer BC ==
[~2022-02-25] VITALS: Ht 167.6 cm; Wt 122.5 kg
[~2022-02-25 10:37] MED LIST changes: +FAMOTIDINE40 MG PO; +ONDANSETRON ODT4 MG PO; +PROMETHAZINE12.5 M1 PO
[2022-02-25] MEDS ORDERED: SODIUM CHLORIDE 0.9% 1000ML 1,000 ML IV STA (10:50)
[2022-02-25] MEDS ORDERED: ONDANSETRON HCL INJ 2MG/ML 2ML 2 MG/ML VIAL IV ONE (11:00)
[2022-02-25] MEDS ORDERED: KETOROLAC TROMETHAMINE 30 MG/ML VIAL IV ONE (11:00)
[2022-02-25] MEDS ORDERED: ONDANSETRON HCL INJ 2MG/ML 2ML 2 MG/ML VIAL ONE (11:17)
[2022-02-25] MEDS ORDERED: KETOROLAC TROMETHAMINE 30 MG/ML VIAL ONE (11:18)
[2022-02-25] MEDS ORDERED: SODIUM CHLORIDE 0.9% 1000ML 1,000 ML ONE (11:18)
[2022-02-25] MEDS ORDERED: IBUPROFEN200 MG PO (11:47)
[2022-02-25] MEDS ORDERED: ONDANSETRON ODT4 MG PO (11:47)
[2022-02-25] MEDS ORDERED: HYDROCODON-ACE1 EA12 PO (11:47)
[2022-02-25] MEDS ORDERED: FLOMAX0.4 MG PO (11:47)
== END 2022-02-25 12:20 | disposition home or self-care (01) ==
LOC: FSED 10:43
DX: R10.30 Lower abdominal pain, unspecified (principal); N13.2 Hydronephrosis with renal and ureteral calculous obstruction; R31.9 Hematuria, unspecified; E11.65 Type 2 diabetes mellitus with hyperglycemia; I10 Essential (primary) hypertension; J45.909 Unspecified asthma, uncomplicated
CPT/HCPCS: 74176; 80048; 80076; 81003; 85025; 99284; J1885; J2405; J7030

== ENCOUNTER 2022-03-13 19:05 | Emergency (ER) | payer BC ==
[~2022-03-13] VITALS: Ht 167.6 cm; Wt 122.5 kg
[~2022-03-13 19:05] MED LIST changes: +FLOMAX0.4 MG PO; +HYDROCODON-ACE1 EA12 PO; +IBUPROFEN200 MG PO
[2022-03-13] MEDS ORDERED: DEXAMETHASONE 10MG/ML PF INJ IM ONE (19:45)
[2022-03-13] MEDS ORDERED: DEXAMETHASONE SOD PHOS INJ 4 MG/ML SDV ONE (20:09)
[2022-03-13] MEDS ORDERED: PREDNISONE20 MG PO (20:29)
[2022-03-13] MEDS ORDERED: KETOROLAC TROME10 MG PO (20:29)
[2022-03-13] MEDS ORDERED: HYDROXYZIN10 MG/5 ML PO (20:29)
[2022-03-13 20:39] VITALS: BP 138/78
== END 2022-03-13 20:39 | disposition home or self-care (01) ==
LOC: FSED 19:09
DX: R21 Rash and other nonspecific skin eruption (principal); T78.40XA Allergy, unspecified, initial encounter; E11.65 Type 2 diabetes mellitus with hyperglycemia; I10 Essential (primary) hypertension; J45.909 Unspecified asthma, uncomplicated
CPT/HCPCS: 80053; 81003; 85025; 96372; 99283; J1100

== ENCOUNTER → 2022-03-21 | Outpatient (CLI) | payer BC ==
[~2022-03-21] MED LIST changes: +HYDROXYZIN10 MG/5 ML PO; +IOPAMIDOL 300MG/ML 100 ML INFUS..BTL IV ONE; +KETOROLAC TROME10 MG PO; +PREDNISONE20 MG PO
[2022-03-21 09:59] LABS: CREATININE, SERUM 0.75 mg/dL (0.57-1.11)
== END ==
LOC: DX 08:53
PROVIDERS: ATTEND Urology
DX: N13.30 Unspecified hydronephrosis (principal); N20.1 Calculus of ureter
CPT/HCPCS: 36415; 74400; 82565; 84520; Q9967

== ENCOUNTER 2022-08-25 18:25 | Emergency (ER) | payer BC ==
[~2022-08-25] VITALS: Ht 167.6 cm; Wt 122.5 kg
[~2022-08-25 18:25] MED LIST changes: -IOPAMIDOL 300MG/ML 100 ML INFUS..BTL IV ONE
[2022-08-25] MEDS ORDERED: ONDANSETRON HCL INJ 2MG/ML 2ML 2 MG/ML VIAL IV STA (19:31)
[2022-08-25] MEDS ORDERED: FAMOTIDINE 20 MG/2 ML VIAL IV STA (19:33)
[2022-08-25] MEDS ORDERED: SODIUM CHLORIDE 0.9% 1000ML 1,000 ML IV SCH ×2 (19:45→21:15)
[2022-08-25] MEDS ORDERED: ACETAMINOPHEN 325 MG TAB PO ONE (19:45)
[2022-08-25] MEDS ORDERED: FAMOTIDINE 20 MG/2 ML VIAL IV ONE (19:56)
[2022-08-25] MEDS ORDERED: ONDANSETRON HCL INJ 2MG/ML 2ML 2 MG/ML VIAL ONE (19:56)
[2022-08-25] MEDS ORDERED: SODIUM CHLORIDE 0.9% 1000ML 1,000 ML ONE ×2 (19:56→21:32)
[2022-08-25] MEDS ORDERED: ACETAMINOPHEN 325 MG TAB ONE (20:22)
[2022-08-25] MEDS ORDERED: PROMETHAZINE 25MG/ NS 50ML (IV) IV ONE (21:15)
[2022-08-25] MEDS ORDERED: [UNRECOGNIZED DRUG - OTHER] IV ONE (21:30)
[2022-08-25] MEDS ORDERED: PROMETHAZINE IV ONE (21:30)
[2022-08-25] MEDS ORDERED: SODIUM CHLORIDE IV ONE (21:30)
[2022-08-25] MEDS ORDERED: PROMETHAZINE HCL (IM) 25 MG/ML VIAL IM ONE (21:32)
[2022-08-25] MEDS ORDERED: IOPAMIDOL 370 MG/ML 100 ML INFUS..BTL INJ ONE (21:43)
[2022-08-25] MEDS ORDERED: PROMETHAZINE HC25 M1 PO (23:30)
[2022-08-25 23:43] VITALS: BP 103/62
== END 2022-08-25 23:43 | disposition home or self-care (01) ==
LOC: FSED 18:35
DX: R50.9 Fever, unspecified (principal); K52.9 Noninfective gastroenteritis and colitis, unspecified; R11.2 Nausea with vomiting, unspecified; E11.65 Type 2 diabetes mellitus with hyperglycemia; I10 Essential (primary) hypertension; J45.909 Unspecified asthma, uncomplicated; Z20.822 Contact with and (suspected) exposure to COVID-19
CPT/HCPCS: 74177; 80048; 80076; 81003; 85025; 87400; 99284; J2405; J2550; J7030; Q9967; U0002

== ENCOUNTER 2024-06-13 17:52 | Emergency (ER) | payer BC, OTHER ==
[~2024-06-13] VITALS: Ht 167.6 cm; Wt 124.3 kg
[~2024-06-13 17:52] MED LIST changes: +METFORMIN HCL500 MG PO; +PROMETHAZINE HC25 M1 PO; +PROVENTIL HFA6.7 GM INH
[2024-06-13] MEDS: KETOROLAC TROMETHAMINE 30 MG/ML VIAL IV STA (18:30)
[2024-06-13] MEDS ORDERED: IOPAMIDOL 370 MG/ML 100 ML INFUS..BTL INJ ONE (19:01)
[2024-06-13 19:45] VITALS: BP 128/75; PULSE 92; RESP 18; TEMP 98.6; O2SAT 97
== END 2024-06-13 19:45 | disposition home or self-care (01) ==
LOC: FSED 18:05
DX: R10.31 Right lower quadrant pain (principal); I10 Essential (primary) hypertension; E11.9 Type 2 diabetes mellitus without complications; J45.909 Unspecified asthma, uncomplicated; M19.09 Primary osteoarthritis, other specified site; E66.9 Obesity, unspecified
CPT/HCPCS: 74177; 80048; 85025; 99283; J1885; Q9967